=== PATIENT | male | born 1950 | race Caucasian/White ===

== ENCOUNTER 2017-12-01 08:14 | Day surgery (SDC) | payer MEDICARE, OTHER, SELFPAY ==
[2017-12-01] VITALS (7 sets, daily range): BP systolic 95–133; BP diastolic 49–75; PULSE 61–71; RESP 18; TEMP 36.1–36.7; O2SAT 95–97; BMI 33.4
--- NOTE | 2017-12-01 | IMM_PTH ---
PATIENT: JEAN CARLOS LUNA LOC: EN U#:[id number] AGE/SX: 67/M ROOM: RE12/01/[address]: Dr. Leonardo Savage MD : 1950 BED: DIS: 12/01/2017 SPEC #: [id number] RECD: 12/02/17 11:44 STATUS: JOSEFINA REKaren #: [id number] JEROME: 12/01/17 00:[address]: Leonardo Savage DEPT: IMMUNOHISTOCHEMISTRY RECD BY: María Elena Stevens ENTERED: 12/02/17 11:44 SP TYPE: IMMUNO OTHR DR: Dr. Primo Savage III, MD Tissues: A - Stomach, NOS Procedures: H Pylori (initial) PHYSICIAN & INSTITUTION [place] [id number] SPECIMEN INFORMATION: Tissue Source: A ? Antral biopsy Clinical Info: Esophageal dysfunction; dysphagia Specimen Number: [id number] CPT code: 29706 METHODOLOGY: Deparaffinized sections of prefer/formalin-fixed tissue or PAP/DQ stained slides are incubated with monoclonal/polyclonal antibodies/oligonucleotide probes. Localization is made via biotin free immunoperoxidase method. Appropriate controls are performed and reacted as expected. Results on target cell population are indicated in the following table: RESULTS: ANTIBODY / CLONE RESULT Block A H Pylori (polyclonal) negative These tests were developed and their performance characteristics determined by [facility]. They may not have been cleared or approved by the U.S. Food and Drug Administration. The FDA has determined that such clearance or approval is not necessary. INTERPRETATION: A. Antral biopsy: Negative for Helicobacter pylori organisms. SJ:asndor 12/03/17
--- NOTE | 2017-12-01 | EGD_PTH ---
PATIENT: JEAN CARLOS LUNA LOC: EN U#:[id number] AGE/SX: 67/M ROOM: RE12/01/[address]: Dr. Leonardo Savage MD : 1950 BED: DIS: 12/01/2017 SPEC #: [id number] RECD: 12/01/17 13:08 STATUS: JOSEFINA JANEEN #: [id number] JEROME: 12/01/17 00:[address]: Leonardo Savage DEPT: SURGICAL PATHOLOGY RECD BY: [place] Lauren ENTERED: 12/01/17 14:23 SP TYPE: EGD BIOPSY OT DR: Dr. Primo Savage III, MD Tissues: A - Gastric mucous membrane B - Esophageal mucous membrane Procedures: Surgery Specimen Level IV HEADER OPERATION: EGD PRE-OP DIAGNOSIS: Esophageal dysfunction; dysphagia TISSUE SUBMITTED: A ? Antral biopsy for H. pylori and path, B ? Distal esophageal biopsy MICROSCOPIC DIAGNOSIS A. Antral biopsy: Mild gastritis. A minute lymphoid aggregate, favor benign. B. Distal esophagus, biopsy: Fragments of squamous epithelium with minimal chronic inflammation. SJ:sandor 12/02/17 COMMENT A. The results of immunohistochemistry for Helicobacter pylori will be reported separately ([id number]). MICROSCOPIC DESCRIPTION Slides are reviewed. A. The specimen shows fragments of gastric mucosa with chronic inflammatory cell infiltrates in the lamina propria consisting of lymphocytes and plasma cells, consistent with mild chronic gastritis. A minute lymphoid aggregate is also noted, favor benign. GROSS DESCRIPTION A - Received in fixative is one container labeled with the patient's name and designated antral biopsy. The specimen consists of one irregular fragment of light montoya soft tissue that measures 0.5 x 0.2 x 0.1 cm. The specimen is totally submitted in one cassette. B - Received in fixative is one container labeled with the patient's name and designated distal esophagus biopsy. The specimen consists of multiple irregular fragments of light montoya soft tissue that in aggregate measure 0.3 x 0.2 x 0.1 cm. The specimen is totally submitted in one cassette. / AM:sandor 12/01/17 TC:3 CPT: 55684 x2
--- NOTE | 2017-12-01 10:39 | OP.PCM_ITS ---
Problem List (1) Dysphagia Status: Acute Qualifiers: Dysphagia type: esophageal phase Qualified Code(s): R13.10 - Dysphagia, unspecified (2) Family history of colon cancer in father Status: Acute Report of Operation Date of Procedure: 12/01/17 Pre-Operative Diagnosis: Intermittent food bolus esophageal obstruction. Family history of colon cancer Post-Operative Diagnosis: Normal-appearing upper endoscopy. Descending and sigmoid diverticulosis Surgery/Procedure Performed:: Esophagogastroduodenoscopy with antral and distal esophageal biopsies. Colonoscopy Description of Surgical Findings:: Amount and informed consent was obtained. 67-year-old gentleman was taken to the endoscopy suite. His oropharynx anesthetized with Topex. He was placed in a left lateral decubitus position. He underwent monitored anesthesia care. Flexible gastroscope was inserted into the esophageal inlet and advanced without difficulty. EG junction was at 43 cm. Did not appear to be remarkable. Possibly a very small hiatal hernia but this was not distinct. There is no evidence to suggest reflux esophagitis. The scope was then further advanced to the stomach which appeared to be unremarkable. Scope was advanced through the pylorus first and second portion of the duodenum were inspected this was not remarkable. The scope was withdrawn back to the stomach retroflexed the EG junction and cardia inspected this appeared to be snug against the scope. The scope was placed back in antegrade viewing position. Antral biopsy was obtained. Excess fluid and air was aspirated free. The scope was withdrawn to the distal esophagus and distal esophageal biopsy obtained. That area was inspected and it did not see any gross evidence of hernia. The scope was carefully withdrawn without additional abnormality Digital rectal exam performed. Normal anal tone. Mild hemorrhoidal changes. 2 + with prostate. Flexible colonoscope inserted the rectum advanced through a somewhat tortuous sigmoid colon extensively involved with diverticulosis and the scope was rather readily advanced to the transverse colon and with transabdominal pressure is advanced to the cecum. The cecum ileocecal valve area was nicely achieved bowel prep was good care scope was carefully withdrawn from the ascending transverse descending and sigmoid colon. Descending and sigmoid diverticulosis identified but no evidence of acute inflammation. The scope was retroflexed within the rectum anorectal verge and hemorrhoidal changes noted. Excess fluid nurse aspirated free the procedure was completed with the patient tolerating it well. Impression No gross evidence of findings that would correlate with intermittent food bolus obstructions or dysphasia. Antral and distal esophageal biopsies pending. Descending and sigmoid diverticulosis. Recommendations will be for follow-up colonoscopy in 5 years based upon family history. Previous colonoscopy was October 26, 2012. There were no acute upper GI findings at this time. The patient will be notified of pathology results as they become available. Cc: Dr. Primo Savage, III The upper endoscopy started at 1009. It was completed at 1014. The colonoscopy was started at 1018. The cecum was reached at 1023. The procedure was completed at 1029. Leonardo Savage M.D., F.A.C.S. Type of Anesthesia:: MAC
== END 2017-12-01 11:10 | disposition home or self-care (01) ==
LOC: EN 08:15 → AC 08:16
PROVIDERS: Family Provider Family Medicine; PCP Family Medicine; Visit Provider Surgery
PROC: 0DJD8ZZ Inspection of Lower Intestinal Tract, Via Natural or Artificial Opening Endoscopic (ICD-10-PCS; CPT 45378; principal; 2017-12-01 09:10)
DX: K21.0 Gastro-esophageal reflux disease with esophagitis (principal); K29.70 Gastritis, unspecified, without bleeding; K57.30 Diverticulosis of large intestine without perforation or abscess without bleeding; K64.9 Unspecified hemorrhoids; K58.9 Irritable bowel syndrome, unspecified; F41.9 Anxiety disorder, unspecified; N52.9 Male erectile dysfunction, unspecified; M19.90 Unspecified osteoarthritis, unspecified site; I49.9 Cardiac arrhythmia, unspecified; Z86.010 Personal history of colon polyps; Z80.0 Family history of malignant neoplasm of digestive organs; Z87.19 Personal history of other diseases of the digestive system; Z87.891 Personal history of nicotine dependence; Z79.899 Other long term (current) drug therapy
CPT/HCPCS: 43239; 45378; 88305; 88342; J7120

== ENCOUNTER 2020-11-22 13:03 | Outpatient (RCR) | payer MEDICARE, OTHER, SELFPAY ==
[2017-12-01 08:28] VITALS: BMI 33.4
[2020-11-22] MEDS: COVID-19 VACC, MRNA(PFIZER)/PF 30 MCG/0.3 ML SYRINGE IM (11:34)
[2020-12-13] MEDS: COVID-19 VACC, MRNA(PFIZER)/PF 30 MCG/0.3 ML SYRINGE IM (07:05)
== END 2020-11-22 23:59 ==
LOC: IMMUN 13:03
PROVIDERS: PCP Family Medicine; Visit Provider Family Medicine
DX: Z23 Encounter for immunization (principal)
CPT/HCPCS: 0001A; 0002A

== ENCOUNTER → 2021-08-21 07:16 | Outpatient (CLI) | payer MEDICARE, OTHER, SELFPAY ==
--- NOTE | 2021-08-21 07:19 | CT_ITS ---
STUDY: CT LEFT LOWER EXTREMITY WITHOUT CONTRAST REASON FOR EXAM: Left knee osteoarthritis, left knee deformity, presurgical planning. TECHNIQUE: Transaxial CT imaging of the lower extremity was performed. Coronal and sagittal images were reformatted. Individualized dose optimization techniques were used for this CT. COMPARISON: Radiograph report 07/19/2015. FINDINGS: Knee: There are marginal osteophytes, subchondral eburnation and moderate to severe joint space narrowing of the lateral femorotibial compartment (coronal reconstruction 33). Normal medial femoral condyle and lateral tibial plateau. There is preservation of the articular joint space of the medial knee compartment. There are small marginal osteophytes with mild joint space narrowing of the lateral aspect of the patellofemoral articulation (axial image 295). Normal proximal tibiofibular articulation. There is a sdpcx-um-rlxamnyo sized joint effusion. The quadriceps tendon is grossly normal. The patellar tendon is grossly normal. Normal Hoffa''s fat pad. There is vascular calcification. Hip: There is left hip arthrosis with marginal osteophytes, subchondral cystic change of the acetabulum and joint space narrowing (coronal reconstruction 64). There is a herniation pit in the lateral femoral neck (coronal reconstruction 65). There is an os acetabula. There is a chondroid series tumor in the greater trochanter (coronal reconstruction 71-73) measuring 1.6 cm in length without endosteal scalloping, most likely an enchondroma. Ankle: Normal tibiotalar, posterior subtalar, talonavicular and calcaneocuboid articulations. There is a type II accessory navicular (T2 axial image 648). There is a bone island in the talar body adjacent to the sinus tarsi (T1 sagittal image 25). There is a small posterior calcaneal enthesophyte. CT/Extremity Lower without Contra IMPRESSION: Left knee osteoarthritis. 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 Electronically Signed: Tim Gutierres MD at 14:52 EST Tel , Service support ,
== END ==
PROVIDERS: PCP Family Medicine; Referring Provider Specialist; Visit Provider Specialist
DX: M21.062 Valgus deformity, not elsewhere classified, left knee (principal)
CPT/HCPCS: 73700

== ENCOUNTER 2022-03-11 19:13 | Emergency (ER) | payer MEDICARE, OTHER, SELFPAY ==
[2022-03-11 19:13] VITALS: BP 154/67; PULSE 89; RESP 18; TEMP 37.1; O2SAT 96; BMI 35.5
--- NOTE | 2022-03-11 21:32 | CT_ITS ---
EXAM: CT ABDOMEN AND PELVIS WITH INTRAVENOUS CONTRAST CLINICAL INDICATION: RUQ blunt abd trauma TECHNIQUE: Helically acquired images were obtained of the abdomen and pelvis with intravenous contrast. This CT exam was performed using one or more of the following dose reduction techniques: automated exposure control, adjustment of the mA and/or kV according to patient size, and/or use of iterative reconstruction technique. This report was created using [employer] report generation technology. CONTRAST: IV 100mL Isovue-370 RADIATION DOSE: CTDIvol = 18.94 mGy, DLP = 1584.40 mGy-cm. COMPARISON: None. FINDINGS: LOWER THORAX: Coronary artery calcifications. Lung bases are clear. No cardiomegaly. No significant pericardial effusion. ABDOMEN: LIVER: There is diffuse low-attenuation of the liver. GALLBLADDER AND BILE DUCTS: Cholelithiasis. No gallbladder distention or wall edema. No intra- or extrahepatic biliary ductal dilation. PANCREAS: Unremarkable. No focal cystic or solid mass. SPLEEN: Unremarkable. Normal size without focal cystic or solid mass. ADRENALS: Unremarkable. No nodules. KIDNEYS AND URETERS: Unremarkable. Normal renal size and position. No hydronephrosis. STOMACH AND BOWEL: Unremarkable. No stomach or bowel distention. No focal inflammatory change. PELVIS: APPENDIX: No evidence of acute appendicitis. BLADDER: Unremarkable. REPRODUCTIVE: Unremarkable as visualized. No mass. ABDOMEN and PELVIS: INTRAPERITONEAL SPACE: Unremarkable. No ascites or other fluid collection. No free air. BONES/JOINTS: Left hip arthroplasty. No suspicious lytic or blastic abnormality. SOFT TISSUES: Slight gynecomastia. No discrete abdominal or pelvic wall hernia. VASCULATURE: Unremarkable. Abdominal aorta is non-dilated. LYMPH NODES: Unremarkable. No enlarged lymph nodes. CT/Abdomen/Pelvis W IV Cont ONLY IMPRESSION: 1. Fatty liver. 2. Cholelithiasis. 3. No acute abdominopelvic abnormality. 4. Coronary artery disease. 5. Slight gynecomastia. Electronically Signed: Saud Reinoso MD at 23:11 EDT ,
--- NOTE | 2022-03-11 21:34 | ED.VIS.FALL ---
HPI HPI - Fall History of Present Illness Chief Complaint: Fall Detail of Chief Complaint: Blunt trauma right side of his abdomen and lower rib cage. Informant: patient and spouse/S.O. Occured/Mechanism Occurred: Today and Hours Mechanism/Context: Yes same level fall Usually ambulates: Without assistance Pain/Injury Pain Location: chest, abdomen and upper extremity Quality of Pain: Sharp Current Severity: Moderate Maximum Severity: Moderate Associated Symptoms Associated Symptoms: Negative for Parasthesias, Weakness, Loss of function, Inability to ambulate, Loss of consciousness or Amnesia Narrative Narrative: 71-year-old male. Slipped on a wet floor at home fell and hit his right upper quadrant his abdomen and right lower rib cage on a table. Went to the urgent care. Due to the bruising of his abdomen they want him to be seen in the ER. He also lacerated his right small finger when he fell. Denies any head injury. No LOC. He is on no blood thinners. Prior similar symptoms: No Recent Illness/Hospitalization: No PFSH PFS Medical History (Updated 03/11/22 @ 23:[address] Solo Lemus MD) Acute hemorrhoid Constipation Diarrhea Diverticulosis of colon without hemorrhage Erectile dysfunction Family history of colon cancer in father Palpitations Personal history of colonic polyps Home Medications citalopram 20 mg tablet 20 mg PO DAILY 06/27/16 [History Last Taken Unknown] nadolol 20 mg tablet 20 mg PO DAILY 06/27/16 [History Last Taken Unknown] omeprazole 20 mg capsule,delayed release 20 mg PO DAILY 11/10/17 [History Last Taken Unknown] Allergy/AdvReac Type Severity Reaction Status Date / Time No Known Allergies Allergy Verified 03/11/22 19:15 Family History Father Arthritis Colon cancer Diabetes Cancer Lung Hypertension Mother Arthritis Heart disease Hypertension Cancer Skin Surgical History History of esophagogastroduodenoscopy (EGD) S/P colonoscopy S/P surgical removal of pilonidal cyst Social History Smoking Status: Never smoker second hand exposure: No alcohol intake: never substance use type: does not use caffeine: Yes what type of physical activity do you participate in: none frequency: does not exercise seatbelt use: always ROS ROS ED ROS Narrative No recent illness. Review of Systems ROS Unobtainable: Denies due to encephalopathy Constitutional Constitutional ED: Denies chills Eyes Eyes: Denies blurry vision ENT ENT ED: Denies ear pain Cardiovascular Cardiovascular: Denies chest pain Respiratory/Chest Respiratory/Chest: Denies cough or dyspnea Gastrointestinal Gastrointestinal: Reports abdominal pain; Denies constipation, diarrhea, melena or nausea Genitourinary Genitourinary ED: Denies dysuria Musculoskeletal Musculoskeletal: Denies arthralgias Integumentary Denies abscess Neurologic Neurologic: Denies headache(s) Psychiatric Psychiatric: Denies anxiety Endocrine Endocrinology: Denies polydipsia Hematologic/Lymphatic Hematologic/Lymphatic: Denies easy bleeding Allergic/Immunologic Allergic/Immunologic ED: Denies mouth swelling EXAM Physical Exam Narrative Exam Narrative: 71-year-old male no acute distress. Vital signs stable afebrile. H EENT exam unremarkable atraumatic. C-spine nontender. Trachea midline. Lungs clear to auscultation. Heart regular rate and rhythm rate about 90 no murmur. Chest wall right lower rib cage tenderness. No crepitus or subcu air. Abdomen soft. Right upper and right flank tenderness with bruising. Left-sided abdomen nontender. Pelvic girdle intact. He has normal fixture maker strength. Normal dorsi plantarflexion of the extremities. He is able to flex and extend both hips and knees. He has had left hip and knee replacement. Dorsi plantar flexion intact. Back spine nontender. Neurologically is awake alert with no focal motor deficits. GCS 15. Const Vital Signs: 03/11/22 19:13 03/11/22 21:11 03/11/22 23:03 Temperature 98.7 F Temperature Source Temporal Pulse Rate 89 Respiratory Rate 18 17 Respiratory Effort Normal Respiratory Depth Normal Respiratory Pattern Normal Blood Pressure 154/67 H Blood Pressure Mean 96 Pulse Ox 96 Oxygen Delivery Method Room Air Room Air Positive well nourished and well developed; Negative for obese, cachectic, contractures or unkempt General Appearance ED: well developed; Negative for unkempt, cachectic or contractures Nutritional Appearance: Negative for cachectic or obese HEENT Reports normocephalic atraumatic; Negative for trauma, contusion, hematoma or tenderness Eyes PERRL and EOMs intact bilaterally General Eye ED: Negative for pale conjunctiva or scleral icterus Neck full ROM, no lymphadenopathy and supple General: Negative for tenderness Chest Wall inspection of chest normal; Negative for palpation of chest normal Chest Narrative: Tenderness right lower rib cage. No crepitance or subcu air. Resp normal respiratory effort, no retractions and clear to auscultation bilaterally Effort and Inspection: Negative for pain with movement Auscultation: Negative for rales, rhonchi, wheezes or diminished lung sounds Cardio regular rate, regular rhythm, S1 normal heart sound, S2 normal heart sound and no murmurs Rate: Negative for bradycardia GI non-distended and no masses; Negative for non-tender GI Narrative: Right-sided abdominal wall bruising and tenderness. No peritoneal signs. Inspection: Negative for abdominal distention Auscultation: normoactive bowel sounds Palpation: soft; Negative for guarding or rebound tenderness present Back/Spine no CVA tenderness General Back: Negative for CVA tenderness Cervical Spine: Negative for cervical spine tenderness Lumbar Spine / Lower Back: Negative for lumbar spinal tenderness or paraspinal muscle tenderness Neuro oriented x3, moves all extremities and no focal motor deficits Saundra Coma Scale: document GCS findings (15) Spontaneous Obeys Commands Oriented 15 Sensorium / Orientation: alert, oriented to person, oriented to place and oriented to time; Negative for orientation impaired, confused, lethargic or stuporous Motor Exam: strength 5/5 throughout Psych Appearance: Negative for unkempt Skin Skin Narrative: Bruising right abdominal wall. Left small finger laceration. Full range of motion. No bony deformity. Lesions: No no lesions Rashes: No no rashes Trauma: laceration; Negative for abrasion MDM MDM MDM Narrative Medical decision making narrative: 71-year-old male slipped and fell hit his table has right lower rib cage and right upper quadrant and flank abdominal pain. Chest x-ray being obtained. CT abdomen pelvis. Due to that he will need screening labs to the IV contrast. He did not waiting for pain. Eventually will repair his left small finger laceration. Repeat exam patient doing very well at 11:35 PM. I suture repaired his left small finger with 2 simple erupted 5-0 Ethilon sutures. Repeat exam he has the bruising on his right abdomen and flank it is no worse. Heart lung back exam unremarkable he is moving all 4 extremities. Discussed at length test results with he and family. Lab Data Attestation: I reviewed the patient's lab results. Lab results narrative: CBC shows a white count 8. H&H 12 and 39. Platelet count 258. Electrolytes unremarkable gap of 7 normal BUN and creatinine. Normal glucose. CAT scan shows incidental finding of cholelithiasis. No acute significant abdominal trauma. Chest x-ray shows no obvious rib fractures. Labs: Laboratory Results - last 24 hr 03/11/22 03/11/22 21:44 21:44 WBC 8.1 RBC 4.23 L Hgb 12.4 L Hct 39.0 L MCV 92.2 MCH 29.3 MCHC 31.8 L RDW Std Deviation 44.3 H RDW Coeff of Norris 13.1 Plt Count 258 MPV 8.8 Immature Gran % (Auto) 0.400 Neut % (Auto) 75.0 H Lymph % (Auto) 14.5 L [place] % (Auto) 9.2 Eos % (Auto) 0.5 Baso % (Auto) 0.4 Absolute Neuts (auto) 6.0 Absolute Lymphs (auto) 1.17 Nucleated RBC % 0 Sodium 142 Potassium 4.3 Chloride 109 H Carbon Dioxide 26.0 Anion Gap 7 BUN 15 Creatinine 0.79 Estim Creat Clear Calc 76.52 Est GFR (MDRD) Af Amer 126 Est GFR (MDRD) Non-Af 104 BUN/Creatinine Ratio 19.1 Glucose 108 H Calcium 8.9 Radiography Diagnostic Testing: Clinical Impression(s) from Imaging Studies Abdomen/Pelvis CT 03/11/22 21:32 IMPRESSION: 1. Fatty liver. 2. Cholelithiasis. 3. No acute abdominopelvic abnormality. 4. Coronary artery disease. 5. Slight gynecomastia. Electronically Signed: Saud Reinoso MD at 23:11 EDT , Chest X-Ray 03/11/22 22:28 IMPRESSION: No radiographic evidence of acute cardiopulmonary disease. Electronically Signed: Saud Reinoso MD at 22:59 EDT , Chest x-ray, portable, single view interpreted by myself and the radiologist shows no acute abnormality. No fracture. No pneumothorax. I did discuss the x-ray results with the patient. Possibility of nondisplaced rib fractures not seen on a chest x-ray. Procedures Lacerations Left small finger laceration.: Length: 0.79 in Depth: Skin Shape: Linear Prep: Betadine and Shure-Clens Laceration repair: Irrigated, Lidocaine and Local Number of Sutures/Ana Luisa: 2 Suture Information: Ethilon, Simple and 4-0 Comment: Left small finger laceration. 2 cm. Palmar aspect distal phalanx. Local anesthetized with lidocaine. Cleaned with iodine then Shur-Clens then washed and irrigated with saline. Explored. Closed using 2 simple erupted 5-0 Ethilon sutures. Proper hemostasis wound closure is obtained. Patient and are instructed on wound care and suture removal. Discharge Plan Triage Chief Complaint: Fall ED Provider: Solo Lemus Dx/Rx/DC Orders Clinical Impression: Fall, Abdominal wall contusion, Finger laceration Instructions: Bruises (Contusions), ED Laceration, Hand: All Closures Prescriptions: No Action omeprazole 20 mg capsule,delayed release(DR/EC) 20 mg PO DAILY nadolol 20 MG tablet 20 mg PO DAILY citalopram 20 MG tablet 20 mg PO DAILY Primary Care Provider: Sebastian Velasco Referrals: Sebastian Velasco MD [Primary Care Provider] - 10 Day for suture removal Activity Restrictions/Additional Instructions: Ice to all sore areas especially abdominal wall. Tylenol for pain. Stitches in your left small finger should be out in 10 days. Keep that area clean. Clean daily with soap and water. Dry thoroughly. Do not let it soak in dirty water. Return if any signs of infection in the finger such as pus, red streaks significant swelling or fever. Disposition Disposition: Home, Self Care
[2022-03-11 21:50] LABS: Absolute Lymphocyte Count 1.17 X10^3/uL (0.83-4.51); Basophil# 0.03 X10^3/uL; Basophil% 0.4 % (0-1); Eosinophil# 0.04 X10^3/uL; Eosinophils% 0.5 % (0-5); Hemoglobin 12.4 g/dL (13.0-16.5); Lymphocyte # 1.17 X10^3/ul (0.83-4.51); Lymphocyte % 14.5 % (19-41); Mean Corp Hgb Conc 31.8 g/dL (32-36); Mean Corpuscular Hgb 29.3 pg (27.0-32.0); Mean Corpuscular Volume 92.2 fL (80-94); Mean Platelet Vol. 8.8 fl (6.2-12.0); Monocyte# 0.74 X10^3/uL; Monocyte% 9.2 % (0-10); NRBC Flagged by Analyzer 0 % (0-5); Neutrophil # 6.04 X10^3/uL (2.7-7.7); Platelet Count 258 K/mm3 (150-450); RBC Distribution Width CV 13.1 % (11.6-14.6); RBC Distribution Width SD 44.3 fl (35.1-43.9); Red Blood Count 4.23 M/mm3 (4.6-6.2); White Blood Count 8.1 K/mm3 (4.4-11.0)
[2022-03-11 22:03] LABS: BUN 15 mg/dL (7-18); BUN/Creat Ratio 19.1 RATIO (10-20); Calcium,Total 8.9 mg/dL (8.5-10.1); Chloride 109 mmol/L (98-107); Creatinine, Serum 0.79 mg/dL (0.70-1.30); EST Glomerular Filtration Rate 104 mL/min (>60); Est Glom Filt Rate - Afr Amer 126 mL/min (>60); Estimated Creatinine Clearance 76.52 ml/min; Glucose 108 mg/dL (74-106); Potassium 4.3 mmol/L (3.5-5.1); Sodium Level 142 mmol/L (136-145)
[2022-03-11 22:04] LABS: Anion Gap 7 (5-15)
--- NOTE | 2022-03-11 22:28 | RAD_ITS ---
EXAM: XR CHEST, 2 VIEWS CLINICAL INDICATION: right lower rib trauma TECHNIQUE: Frontal and lateral views of the chest. This report was created using [employer] report generation technology. COMPARISON: None. FINDINGS: LUNGS AND PLEURAL SPACES: Unremarkable. No consolidation or edema. No pneumothorax. No effusion. HEART: Unremarkable. Cardiac silhouette not enlarged. MEDIASTINUM: Central airways and mediastinal contour are unremarkable. BONES/JOINTS: Unremarkable. SOFT TISSUES: Unremarkable. RAD/Chest PA and Lateral IMPRESSION: No radiographic evidence of acute cardiopulmonary disease. Electronically Signed: Saud Reinoso MD at 22:59 EDT ,
[2022-03-11] MEDS: Lidocaine 1% (20 ml mdv) 20 ML Vial 10 ML INFILT (22:45)
[2022-03-11 23:03] VITALS: RESP 17
[2022-03-11 23:44] VITALS: BP 132/74; PULSE 78; RESP 17; O2SAT 99
== END 2022-03-11 23:46 | disposition home or self-care (01) ==
PROVIDERS: Emergency Provider Emergency Medicine; PCP Family Medicine; Visit Provider Emergency Medicine
DX: S30.1XXA Contusion of abdominal wall, initial encounter (principal); S61.217A Laceration without foreign body of left little finger without damage to nail, initial encounter; W18.30XA Fall on same level, unspecified, initial encounter
CPT/HCPCS: 12001; 71046; 74177; 80048; 85025; 99284; Q9967; A4216

== ENCOUNTER 2022-12-09 05:23 | Day surgery (SDC) | payer MEDICARE, OTHER, SELFPAY ==
[2022-12-09] VITALS (7 sets, daily range): BP systolic 119–133; BP diastolic 72–79; PULSE 85–96; RESP 16–18; TEMP 36.7–37.2; O2SAT 93–98; BMI 35.4
[2022-12-09] MEDS: Lactated Ringers 1,000 ML 15 ML IV (05:51)
--- NOTE | 2022-12-09 06:01 | PCM.HP.STD ---
[facility] - General General Date of Service: 12/09/22 Chief Complaint: Surveillance for colon cancer. [facility] Narrative JEAN CARLOS LUNA, is a 72 M who presents for colonoscopy. I assisted him November 2017 and detected diverticulosis. The patient has a family history with a father who had colon cancer. He presents via open access today. His father developed colon cancer in his 60s. The patient denies any abdominal pain. No bright red blood per rectum or melena. He has had a hip and knee replacement since his previous colonoscopy. He otherwise states that he is enjoying good health [facility] Medical History (Updated 12/05/22 @ 11:58 by Trice Olivo) Acute hemorrhoid Alcohol use Anxiety and depression Arthritis Cancer Constipation Depression Diarrhea Diverticulosis of colon without hemorrhage Erectile dysfunction Family history of colon cancer in father Gastric reflux High cholesterol History of stress test Non-smoker Palpitations Personal history of colonic polyps Home Medications citalopram 20 mg tablet 20 mg PO DAILY 06/27/16 [History Last Taken Unknown] calcium carbonate 200 mg calcium (500 mg) chewable tablet (Tums) 200 mg PO BID PRN reflux 11/06/22 [History Last Taken Unknown] prednisolone acetate 0.12 % eye drops,suspension 1 drp ophthalmic (eye) ONCE 11/06/22 [History Last Taken Unknown] simvastatin 10 mg tablet 10 mg PO DAILY 11/06/22 [History Last Taken Unknown] vitamins A,C,Z-hxzr-jvgcpq 4,296 mcg-226 mg-90 mg capsule (PreserVision AREDS) 1 cap PO DAILY 11/06/22 [History Last Taken Unknown] acetaminophen 325 mg capsule 325 mg PO Q6H PRN Pain 12/05/22 [History Last Taken Unknown] ibuprofen 200 mg tablet 200 mg PO Q6H PRN Pain 12/05/22 [History Last Taken Unknown] amoxicillin 500 mg tablet 2,000 mg PO X1 12/09/22 [History Last Taken 12/09/22 05:00] Allergy/AdvReac Type Severity Reaction Status Date / Time No Known Allergies Allergy Verified 12/09/22 05:42 Family History Father Arthritis Colon cancer Diabetes Cancer Lung Hypertension Mother Arthritis Heart disease Hypertension Cancer Skin Surgical History (Updated 12/05/22 @ 11:51 by Trice Olivo) History of esophagogastroduodenoscopy (EGD) History of total hip replacement History of total knee replacement S/P colonoscopy S/P surgical removal of pilonidal cyst Social History Smoking Status: Never smoker second hand exposure: No alcohol intake: never substance use type: does not use caffeine: Yes what type of physical activity do you participate in: none frequency: does not exercise seatbelt use: always ROS Constitutional Constitutional: Reports systems reviewed and no addt'l complaints, except as documented Cardiovascular Cardiovascular: Denies chest pain Respiratory/Chest Respiratory/Chest: Denies shortness of breath at rest Gastrointestinal Gastrointestinal: Denies abdominal pain, change in bowel habits, hematochezia or melena Vital Signs Vital Signs Vital Signs: 12/09/22 05:43 12/09/22 05:44 Temperature 98.1 F Temperature Source Temporal Pulse Rate 96 Respiratory Rate 18 Respiratory Pattern Normal Blood Pressure 133/75 H Blood Pressure Mean 94 Blood Pressure Source Monitor Blood Pressure Position Semi-Fowlers Blood Pressure Location Left Arm Pulse Ox 98 Oxygen Delivery Method Room Air Weight Weight: 261 lb Body Mass Index (BMI) 35.4 Physical Exam Const alert, oriented x3 and no apparent distress General Appearance: cooperative and comfortable Eyes General Eye: normal appearance of both eyes Neck General: normal visual inspection Chest inspection of chest normal Resp Effort and Inspection: able to speak in complete sentences and symmetric chest movement Auscultation: clear to auscultation bilaterally Cardio regular rate and regular rhythm GI soft to palpation, non-tender and non-distended Extremity no calf tenderness Neuro oriented x3 Psych thought process normal Assessment & Plan Assessment/Plan (1) Encounter for screening for malignant neoplasm of colon: PLAN: The patient presents via open access today for a surveillance colonoscopy based upon family history of colon cancer in his father. He is aware of the technique, benefit, risk, alternatives. He has had an opportunity to ask and have questions answered. We will proceed as noted. Leonardo Savage M.D., F.A.C.S.
--- NOTE | 2022-12-09 06:47 | OP.COLON_ITS ---
Patient Name: Cale Neville Procedure Date: 12/09/2022 6:19 AM Date of : 1950 Age: 72 Procedure: Colonoscopy Indications: Family history of colon cancer in a first-degree relative Providers: Leonardo Savage MD Referring MD: Leonardo Savage MD Medicines: See the Anesthesia note for documentation of the administered medications Patient Profile: Last Colonoscopy: November 2017. Complications: No immediate complications. Procedure: Pre-Anesthesia Assessment: - Prior to the procedure, a History and Physical was performed, and patient medications and allergies were reviewed. The patient's tolerance of previous anesthesia was also reviewed. The risks and benefits of the procedure and the sedation options and risks were discussed with the patient. All questions were answered, and informed consent was obtained. Prior Anticoagulants: The patient has taken no previous anticoagulant or antiplatelet agents. ASA Grade Assessment: II - A patient with mild systemic disease. After reviewing the risks and benefits, the patient was deemed in satisfactory condition to undergo the procedure. After I obtained informed consent, the scope was passed under direct vision. Throughout the procedure, the patient's blood pressure, pulse, and oxygen saturations were monitored continuously. The colonoscope was introduced through the anus and advanced to the cecum, identified by appendiceal orifice and ileocecal valve. The colonoscopy was performed without difficulty. The patient tolerated the procedure well. The quality of the bowel preparation was good. The ileocecal valve and the appendiceal orifice were photographed. Scope In: 6:29:03 AM Scope Withdrawal Time 0 hours 8 minutes 24 seconds Scope Out: 6:42:11 AM Total Procedure Duration Time 0 hours 13 minutes 8 seconds Findings: The digital rectal exam findings include non-thrombosed external hemorrhoids, non-thrombosed internal hemorrhoids and internal hemorrhoids that prolapse with straining, but spontaneously regress to the resting position (Grade II). Pertinent negatives include normal prostate (size, shape, and consistency). Multiple diverticula were found in the sigmoid colon and descending colon. The exam was otherwise without abnormality. Impression: - Non-thrombosed external hemorrhoids, non-thrombosed internal hemorrhoids and internal hemorrhoids that prolapse with straining, but spontaneously regress to the resting position (Grade II) found on digital rectal exam. - Diverticulosis in the sigmoid colon and in the descending colon. - The examination was otherwise normal. - No specimens collected. Recommendation: - Discharge patient to home. - Resume previous diet. - Continue present medications. - Repeat colonoscopy in 5 years for surveillance. Procedure Code(s): --- Professional --- 06603, Colonoscopy, flexible; diagnostic, including collection of specimen(s) by brushing or washing, when performed (separate procedure) Diagnosis Code(s): --- Professional --- K64.1, Second degree hemorrhoids K64.4, Residual hemorrhoidal skin tags Z80.0, Family history of malignant neoplasm of digestive organs K57.30, Diverticulosis of large intestine without perforation or abscess without bleeding CPT copyright 2017 [employer]. All rights reserved. The codes documented in this report are preliminary and upon managed services consultant review may be revised to meet current compliance requirements. Leonardo Savage MD 12/09/2022 6:47:06 AM This report has been signed electronically. Number of Addenda: 0 Note Initiated On: 12/09/2022 6:19 AM
--- NOTE | 2022-12-09 06:47 | OP.CCLET_ITS ---
12/09/2022 Sebastian Velasco Re : Colonoscopy procedure for Cale Neville Chiki Velasco This procedure was performed on Friday, December 09, 2022. My impressions and recommendations are as follows: Impressions : - Non-thrombosed external hemorrhoids, non-thrombosed internal hemorrhoids and internal hemorrhoids that prolapse with straining, but spontaneously regress to the resting position (Grade II) found on digital rectal exam. - Diverticulosis in the sigmoid colon and in the descending colon. - The examination was otherwise normal. - No specimens collected. Recommendations : - Discharge patient to home. - Resume previous diet. - Continue present medications. - Repeat colonoscopy in 5 years for surveillance. My findings are described in the full procedure note, which is enclosed. If I can be of further assistance, please feel free to contact me at Doctor phone number(s): Work: . Sincerely, Leonardo Savage MD 12/09/2022 6:47:06 AM This report has been signed electronically.
== END 2022-12-09 07:32 | disposition home or self-care (01) ==
LOC: EN 05:23 → AC 05:25
PROVIDERS: PCP Family Medicine; Referring Provider Family Medicine; Visit Provider Surgery
PROC: 0DJD8ZZ Inspection of Lower Intestinal Tract, Via Natural or Artificial Opening Endoscopic (ICD-10-PCS; CPT 45378; principal; 2022-12-09 06:25)
DX: Z12.11 Encounter for screening for malignant neoplasm of colon (principal); Z80.0 Family history of malignant neoplasm of digestive organs; Z96.649 Presence of unspecified artificial hip joint; K64.4 Residual hemorrhoidal skin tags; K57.30 Diverticulosis of large intestine without perforation or abscess without bleeding; K64.1 Second degree hemorrhoids; E78.00 Pure hypercholesterolemia, unspecified; F32.A Depression, unspecified; K21.9 Gastro-esophageal reflux disease without esophagitis
CPT/HCPCS: G0105; J7120; J2405

== ENCOUNTER → 2023-02-19 | Outpatient (CLI) | payer MEDICARE, OTHER, SELFPAY ==
[2023-02-19 12:01] LABS: Erythrocyte Sedimentation Rate 31 mm/hr (0-20)
[2023-02-19 12:05] LABS: Absolute Lymphocyte Count 1.45 X10^3/uL (0.83-4.51); Absolute Neutrophil Count 4.8 X10^3/uL (2.0-7.7); Basophil# 0.05 X10^3/uL; Basophil% 0.7 % (0-1); Eosinophil# 0.08 X10^3/uL; Eosinophils% 1.1 % (0-5); Hematocrit 43.1 % (40-54); Hemoglobin 14.3 g/dL (13.0-16.5); Lymphocyte # 1.45 X10^3/ul (0.83-4.51); Lymphocyte % 20.5 % (19-41); Mean Corp Hgb Conc 33.2 g/dL (32-36); Mean Corpuscular Hgb 30.6 pg (27.0-32.0); Mean Corpuscular Volume 92.3 fL (80-94); Mean Platelet Vol. 8.9 fl (6.2-12.0); Monocyte# 0.66 X10^3/uL; Monocyte% 9.3 % (0-10); NRBC Flagged by Analyzer 0 % (0-5); Neutrophil # 4.82 X10^3/uL (2.7-7.7); Platelet Count 272 K/mm3 (150-450); RBC Distribution Width CV 13.1 % (11.6-14.6); RBC Distribution Width SD 43.9 fl (35.1-43.9); Red Blood Count 4.67 M/mm3 (4.6-6.2); White Blood Count 7.1 K/mm3 (4.4-11.0)
== END | disposition home or self-care (01) ==
LOC: LAB 11:26
PROVIDERS: PCP Family Medicine; Referring Provider Specialist; Visit Provider Specialist
DX: Z96.642 Presence of left artificial hip joint (principal)
CPT/HCPCS: 36415; 85025; 85652; 86140

== ENCOUNTER → 2023-02-26 | Outpatient (CLI) | payer MEDICARE, OTHER, SELFPAY ==
--- NOTE | 2023-02-26 14:42 | FLU_PTH ---
PATIENT: JEAN CARLOS LUNA [facility] U#:[id number] AGE/SX: 72/M ROOM: RE02/26/[address]: Dr. Aristides Wilson MD : 1950 BED: DIS: 02/26/2023 SPEC #: [id number] RECD: 02/27/23 07:26 STATUS: JOSEFINA REKaren #: [id number] JEROME: 02/26/23 14:[address]: Aristides Wilson DEPT: CYTOLOGY RECD BY: Jennifer Romero ENTERED: 02/27/23 07:26 SP TYPE: Fluid OTHR DR: Dr. Sebastian Velasco MD Tissues: Synovial fluid Procedures: Special Stain Group II Surgery Specimen Level IV Cytospin Fluid HEADER OPERATION: Not noted PRE-OP DIAGNOSIS: Z96.652 TISSUE SUBMITTED: Left knee synovial fluid for cytology DIAGNOSIS CYTOLOGY Left knee synovial fluid for cytology (cytospin and cell block): Negative for malignant cells. Acute inflammation. See comment. KENNEDY:sandor 03/02/2023 COMMENT Clinical correlation and appropriate follow up are necessary. CYTOLOGY STUDY Slides are reviewed. CYTOLOGY GROSS Received is 2 ml of yellowish cloudy fluid labeled with the patient's name and and designated per the requisition as left knee synovial. Submitted for cytology preparation including cell block. / sandor 02/27/2023 TC:2 CPT: 92762, 63334
[2023-02-26 16:53] LABS: Cytology, Body Fluid / CSF SEE PATHOLOGY REPORT
== END | disposition home or self-care (01) ==
LOC: LABSPEC 16:05
PROVIDERS: PCP Family Medicine; Referring Provider Specialist; Visit Provider Specialist
DX: Z96.652 Presence of left artificial knee joint (principal); M25.462 Effusion, left knee; Z09 Encounter for follow-up examination after completed treatment for conditions other than malignant neoplasm
CPT/HCPCS: 87015; 87070; 87075; 87101; 87116; 87205; 87206; 88108; 88305; 88313

== ENCOUNTER → 2024-02-10 | Outpatient (CLI) | payer MEDICARE, OTHER, SELFPAY | END | disposition home or self-care (01) | PROVIDERS: PCP Family Medicine; Referring Provider Nurse Practitioner Primary Care; Visit Provider Nurse Practitioner Primary Care | DX: G47.33 Obstructive sleep apnea (adult) (pediatric) (principal) | CPT/HCPCS: 95811 ==

== ENCOUNTER → 2024-02-29 | Outpatient (CLI) | payer MEDICARE, OTHER, SELFPAY | END | disposition home or self-care (01) | LOC: SL 08:56 | PROVIDERS: PCP Family Medicine; Visit Provider Nurse Practitioner Primary Care | DX: G47.33 Obstructive sleep apnea (adult) (pediatric) (principal) ==

== ENCOUNTER → 2024-07-27 | Outpatient (CLI) | payer MEDICARE, OTHER, SELFPAY | END | disposition home or self-care (01) | PROVIDERS: PCP Family Medicine; Referring Provider Specialist; Visit Provider Specialist | DX: R20.2 Paresthesia of skin (principal); G56.03 Carpal tunnel syndrome, bilateral upper limbs | CPT/HCPCS: 95886; 95912 ==

== ENCOUNTER 2025-05-22 07:14 | Emergency (ER) | payer MEDICARE, OTHER, SELFPAY ==
[2025-05-22] VITALS (9 sets, daily range): BP systolic 126–156; BP diastolic 64–74; PULSE 70–85; RESP 16–18; TEMP 36.5–37.1; O2SAT 94–97; BMI 34.7
--- NOTE | 2025-05-22 07:25 | EX.ED.VIS.UR ---
HPI HPI - URI History of Present Illness Chief Complaint: Cough Informant: patient Onset/Context/Timing Onset: Days (9) Context: Gradual Onset Timing: Continuous Quality: Dry cough Location: Chest Worsened by: - (Nothing) Relieved by: - (Nothing) Associated Symptoms Associated Symptoms: Positive for Nasal Congestion, Chest Pain (With coughing) and Nonproductive cough; Negative for Headache, Sinus Pressure, Myalgias, Nausea, Vomiting, Diarrhea, Shortness of Breath, Hemoptysis or Productive Cough Narrative Narrative: Patient presents with cough that has been getting worse over the past 9 days. Patient was recently on a trip to [place]. Patient states that on the way home, he noticed the cough starting. Patient denies any fevers or chills. Patient states it is mainly a dry cough. Patient admits to some nasal congestion. Patient states nothing makes it better and nothing makes it worse. Patient denies any shortness of breath. Patient admits to some pain in his chest with coughing but denies any other chest pain. Patient denies any nausea, vomiting, or diarrhea. ROS ROS ED Constitutional Constitutional ED: Denies chills or fever(s) Eyes Eyes: Denies blurry vision or change in vision ENT ENT ED: Reports rhinorrhea; Denies sore throat Cardiovascular Cardiovascular: Denies chest pain or palpitations Respiratory/Chest Respiratory/Chest: Reports cough; Denies dyspnea Gastrointestinal Gastrointestinal: Denies nausea or vomiting Genitourinary Genitourinary ED: Denies dysuria or hematuria Musculoskeletal Musculoskeletal: Denies back pain or neck pain Integumentary Denies abscess or rash Neurologic Neurologic: Denies headache(s) or weakness Allergic/Immunologic Allergic/Immunologic ED: Denies mouth swelling or urticaria [facility] Medical History (Updated 05/22/25 @ 11:[address] Harpreet Benitez, DO) Sleep apnea Cancer Depression Alcohol use Arthritis High cholesterol Gastric reflux Non-smoker History of stress test Anxiety and depression Family history of colon cancer in father Acute hemorrhoid Constipation Personal history of colonic polyps Palpitations Erectile dysfunction Diverticulosis of colon without hemorrhage Diarrhea Home Medications ?Medication ?Instructions ?Recorded ?Last Taken ?Type citalopram 20 mg tablet 20 mg PO DAILY 06/27/16 Unknown History calcium carbonate (Tums) 200 mg PO BID PRN reflux 11/06/22 Unknown History simvastatin 10 mg tablet 10 mg PO DAILY 11/06/22 Unknown History vitamins A,C,F-nbdr-wfhbuk 4,296 1 cap PO DAILY 11/06/22 Unknown History mcg-226 mg-90 mg capsule (PreserVision AREDS) acetaminophen 325 mg capsule 325 mg PO Q6H PRN Pain 12/05/22 Unknown History ibuprofen 200 mg tablet 200 mg PO Q6H PRN Pain 12/05/22 Unknown History acetaminophen 300 mg-codeine 30 mg 1 tab PO Q6H PRN cough #10 tabs 05/22/25 Unknown Rx tablet amoxicillin 875 mg-potassium 875 mg PO Q12H #20 TABLETS 05/22/25 Unknown Rx clavulanate 125 mg tablet benzonatate 200 mg capsule 200 mg PO TID 05/22/25 Unknown History dexamethasone sodium phosphate 0.1 1 drp ophthalmic (eye) BID 05/22/25 Unknown History % eye drops Allergy/AdvReac Type Severity Reaction Status Date / Time No Known Allergies Allergy Verified 05/22/25 07:14 Family History Father Arthritis Colon cancer Diabetes Cancer Lung Hypertension Mother Arthritis Heart disease Hypertension Cancer Skin Surgical History History of total hip replacement History of total knee replacement S/P surgical removal of pilonidal cyst History of esophagogastroduodenoscopy (EGD) S/P colonoscopy Social History Smoking Status: Never smoker second hand exposure: No alcohol intake: never substance use type: does not use caffeine: Yes what type of physical activity do you participate in: none frequency: does not exercise seatbelt use: always EXAM Physical Exam Const Vital Signs: 05/22/25 07:15 05/22/25 07:17 05/22/25 07:20 Temperature 98.6 F 98.7 F Temperature Source Temporal Oral Pulse Rate 74 73 Respiratory Rate 18 17 Respiratory Effort Normal Respiratory Depth Normal Respiratory Pattern Normal Blood Pressure 156/70 H 139/74 H Blood Pressure Mean 98 95 Pulse Ox 96 95 Oxygen Delivery Method Room Air Room Air Room Air 05/22/25 07:49 05/22/25 08:17 05/22/25 09:00 Temperature 98.1 F 98.7 F Temperature Source Oral Oral Pulse Rate 76 77 78 Respiratory Rate 16 16 16 Respiratory Effort Respiratory Depth Respiratory Pattern Normal Blood Pressure 150/71 H 126/64 H Blood Pressure Mean 97 84 Pulse Ox 94 94 Oxygen Delivery Method Room Air Room Air 05/22/25 10:00 Temperature 97.9 F Temperature Source Oral Pulse Rate 85 Respiratory Rate 16 Respiratory Effort Respiratory Depth Respiratory Pattern Blood Pressure 127/68 H Blood Pressure Mean 87 Pulse Ox 96 Oxygen Delivery Method Room Air Positive well nourished and well developed Constitutional Narrative: BMI is 34.7. General Appearance ED: well developed and NAD HEENT normocephalic and atraumatic Neck supple, no meningeal signs and no JVD Resp normal respiratory effort Auscultation: wheezes scattered wheezes Cardio Rate: regular rate Rhythm: regular rhythm GI non-tender and non-distended Palpation: soft Neuro oriented x3, CN's II-XII intact bilaterally and no sensory deficits noted Sensorium / Orientation: alert Motor Exam: strength 5/5 throughout Psych mental status grossly normal MDM MDM MDM Narrative Medical decision making narrative: Differential diagnosis includes pneumonia, bronchitis, viral upper respiratory infection, and reactive airway disease. Chest x-ray will be obtained to assess for pneumonia and bronchitis. COVID-19, influenza, and RSV PCR will be obtained to assess for viral illness. CBC will be obtained to assess for leukocytosis and anemia. Basic metabolic profile will be obtained to assess for electrolyte abnormality and renal function. D-dimer will be obtained to assess for pulmonary embolism. History & Record Review Additional record(s) reviewed:: Prior outpatient record, Prior ED visit and Prior labs Lab Data Attestation: I reviewed the patient's lab results. Lab results narrative: CBC was reviewed and was within normal limits. Basic metabolic profile was reviewed and was essentially within normal limits. D-dimer was reviewed and was elevated at 1.64. COVID-19 PCR was reviewed and was negative. Influenza PCR was reviewed and was negative for influenza A and influenza B. RSV PCR was reviewed and was negative. Labs: Laboratory Results - last 24 hr 05/22/25 07:50 WBC 8.6 RBC 4.28 L Hgb 13.0 Hct 39.3 L MCV 91.8 MCH 30.4 MCHC 33.1 RDW Std Deviation 43.0 RDW Coeff of Norris 12.8 Plt Count 241 MPV 8.8 Immature Gran % (Auto) 0.500 Neut % (Auto) 68.1 Lymph % (Auto) 16.7 L Montgomery % (Auto) 11.3 H Eos % (Auto) 2.6 Baso % (Auto) 0.8 Absolute Neuts (auto) 5.9 Absolute Lymphs (auto) 1.44 Nucleated RBC % 0 D-Dimer Quant (PE/DVT) 1.64 H* Sodium 138 Potassium 4.3 Chloride 103 Carbon Dioxide 24.7 Anion Gap 10 BUN 11 Creatinine 0.64 L Estim Creat Clear Calc 109.80 Est GFR (MDRD) Non-Af 101 BUN/Creatinine Ratio 17.4 Glucose 112 H Calcium 8.8 Radiography Chest X-Ray - ED: 2 View, Read by ED Physician, Read by Radiologist and - (Mild subglottic narrowing) Diagnostic Testing: Clinical Impression(s) from Imaging Studies Chest X-Ray 05/22/25 07:38 IMPRESSION: Mild subglottic narrowing. Consider tracheobronchitis. Correlate with upper airway symptoms. Reading Location: [facility] Chest CTA 05/22/25 08:24 IMPRESSION: 1. No evidence of acute or chronic pulmonary embolus. 2. No acute aortic syndrome. 3. Mild cardiac enlargement. Multivessel coronary artery disease. 4. Circumferential thickening, mild stranding around the subglottic trachea extending into the mainstem bronchi. No stenosis seen. Findings suggestive of tracheobronchitis. No phlegmon, abscess or lymphadenopathy. 5. Subcarinal granuloma. 6. Fatty liver Reading Location: [facility] PA and lateral chest x-ray was obtained. There are 2 views. On my independent interpretation, lung blankenship are clear. There is mild subglottic narrowing, consistent with tracheobronchitis. There is normal cardiac silhouette. Bony thorax is normal. Radiologist also interpreted the x-ray and agrees. Because of the elevated D-dimer, CTA of the chest was obtained. There is no evidence of pulmonary embolism. There is circumferential thickening and mild stranding around the subglottic trachea extending to the mainstem bronchi. There is no stenosis. This is suggestive of tracheobronchitis. This was interpreted by the radiologist and was also independently reviewed by myself. Treatment and Re-Evaluation Narrative: Patient was given a DuoNeb aerosol here. Patient was feeling better on reevaluation. Patient was given a dose of Tylenol with codeine. Patient states this helped his cough. Patient was given a prescription for Augmentin for possible tracheobronchitis. Patient was also given prescription for short course of Tylenol with codeine. Patient was instructed to follow-up with his primary care physician in 5 to 7 days. Patient was instructed to return if worse in any way. Patient understood and was agreeable with the plan. All questions were answered. Discharge Plan Triage Chief Complaint: Cough ED Provider: Harpreet Benitez Dx/Rx/DC Orders Clinical Impression: Tracheobronchitis, Cough Instructions: ED Upper Resp Infec Abx Tx Prescriptions: New acetaminophen-codeine 300-30 mg tablet 1 tab PO Q6H PRN (Reason: cough) Qty: 10 0RF amoxicillin-pot clavulanate 875-125 mg tablet 875 mg PO Q12H Qty: 20 0RF No Action simvastatin 10 mg tablet 10 mg PO DAILY calcium carbonate [Tums] 200 mg calcium (500 mg) tablet,chewable 200 mg PO BID PRN (Reason: reflux) PreserVision AREDS 4,296 mcg-226 mg-90 mg capsule 1 cap PO DAILY citalopram 20 MG tablet 20 mg PO DAILY ibuprofen 200 mg Tablet 200 mg PO Q6H PRN (Reason: Pain) acetaminophen 325 mg Capsule 325 mg PO Q6H PRN (Reason: Pain) dexamethasone sodium phosphate 0.1 % drops 1 drp ophthalmic (eye) BID benzonatate 200 mg capsule 200 mg PO TID Primary Care Provider: Sebastian Velasco Referrals: Sebastian Velasco MD [Primary Care Provider] - 5-7 Days Print Language: Malagasy Disposition Disposition: Home, Self Care
--- NOTE | 2025-05-22 07:38 | RAD_ITS ---
PROCEDURE: CHEST PA AND LATERAL 05/22/2025 REASON FOR EXAM: COUGH TECHNIQUE: Procedure Code: RADCXR Modality: DX Procedure: CHEST PA AND LATERAL COMPARISON: March 11, 2022 FINDINGS: Hardware: None Heart: Normal Mediastinum: Mild subglottic narrowing. Lungs: Clear. No pneumothorax or pleural effusion. Bones: Degenerative changes are identified within the thoracic spine. RAD/Chest PA and Lateral IMPRESSION: Mild subglottic narrowing. Consider tracheobronchitis. Correlate with upper a irway symptoms. Reading Location: [id number]
[2025-05-22 07:58] LABS: Hematocrit 39.3 % (40-54); Hemoglobin 13.0 g/dL (13.0-16.5); Immature Granulocytes Count 0.040 X10^3/uL (0.0-0.0); Mean Corp Hgb Conc 33.1 g/dL (32-36); Mean Corpuscular Volume 91.8 fL (80-94); Mean Platelet Vol. 8.8 fl (6.2-12.0); NRBC Flagged by Analyzer 0 % (0-5); Platelet Count 241 K/mm3 (150-450); RBC Distribution Width CV 12.8 % (11.6-14.6); RBC Distribution Width SD 43.0 fl (35.1-43.9); Red Blood Count 4.28 M/mm3 (4.6-6.2); White Blood Count 8.6 K/mm3 (4.4-11.0)
--- OUTSIDE RECORDS SUMMARY | 2025-05-22 08:01 | XMS RPT_ITS | CCD ---
Author Organization [facility] Care Team Providers Care Aeronautical Engineering Officer Name Role Phone Krista ENRIQUEZ, Ada Ayala Primary Care Provider Dr. Sebastian Velasco Primary Care Provider Sona Ruiz Attending Provider Unavailable Dr. eSbastian Velasco Referring Provider Janette, Dr. Leonardo Bae Attending Provider [phone] Janette, Dr. Leonardo Bae Other Provider Krista ENRIQUEZ, Ada Ayala Primary Care Provider KRISTA ENRIQUEZ, AGNES Primary Care Physician [phone] STORM ENRIQUEZ, DR GORGE Wood Attending Ricky Oneal MD, [facility] Aide INMAN MD, DR GORGE Wood Attending Ricky Oneal MD, [facility] Aide INMAN MD, DR GORGE Wood Attending Ricky Oneal MD, [facility] Aide Velasco MD, Ada Ayala Primary Care Provider Sebastian Velasco Primary Care Unavailable Podlogar CARBON BRUSHER ASSEMBLERKacie Attending Unavailable Podlogar CARBON BRUSHER ASSEMBLERKacie Referring Unavailable Sebastian Velasco Primary Care Unavailable Podlogar CARBON BRUSHER ASSEMBLER, Kacie Attending Unavailable Gorge Inman Attending Unavailable Gorge Inman Referring Unavailable Sebastian Velasco Primary Care Unavailable Gorge Inman Consulting Unavailable Gorge Inman Referring Unavailable Sebastian Velasco Primary Care Unavailable Johny Ramires Attending Unavailable Podlogar FUNERAL 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.Kacie MONTES Unavailable [place] FUNERAL 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.Sendy MONTES Unavailable [place] FUNERAL 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.BOARD FILLERSendy Unavailable [place] FUNERAL 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.Sendy MONTES Unavailable ADA VELASCO Primary Care Unavailab JENSEN Mg Attending Unavailable ADA VELASCO Primary Care Unavailab ADA Oneal Referring UnavailADA Torres Primary Care UnavailADA Torres Attending Unavailab garcia PODKACIE ARNOLD Referring Unavailable HARVEY TESFAYE Attending Unavailable ADA VELASCO Primary Care Unavailab le Medications Current Medications Medication Drug Class(es) Dates Sig (Normalized) Sig (Original) acetaminophen 325 mg oral capsule (2 sources) Start: 12-05-2022 take 325 mg by mouth every six hours Acetaminophen Active 325 MG PO EVERY 6 HOURS December 05, 2022 12:00am amoxicillin 500 mg oral tablet (2 sources) Penicillin-class Antibacterial Start: 12-09-2022 take 2000 mg by mouth once Amoxicillin Active 2000 MG PO ONE TIME December 09, 2022 12:00am benzonatate 100 mg oral capsule (1 source) Non-narcotic Antitussive Start: 05-20-2025 End: 06-04-2025 take 1 capsule by mouth every eight hours as needed for cough benzonatate (TESSALON PERLE) 100 mg capsule Indications: Viral URI with cough Take 1 capsule by mouth every 8 hours as needed for cough for up to 15 days. 30 capsule 05/20/2025 06/04/2025 Active calcium carbonate 500 mg chewable tablet (2 sources) Start: 11-06-2022 take 1 tablet by mouth twice daily Calcium Carbonate (Tums) 200 mg calcium (500 mg) tablet,chewable Active 200 MG PO TWICE A DAY November 06, 2022 1:00am citalopram 20 mg oral tablet (20 sources) Serotonin Reuptake Inhibitor Start: 02-04-2023 End: 04-20-2025 take 1 tablet by mouth once daily citalopram (CELEXA) 20 mg tablet Take 1 tablet by mouth once daily. 90 tablet 04/21/2025 Active Start: 06-27-2016 End: 02-05-2022 take 20 mg by mouth once daily Citalopram Active 20 MG PO DAILY June 27, 2016 12:00am Comment on above: Take 1 tablet by wyatt th once daily. CPAP/BIPAP/OTHER (9 sources) Start: 08-03-20 End: 12-19-19 52 CPAP/BIPAP/OTHER autoCPAP 12-15 cmH2O DME DASCO 1 Each 08/03/2024 12/19/2051 Active ibuprofen 200 mg oral tablet (2 sources) Nonsteroidal Anti-inflammatory Drug Start: 12-06-19 take 200 mg by mouth every six hours Ibuprofen Active 200 MG PO EVERY 6 HOURS December 05, 2022 12:00am ketoconazole 20 mg/ml topical cream (1 source) Azole Antifungal Start: 12-13-19 End: 12-27-19 ketoconazole (NIZORAL) 2 % cream Apply 1 application to affected area once daily for 14 days. 30 g 3 12/12/2022 12/26/2022 Active Comment on above: Apply 1 application to affected area once daily for 14 days. prednisoLONE 1.2 mg/ml ophthalmic suspension (2 sources) Corticosteroid Start: 11-06-19 Prednisolone Acetate Active 1 DRP OPHTHALMIC ONCE November 06, 2022 1:00am simvastatin 10 mg oral tablet (20 sources) HMG-CoA Reductase Inhibitor Start: 04-07-20 End: 12-07-19 take 1 tablet by mouth once daily at bedtime simvastatin (ZOCOR) 10 mg tablet Take 1 tablet by mouth daily at bedtime. For cholesterols. 90 tablet 1 12/07/2024 Active Comment on above: Take 1 tablet by wyatt th daily at bedtime. For cholesterols. vit C/E/cuperic/zinc/lut ein (PRESERVISION LUTEIN ORAL) (6 sources) vit C/E/cuperic/zinc/lut ein (PRESERVISION LUTEIN ORAL) Take by mouth. Active Vitamins A,C,C-Iwfp-Bdmxxj (Preservision Areds) 4,296 mcg-226 mg-90 mg capsule (2 sources) Start: 11-06-19 take 1 capsule by mouth once daily Vitamins A,C,C-Gwev-Qcbflq (Preservision Areds) 4,296 mcg-226 mg-90 mg capsule Active 1 CAP PO DAILY November 06, 2022 1:00am Completed/Discontinued Medications Medication Drug Class(es) Dates Sig (Normalized) Sig (Original) cholecalciferol 0.025 mg oral tablet (20 sources) Vitamin D End: 08-02-2024 take 1 tablet by mouth once daily cholecalciferol (VITAMIN D) 1,000 unit tab tablet Take 1,000 Units by mouth once daily. 08/02/2024 Discontinued Comment on above: Take 1,000 Units by mouth once daily. lutein 10 mg oral tablet (20 sources) End: 12-26-2024 take 1 tablet by mouth once daily lutein 10 mg tab Take 10 mg by mouth once daily. 12/26/2024 Discontinued (Course of therapy completed) Comment on above: Take 10 mg by mouth once daily. nadolol 20 mg oral tablet (3 sources) beta-Adrenergic Jose Start: 06-27-2016 End: 11-06-2022 take 20 mg by mouth once daily Nadolol Discontinued 20 MG PO DAILY June 27, 2016 12:00am November 06, 2022 3:39pm omeprazole 20 mg delayed release oral capsule (3 sources) Proton Pump Inhibitor Start: 11-10-2017 End: 11-06-2022 take 20 mg by mouth once daily Omeprazole Discontinued 20 MG PO DAILY November 10, 2017 1:00am November 06, 2022 3:40pm Problems Active Problems Problem Classification Problem Date Documented Da te Episodic/Chronic Abdominal pain (1 source) Abdominal pain; Translations: [Unspecified abdominal pain] Episodic Anxiety disorders (20 sources) Mixed anxiety and depressive disorder; Translations: [Other specified anxiety disorders] 03-27-2021 Chronic Blindness and vision defects (2 sources) Reduced visual acuity; Translations: [Unspecified visual loss] Onset: 5 12-26-2024 Chronic Disorders of lipid metabolism (1 source) Mixed hyperlipidemia; Translations: [Mixed hyperlipidemia] Chronic Diverticulosis and diverticulitis (3 sources) Diverticulum of large intestine without hemorrhage; Translations: [Diverticulosis of large intestine without perforation or abscess without bleeding] 12-01-2017 Chronic E Codes: Fall (5 sources) Fall; Translations: [Unspecified fall, initial encounter] Episodic Esophageal disorders (20 sources) Gastroesophageal reflux disease; Translations: [Gastro-esophageal reflux disease without esophagitis] Onset: 8 10-28-2007 Chronic Hemorrhoids (3 sources) Hemorrhoids; Translations: [Unspecified hemorrhoids] 12-01-2017 Episodic Open wounds of extremities (4 sources) Laceration of finger; Translations: [Laceration without foreign body of unspecified finger without damage to nail, initial encounter] Episodic Other and unspecified benign neoplasm (20 sources) History of polyp of colon; Translations: [Personal history of colonic polyps] 08-25-2005 Episodic Other gastrointestinal disorders (3 sources) Dysphagia; Translations: [Dysphagia, unspecified] 12-01-2017 Episodic Other hereditary and degenerative nervous system conditions (1 source) Restless legs; Translations: [Restless legs syndrome] 08-03-2024 Chronic Other hereditary and degenerative nervous system conditions (1 source) Restless legs syndrome; Translations: [RLS (restless legs syndrome)] Onset: 4 Chronic Other lower respiratory disease (1 source) Snoring; Translations: [Snoring] 12-28-2023 Episodic Other lower respiratory disease (1 source) Difficulty breathing; Translations: [Other abnormalities of breathing] 12-28-2023 Episodic Other male genital disorders (20 sources) Male erectile dysfunction, unspecified; Translations: [Impotence of organic origin] Onset: 1 09-04-2011 Chronic Other nervous system disorders (20 sources) Carpal tunnel syndrome; Translations: [Carpal tunnel syndrome, unspecified upper limb] Onset: 8 10-28-2007 Chronic Other nervous system disorders (1 source) Carpal tunnel syndrome, bilateral upper limbs; Translations: [Carpal tunnel syndrome, bilateral upper limbs] Onset: 4 Chronic Other nervous system disorders (2 sources) Paresthesia of skin; Translations: [Paresthesia of skin] Onset: 4 Episodic Other nutritional; endocrine; and metabolic disorders (20 sources) Metabolic syndrome X; Translations: [Metabolic syndrome] Onset: 6 01-12-2006 Chronic Other nutritional; endocrine; and metabolic disorders (10 sources) Obesity; Translations: [Other obesity due to excess calories] 03-27-2021 Chronic Other nutritional; endocrine; and metabolic disorders (20 sources) Obesity caused by energy imbalance; Translations: [Other obesity due to excess calories] 03-27-2021 Chronic Other screening for suspected conditions (not mental disorders or infectious disease) (4 sources) Patient encounter status; Translations: [Encounter for screening for malignant neoplasm of colon] 10-09-2022 Episodic Other upper respiratory infections (2 sources) Viral upper respiratory tract infection; Translations: [Acute upper respiratory infection, unspecified] Onset: 5 05-20-2025 Episodic Residual codes; unclassified (1 source) Hypersomnia; Translations: [Hypersomnia, unspecified] 12-28-2023 Chronic Residual codes; unclassified (4 sources) Obstructive sleep apnea syndrome; Translations: [Obstructive sleep apnea (adult) (pediatric)] 01-26-2024 Chronic Residual codes; unclassified (2 sources) Obstructive sleep apnea (adult) (pediatric); Translations: [Obstructive sleep apnea (adult) (pediatric)] Onset: Chronic Residual codes; unclassified (20 sources) Family history of malignant neoplasm of gastrointestinal tract; Translations: [Family history of malignant neoplasm of digestive organs] 11-08-2007 Episodic Residual codes; unclassified (3 sources) Past history of procedure; Translations: [Other specified postprocedural states] 12-01-2017 Episodic Residual codes; unclassified (3 sources) History of colonoscopy; Translations: [Other specified postprocedural states] 12-01-2017 Episodic Residual codes; unclassified (3 sources) Family history of cancer of colon; Translations: [Family history of malignant neoplasm of digestive organs] 12-01-2017 Episodic Superficial injury; contusion (4 sources) Contusion of trunk; Translations: [Contusion of abdominal wall, initial encounter] Episodic Past or Other Problems Problem Classification Problem Date Documented Da te Episodic/Chronic Anxiety disorders (20 sources) Irritability and anger; Translations: [Irritability and anger] Onset: 03-20-2020 03-20-2020 Episodic Cardiac dysrhythmias (20 sources) Palpitations; Translations: [Palpitations] Onset: 09-04-2011 09-04-2011 Episodic Headache; including migraine (20 sources) Migraine; Translations: [Other forms of migraine] Resolved: 08-06-2016 08-06-2016 Chronic Other gastrointestinal disorders (20 sources) Diarrhea; Translations: [Diarrhea, unspecified] Resolved: 09-29-2014 12-01-2017 Episodic Other gastrointestinal disorders (20 sources) Constipation; Translations: [Constipation, unspecified] Resolved: 09-29-2014 12-01-2017 Episodic Residual codes; unclassified (20 sources) Reduced libido; Translations: [Decreased libido] Onset: 11-04-2017 11-04-2017 Episodic Results Test Name Value Interpretation Reference Range Facility [facility] 05-20-2025 CNOV Office Visit ([facility]) JEAN CARLOS NEVILLE ([id number]) 1950 M Date Time Provider Department 05/20/25 8:00 AM JENSEN MCNAMARA WONICOL During your visit today, we recorded the following information about you: Temperature Pulse Respiration Blood pressure 99.2 degrees 85/minute 20/minute 140/62 Weight 115.5 kg Jensen Mcnamara MD 05/20/2025 8:29 AM Signed [facility] Subjective Jean Carlos Neville is a 74 year old male. Patient presents with: URI: Cough, fatigue, runny nose x 1 week Feeling sick for 1 week. Began feeling ill on the way home from vacation in [place] He has had fatigue, cough, nasal congestion, rhinorrhea, sinus pressure. Coughing comes in spurts that last up to half an hour. He felt feverish a few days ago but has not been feeling feverish recently. Denies chest pain, shortness of breath, sore throat, nausea, vomiting, diarrhea. Primary concern is persistent cough which has not improved with [id number] NyQuil, DayQuil, or Delsym (combo meds with acetaminophen tend to give him a headache with extended use). Denies any history of asthma, COPD, smoking, or lung disease. URI Review of Systems Objective BP 140/62 Pulse 85 Temp 37.3 ?C (99.2 ?F) Resp 20 Wt 115.5 kg (254 lb 10.1 oz) SpO2 95% BMI 35.29 kg/m? Physical Exam Constitutional: General: He is not in acute distress. Appearance: He is not ill-appearing. HENT: Right Ear: Tympanic membrane and ear canal normal. Left Ear: Tympanic membrane and ear canal normal. Nose: Congestion present. Mouth/Throat: Pharynx: Posterior oropharyngeal erythema present. Eyes: Extraocular Movements: Extraocular movements intact. Conjunctiva/sclera: Conjunctivae normal. Pupils: Pupils are equal, round, and reactive to light. Cardiovascular: Rate and Rhythm: Normal rate and regular rhythm. Heart sounds: No murmur heard. Pulmonary: Effort: No respiratory distress. Breath sounds: No wheezing, rhonchi or rales. Musculoskeletal: Cervical back: Neck supple. Lymphadenopathy: Cervical: No cervical adenopathy. Neurological: Mental Status: He is alert. {ASSESSMENT/PLAN: 1. Viral URI with cough - ICD9: 465.9, ICD10: J06.9 - suspect viral URI. - Supportive care treatment with rest, cold medicine, and analgesia. Add - BENZONATATE 100 MG CAPSULE Follow up with worsening cough, worsening shortness of breath, increasing chest pain, or late onset fever. Jensen Mcnamara MD History and Record Review Systemic symptoms present included: fever Differential Diagnoses - viral URI is more likely for the following reason(s): suggested by HANDP - pneumonia is less likely for the following reason(s): normal lung exam, resolution of fever Procedures Allergies As of Date: 05/20/2025 (No Known Allergies) Date Reviewed: 05/20/2025 Reviewed by: Martha Sarabia MA - Fully Assessed Reason for Visit: URI [115] Cmt: Cough, fatigue, runny nose x 1 week Primary Visit Diagnosis:Viral URI with cough [J06.9] Order(s):benzonatate (TESSALON PERLE) 100 mg capsuleTake 1 capsule by mouth every 8 hours as needed for cough for up to 15 days.Disp: 30 capsuleRfl: 0 Prescriptions as of 05/20/2025 - benzonatate (TESSALON PERLE) 100 mg capsule Take 1 capsule by mouth every 8 hours as needed for cough for up to 15 days. - citalopram (CELEXA) 20 mg tablet Take 1 tablet by mouth once daily. - vit C/E/cuperic/zinc/lute in (PRESERVISION LUTEIN ORAL) Take by mouth. - simvastatin (ZOCOR) 10 mg tablet Take 1 tablet by mouth daily at bedtime. For cholesterols. - CPAP/BIPAP/OTHER autoCPAP 12-15 cmH2O DME DASCO Problem List As Of Date 05/20/2025 Noted Resolved Other forms of migraine [346.8] 08/06/2016 PERS HX COLONIC POLYPS [Z86.0100] Diarrhea [R19.7] 09/29/2014 DYSMETABOLIC SYNDROME X [E88.810] 01/12/2006 CARPAL TUNNEL SYNDROME [G56.00] 10/28/2007 ESOPHAGEAL REFLUX [K21.9] 10/28/2007 FAMILY HX GI MALIGNANCY [Z80.0] Unspecified constipation [K59.00] 09/29/2014 Palpitations [R00.2] 09/04/2011 ED (erectile dysfunction) [N52.9] 09/04/2011 Decreased libido [R68.82] 11/04/2017 Irritability and anger [R45.4] 03/20/2020 Class 1 obesity due to excess calories without * Anxiety with depression [F41.8] Prescriptions ordered this encounter Disp Refills Start End BENZONATATE 100 MG CAPSULE 30 c* 0 05/20/2025 06/04/2025 Route: PO Sig: Take 1 capsule by mouth every 8 hours as needed for cough for up to 15 days. Level of Service: OFFICE/OUTPATIENT ESTABLISHED MOD MDM 30 MIN [58847] Encounter Status:Closed by JENSEN MCNAMARA on 05/20/25 Normal [facility] Lipid 1996 panelon 5 Cholesterol [Mass/Vol] 121 mg/dL NINF - 200 mg/dL [facility] Comment on above: <200 mg/dL, Desirabl e 200-239 mg/dL, Borderline high >239 mg/dL, High Cholesterol in HDL [Mass/Vol] 38 mg/dL Low 39 - PINF mg/dL [facility] Comment on above: 40-59 mg/dL, Accepta ble >59 mg/dL, High: Negative risk factor for coronary heart disease <40 mg/dL, Low: Positive risk factor for coronary heart disease Cholesterol in LDL [Mass/Vol] 63 mg/dL NINF - 100 mg/dL [facility] Comment on above: <100 mg/dL, Optimal 100-129 mg/dL, Near optimal/above optimal 130-159 mg/dL, Borderline high 160-189 mg/dL, High >189 mg/dL, Very high Secondary prevention optimal LDL Cholesterol levels are recommended to be < 70 mg/dL Cholesterol in LDL/Cholesterol in HDL [Mass ratio] 1.66 {ratio} NINF - 2.54 [facility] Comment on above: Reference: 1. National Cholesterol Education Program ATP III Guideline At-A-Glance Quick Desk Reference: National Heart, Lung, and Blood [place]. National Institutes of Health. 2001: NIH Publication No. 01-3305. 2. An International Atherosclerosis Society position paper: global recommendations for the management of dyslipidemia: executive summary, Atherosclerosis. 2014: 232(2):410-413. Cholesterol in VLDL [Mass/Vol] 20 mg/dL NINF - 30 mg/dL [facility] Cholesterol non HDL [Mass/Vol] 83 mg/dL NINF - 130 mg/dL [facility] Comment on above: <130 mg/dL, Optimal 130-159 mg/dL, Near optimal/above optimal 160-189 mg/dL, Borderline high 190-219 mg/dL, High >219 mg/dL, Very high Secondary prevention optimal non HDL Cholesterol levels are recommended to be <100 mg/dL Cholesterol.total/Chol esterol in HDL [Mass ratio] 3.18 {ratio} NINF - 5.10 [facility] Fasting Time [facility] Comment on above: Unknown Interpretation and review of laboratory results Abnormal [facility] Triglyceride [Mass/Vol] 102 mg/dL NINF - 150 mg/dL [facility] Comment on above: <150 mg/dL, Normal 150-199 mg/dL, Borderline high 200-499 mg/dL, High >499 mg/dL, Very high [facility] CBC W Auto Differential pane l (Bld)on 12-28-2024 Basophils (Bld) [#/Vol] 0.06 10*3/uL Normal <0.11 [facility] Comment on above: Order Comment: Speci men Type: BLOOD SPECIMEN Ordering Facility: [facility] Address: [address] [place] [address] Performed By: #### 5 7021-8 #### [facility] CLIA [id number] [address] [place] [address] [place] Basophils/100 WBC (Bld) 1.0 % Normal [facility] Comment on above: Order Comment: Speci men Type: BLOOD SPECIMEN Ordering Facility: [facility] Address: [address] [place] [address] Performed By: #### 5 7021-8 #### [facility] CLIA [id number] [address] [place] [address] [place] Differential cell count method Nom (Bld) Auto Normal [facility] Comment on above: Order Comment: Speci men Type: BLOOD SPECIMEN Ordering Facility: [facility] Address: [address] [place] [address] Performed By: #### 5 7021-8 #### [facility] CLIA [id number] [address] [place] [address] [place] Eosinophils (Bld) [#/Vol] 0.11 10*3/uL Normal <0.46 [facility] Comment on above: Order Comment: Speci men Type: BLOOD SPECIMEN Ordering Facility: [facility] Address: [address] [place] [address] Performed By: #### 5 7021-8 #### [facility] CLIA [id number] [address] [place] [address] [place] Eosinophils/100 WBC (Bld) 1.8 % Normal [facility] Comment on above: Order Comment: Speci men Type: BLOOD SPECIMEN Ordering Facility: [facility] Address: [address] [place] [address] Performed By: #### 5 7021-8 #### [facility] CLIA [id number] [address] [place] [address] [place] Erythrocyte distribution width (RBC) [Ratio] 12.9 % Normal 11.5-15.0 [facility] Comment on above: Order Comment: Speci men Type: BLOOD SPECIMEN Ordering Facility: [facility] Address: [address] [place] [address] Performed By: #### 5 7021-8 #### [facility] CLIA [id number] [address] [place] [address] [place] Hematocrit (Bld) [Volume fraction] 44.1 % Normal 39.0-51.0 [facility] Comment on above: Order Comment: Speci men Type: BLOOD SPECIMEN Ordering Facility: [facility] Address: [address] [place] [address] Performed By: #### 5 7021-8 #### [facility] CLIA [id number] [address] [place] [address] [place] Hemoglobin (Bld) [Mass/Vol] 14.6 g/dL Normal 13.0-17.0 [facility] Comment on above: Order Comment: Speci men Type: BLOOD SPECIMEN Ordering Facility: [facility] Address: [address] [place] [address] Performed By: #### 5 7021-8 #### [facility] CLIA [id number] [address] [place] [address] [place] Immature granulocytes (Bld) [#/Vol] 0.03 10*3/uL Normal <0.10 [facility] Comment on above: Order Comment: Speci men Type: BLOOD SPECIMEN Ordering Facility: [facility] Address: [address] [place] [address] Performed By: #### 5 7021-8 #### [facility] CLIA [id number] [address] [place] [address] [place] Immature granulocytes/100 WBC (Bld) 0.5 % Normal [facility] Comment on above: Order Comment: Speci men Type: BLOOD SPECIMEN Ordering Facility: [facility] Address: [address] [place] [address] Performed By: #### 5 7021-8 #### [facility] CLIA [id number] [address] [place] [address] [place] Lymphocytes (Bld) [#/Vol] 1.36 10*3/uL Normal 1.00-4.00 [facility] Comment on above: Order Comment: Speci men Type: BLOOD SPECIMEN Ordering Facility: [facility] Address: [address] [place] [address] Performed By: #### 5 7021-8 #### [facility] CLIA [id number] [address] [place] [address] [place] Lymphocytes/100 WBC (Bld) 22.6 % Normal [facility] Comment on above: Order Comment: Speci men Type: BLOOD SPECIMEN Ordering Facility: [facility] Address: [address] [place] [address] Performed By: #### 5 7021-8 #### [facility] CLIA [id number] [address] [place] [address] [place] MCH (RBC) [Entitic mass] 31.0 pg Normal 26.0-34.0 [facility] Comment on above: Order Comment: Speci men Type: BLOOD SPECIMEN Ordering Facility: [facility] Address: [address] [place] [address] Performed By: #### 5 7021-8 #### [facility] CLIA [id number] [address] [place] [address] [place] MCHC (RBC) [Mass/Vol] 33.1 g/dL Normal 30.5-36.0 [facility] Comment on above: Order Comment: Speci men Type: BLOOD SPECIMEN Ordering Facility: [facility] Address: [address] [place] [address] Performed By: #### 5 7021-8 #### [facility] CLIA [id number] [address] [place] [address] [place] MCV (RBC) [Entitic vol] 93.6 fL Normal 80.0-100.0 [facility] Comment on above: Order Comment: Speci men Type: BLOOD SPECIMEN Ordering Facility: [facility] Address: [address] [place] [address] Performed By: #### 5 7021-8 #### [facility] CLIA [id number] [address] [place] [address] [place] Monocytes (Bld) [#/Vol] 0.56 10*3/uL Normal <0.87 [facility] Comment on above: Order Comment: Speci men Type: BLOOD SPECIMEN Ordering Facility: [facility] Address: [address] [place] [address] Performed By: #### 5 7021-8 #### [facility] CLIA [id number] [address] [place] [address] [place] Monocytes/100 WBC (Bld) 9.3 % Normal [facility] Comment on above: Order Comment: Speci men Type: BLOOD SPECIMEN Ordering Facility: [facility] Address: [address] [place] [address] Performed By: #### 5 7021-8 #### [facility] CLIA [id number] [address] [place] [address] [place] Neutrophils (Bld) [#/Vol] 3.89 10*3/uL Normal 1.45-7.50 [facility] Comment on above: Order Comment: Speci men Type: BLOOD SPECIMEN Ordering Facility: [facility] Address: [address] [place] [address] Performed By: #### 5 7021-8 #### [facility] CLIA [id number] [address] [place] [address] [place] Neutrophils/100 WBC (Bld) 64.8 % Normal [facility] Comment on above: Order Comment: Speci men Type: BLOOD SPECIMEN Ordering Facility: [facility] Address: [address] [place] [address] Performed By: #### 5 7021-8 #### [facility] CLIA [id number] [address] [place] [address] [place] Nucleated RBC (Bld) [#/Vol] 10*3/uL Normal <0.01 [facility] Comment on above: Order Comment: Speci men Type: BLOOD SPECIMEN Ordering Facility: [facility] Address: [address] [place] [address] Performed By: #### 5 7021-8 #### [facility] CLIA [id number] [address] [place] [address] [place] Nucleated RBC/100 WBC (Bld) [Ratio] 0.0 /100 WBC Normal [facility] Comment on above: Order Comment: Speci men Type: BLOOD SPECIMEN Ordering Facility: [facility] Address: [address] [place] [address] Performed By: #### 5 7021-8 #### [facility] CLIA [id number] [address] [place] [address] [place] Platelet mean volume (Bld) [Entitic vol] 9.6 fL Normal 9.0-12.7 [facility] Comment on above: Order Comment: Speci men Type: BLOOD SPECIMEN Ordering Facility: [facility] Address: [address] [place] [address] Performed By: #### 5 7021-8 #### [facility] CLIA [id number] [address] [place] [address] [place] Platelets (Bld) [#/Vol] 251 10*3/uL Normal 150-400 [facility] Comment on above: Order Comment: Speci men Type: BLOOD SPECIMEN Ordering Facility: [facility] Address: [address] [place] [address] Performed By: #### 5 7021-8 #### [facility] CLIA [id number] [address] [place] [address] [place] RBC (Bld) [#/Vol] 4.71 10*6/uL Normal 4.20-6.00 [facility] Comment on above: Order Comment: Speci men Type: BLOOD SPECIMEN Ordering Facility: [facility] Address: [address] [place] [address] Performed By: #### 5 7021-8 #### [facility] CLIA [id number] [address] [place], [place] [address] [address] [place] WBC (Bld) [#/Vol] 6.01 10*3/uL Normal 3.70-11.00 [facility] Comment on above: Order Comment: Speci men Type: BLOOD SPECIMEN Ordering Facility: [facility] Address: [address] [place] [address] Performed By: #### 5 7021-8 #### [facility] CLIA [id number] [address] [place] [address] [place] CNPNon 12-28-2024 CNPN Telephone (FAMWS) JEAN CARLOS NEVILLE ([id number]) 1950 M Date Time Provider Department 12/28/24 [facility] During your visit today, we recorded the following information about you: Kianna Chicas RN 12/28/2024 3:28 PM Signed Patient's calls and states that patient had labs drawn this morning. Lipid panel was not drawn because expected date was listed as 03/27/2025. Patient asking if this can be added on to lab drawn that was done this morning and if provider can fix order. also asking if diagnosis for lab can be changed to hyperlipoidemia so that it will be covered through medicare? Patient has been on simvastatin. Please review and advise, CHUCK Marlow Christopher B, MD 12/29/2024 8:40 AM Addendum New order placed. Can lab be added to drawn blood work or would he have to come back? Ordered under medicare wellness which is what they were in office for that day. Kianna Chicas RN 12/29/2024 9:55 AM Signed Patient's calls asking about the status of this request. Notified that order was placed. Called to Lab and spoke with Vikash. Adding the lipid panel to labs that were done. Kianna Chicas RN Allergies As of Date: 12/28/2024 (No Known Allergies) Date Reviewed: 12/26/2024 Reviewed by: Ada Velasco MD - Fully Assessed Reason for Visit: Patient Question [5477] Primary Visit Diagnosis:Medicare annual wellness visit, subsequent [Z00.00] Order(s):LIPID PANEL, FASTING [SQLIPB] Order #: [id number] FUTURE Prescriptions as of 12/29/2024 - vit C/E/cuperic/zinc/lute in (PRESERVISION LUTEIN ORAL) Take by mouth. - simvastatin (ZOCOR) 10 mg tablet Take 1 tablet by mouth daily at bedtime. For cholesterols. - citalopram (CELEXA) 20 mg tablet Take 1 tablet by mouth once daily. - CPAP/BIPAP/OTHER autoCPAP 12-15 cmH2O DME DASCO Problem List As Of Date 12/28/2024 Noted Resolved Other forms of migraine [346.8] 08/06/2016 PERS HX COLONIC POLYPS [Z86.0100] Diarrhea [R19.7] 09/29/2014 DYSMETABOLIC SYNDROME X [E88.810] 01/12/2006 CARPAL TUNNEL SYNDROME [G56.00] 10/28/2007 ESOPHAGEAL REFLUX [K21.9] 10/28/2007 FAMILY HX GI MALIGNANCY [Z80.0] Unspecified constipation [K59.00] 09/29/2014 Palpitations [R00.2] 09/04/2011 ED (erectile dysfunction) [N52.9] 09/04/2011 Decreased libido [R68.82] 11/04/2017 Irritability and anger [R45.4] 03/20/2020 Class 1 obesity due to excess calories without * Anxiety with depression [F41.8] Encounter Status:Closed by KIANNA CHICAS on 12/29/24 Normal [facility] Comprehensive metabolic 2000 panelon 12-28-2024 Albumin [Mass/Vol] 4.3 g/dL Normal 3.9-4.9 [facility] Comment on above: Order Comment: Speci men Type: BLOOD SPECIMEN Ordering Facility: [facility] Address: [address] [place] [address] Performed By: #### 2 4323-8, 3016-3, 53376-3 #### [facility] CLIA [id number] [address] [place] [address] [place] ALP [Catalytic activity/Vol] 69 U/L Normal 38-113 [facility] Comment on above: Order Comment: Speci men Type: BLOOD SPECIMEN Ordering Facility: [facility] Address: [address] [place] [address] Performed By: #### 2 4323-8, 6-3, 30724-8 #### [facility] CLIA [id number] [address] [place] [address] [place] ALT [Catalytic activity/Vol] 14 U/L Normal 10-54 [facility] Comment on above: Order Comment: Speci men Type: BLOOD SPECIMEN Ordering Facility: [facility] Address: [address] [place] [address] Performed By: #### 2 4323-8, 6-3, 49001-7 #### [facility] CLIA [id number] [address] [place] [address] [place] Anion gap [Moles/Vol] 10 mmol/L Normal 8-15 [facility] Comment on above: Order Comment: Speci men Type: BLOOD SPECIMEN Ordering Facility: [facility] Address: [address] [place] [address] Performed By: #### 2 4323-8, 6-3, 69287-3 #### [facility] CLIA [id number] [address] [place] [address] [place] AST [Catalytic activity/Vol] 15 U/L Normal 14-40 [facility] Comment on above: Order Comment: Speci men Type: BLOOD SPECIMEN Ordering Facility: [facility] Address: [address] [place] [address] Performed By: #### 2 4323-8, 3015-3, 24127-8 #### [facility] CLIA [id number] [address] [place] [address] [place] Bilirubin [Mass/Vol] 0.6 mg/dL Normal 0.2-1.3 [facility] Comment on above: Order Comment: Speci men Type: BLOOD SPECIMEN Ordering Facility: [facility] Address: [address] [place] [address] Performed By: #### 2 4323-8, 3015-3, 87160-3 #### [facility] CLIA [id number] [address] [place] [address] [place] Calcium [Mass/Vol] 9.5 mg/dL Normal 8.5-10.2 [facility] Comment on above: Order Comment: Speci men Type: BLOOD SPECIMEN Ordering Facility: [facility] Address: [address] [place] [address] Performed By: #### 2 4323-8, 3015-3, 76745-3 #### [facility] CLIA [id number] [address] [place] [address] [place] Chloride [Moles/Vol] 105 mmol/L Normal 98-107 [facility] Comment on above: Order Comment: Speci men Type: BLOOD SPECIMEN Ordering Facility: [facility] Address: [address] [place] [address] Performed By: #### 2 4323-8, 3015-3, 38878-1 #### [facility] CLIA [id number] [address] [place], [place] [address] [place] CO2 [Moles/Vol] 27 mmol/L Normal 22-30 [facility] Comment on above: Order Comment: Speci men Type: BLOOD SPECIMEN Ordering Facility: [facility] Address: [address] [place], [place] [address] Performed By: #### 2 4323-8, 3015-3, 46117-3 #### [facility] CLIA [id number] [address] [place], [place] [address] [place] Creatinine [Mass/Vol] 0.75 mg/dL Normal 0.73-1.22 [facility] Comment on above: Order Comment: Patrizia chicas Type: BLOOD SPECIMEN Ordering Facility: [facility] Address: [address] [place] [address] Performed By: #### 2 4323-8, 3016-3, 00208-7 #### [facility] CLIA [id number] [address] [place] [address] [place] Creatinine and Glomerular filtration rate.predicted panel (S/P/Bld) 96 mL/min/1.73m??? Normal >=60 [facility] Comment on above: Order Comment: Patrizia chicas Type: BLOOD SPECIMEN Ordering Facility: [facility] Address: [address] [place] [address] Result Comment: Emily mated Glomerular Filtration Rate (eGFR) is calculated using the 2020 CKD-EPI creatinine equation. This equation utilizes serum creatinine, sex, and age as parameters. The creatinine assay has traceable calibration to isotope dilution-mass spectrometry. Refer to KDIGO guidelines for clinical interpretation. In patients with unstable renal function, e.g. those with acute kidney injury, the eGFR may not accurately reflect actual GFR. Performed By: #### 2 4323-8, 6-3, 46615-4 #### [facility] CLIA [id number] [address] [place] [address] [place] Glucose [Mass/Vol] 103 mg/dL High 74-99 [facility] Comment on above: Order Comment: Patrizia chicas Type: BLOOD SPECIMEN Ordering Facility: [facility] Address: [address] [place] [address] Result Comment: The [place] Diabetes Association (ADA) provides guidance for cutoff values for fasting glucose and random glucose. The ADA defines fasting as no caloric intake for at least 8 hours. Fasting plasma glucose results between 100 to 125 mg/dL indicate increased risk for diabetes (prediabetes). Fasting plasma glucose results greater than or equal to 126 mg/dL meet the criteria for diagnosis of diabetes. In the absence of unequivocal hyperglycemia, results should be confirmed by repeat testing. In a patient with classic symptoms of hyperglycemia or hyperglycemic crisis, random plasma glucose results greater than or equal to 200 mg/dL meet the criteria for diagnosis of diabetes. Reference: Standards of Medical Care in Diabetes 2016, [place] Diabetes Association. Diabetes Care. 2016.39(Suppl 1). Performed By: #### 2 4323-8, 6-3, 04028-6 #### [facility] CLIA [id number] [address] [place] [address] [place] Potassium [Moles/Vol] 4.5 mmol/L Normal 3.7-5.1 [facility] Comment on above: Order Comment: Speci men Type: BLOOD SPECIMEN Ordering Facility: [facility] Address: [address] [place] [address] Performed By: #### 2 4323-8, 3, 39659-9 #### [facility] CLIA [id number] [address] [place] [address] [place] Protein [Mass/Vol] 6.9 g/dL Normal 6.3-8.0 [facility] Comment on above: Order Comment: Speci men Type: BLOOD SPECIMEN Ordering Facility: [facility] Address: [address] [place] [address] Performed By: #### 2 4323-8, 3, 59599-8 #### [facility] CLIA [id number] [address] [place] [address] [place] Sodium [Moles/Vol] 142 mmol/L Normal 136-144 [facility] Comment on above: Order Comment: Speci men Type: BLOOD SPECIMEN Ordering Facility: [facility] Address: [address] [place] [address] Performed By: #### 2 4323-8, 3015-3, 77767-7 #### [facility] CLIA [id number] [address] [place] [address] [place] Urea nitrogen [Mass/Vol] 13 mg/dL Normal 9-24 [facility] Comment on above: Order Comment: Patrizia chicas Type: BLOOD SPECIMEN Ordering Facility: [facility] Address: [address] [place] [address] Performed By: #### 2 4323-8, 3016-3, 96218-5 #### [facility] CLIA [id number] [address] [place] [address] [place] HbA1c (Bld)on 12-28-2024 Average glucose Estimated from glycated hemoglobin (Bld) [Mass/Vol] 97 mg/dL Normal [facility] Comment on above: Order Comment: Patrizia chicas Type: BLOOD SPECIMEN Ordering Facility: [facility] Address: [address] [place] [address] Result Comment: eAG: (Estimated average glucose) is a calculated value from HgbA1c and is national sales representative of the average blood glucose level in the last 2-3 month period. Performed By: #### 5 5454-3 #### [facility] CLIA [id number] [address] [place] [address] [place] HbA1c (Bld) [Mass fraction] 5.0 % Normal 4.3-5.6 [facility] Comment on above: Order Comment: Patrizia chicas Type: BLOOD SPECIMEN Ordering Facility: [facility] Address: [address] [place] [address] Result Comment: [place] Diabetes Association guidelines indicate that patients with HgbA1c in the range 5.7-6.4% are at increased risk for development of diabetes, and intervention by lifestyle modification may be beneficial. HgbA1c greater or equal to 6.5% is considered diagnostic of diabetes. Performed By: #### 5 5454-3 #### [facility] CLIA [id number] [address] [place] [address] [place] Lipid 1996 panelon 5 Cholesterol [Mass/Vol] 121 mg/dL Normal <200 [facility] Comment on above: Order Comment: Speci men Type: BLOOD SPECIMEN Ordering Facility: [facility] Address: [address] [place] [address] Result Comment: <200 mg/dL, Desirable 200-239 mg/dL, Borderline high >239 mg/dL, High Performed By: #### 2 4323-8, 3016-3, 87435-5 #### [facility] CLIA [id number] [address] [place], [place] [address] [place] Cholesterol in HDL [Mass/Vol] 38 mg/dL Low >39 [facility] Comment on above: Order Comment: Hajai men Type: BLOOD SPECIMEN Ordering Facility: [facility] Address: [address] [place] [address] Result Comment: 40-5 9 mg/dL, Acceptable >59 mg/dL, High: Negative risk factor for coronary heart disease <40 mg/dL, Low: Positive risk factor for coronary heart disease Performed By: #### 2 4323-8, 3016-3, 80743-3 #### [facility] CLIA [id number] [address] [place] [address] [place] Cholesterol in LDL [Mass/Vol] 63 mg/dL Normal <100 [facility] Comment on above: Order Comment: Hajai men Type: BLOOD SPECIMEN Ordering Facility: [facility] Address: [address] [place] [address] Result Comment: <100 mg/dL, Optimal 100-129 mg/dL, Near optimal/above optimal 130-159 mg/dL, Borderline high 160-189 mg/dL, High >189 mg/dL, Very high Secondary prevention optimal LDL Cholesterol levels are recommended to be < 70 mg/dL Performed By: #### 2 4323-8, 3016-3, 72134-5 #### [facility] CLIA [id number] [address] [place] [address] [place] Cholesterol in LDL/Cholesterol in HDL [Mass ratio] 1.66 {ratio} Normal <2.54 [facility] Comment on above: Order Comment: Speci men Type: BLOOD SPECIMEN Ordering Facility: [facility] Address: [address] [place] [address] Result Comment: Mayo fox: 1. National Cholesterol Education Program ATP III Guideline At-A-Glance Quick Desk Reference: National Heart, Lung, and Blood [place]. National Institutes of Health. 2001: NIH Publication No. 01-3305. 2. An International Atherosclerosis Society position paper: global recommendations for the management of dyslipidemia: executive summary, Atherosclerosis. 2014: 232(2):410-413. Performed By: #### 2 4323-8, 3016-3, 59743-7 #### [facility] CLIA [id number] [address] [place] [address] [place] Cholesterol in VLDL [Mass/Vol] 20 mg/dL Normal <30 [facility] Comment on above: Order Comment: Patrizia chicas Type: BLOOD SPECIMEN Ordering Facility: [facility] Address: [address] [place] [address] Performed By: #### 2 4323-8, 6-3, 62583-8 #### [facility] CLIA [id number] [address] [place] [address] [place] Cholesterol non HDL [Mass/Vol] 83 mg/dL Normal <130 [facility] Comment on above: Order Comment: Patrizia chicas Type: BLOOD SPECIMEN Ordering Facility: [facility] Address: [address] [place] [address] Result Comment: <130 mg/dL, Optimal 130-159 mg/dL, Near optimal/above optimal 160-189 mg/dL, Borderline high 190-219 mg/dL, High >219 mg/dL, Very high Secondary prevention optimal non HDL Cholesterol levels are recommended to be <100 mg/dL Performed By: #### 2 4323-8, 3016-3, 94291-0 #### [facility] CLIA [id number] [address] [place], [place] [address] [place] Cholesterol.total/Chol esterol in HDL [Mass ratio] 3.18 {ratio} Normal <5.10 [facility] Comment on above: Order Comment: Speci men Type: BLOOD SPECIMEN Ordering Facility: [facility] Address: [address] [place] [address] Performed By: #### 2 4323-8, 3015-3, 32565-7 #### [facility] CLIA [id number] [address] [place] [address] [place] FASTING TIME Normal [facility] Comment on above: Order Comment: Speci men Type: BLOOD SPECIMEN Ordering Facility: [facility] Address: [address] [place] [address] Result Comment: Unkn own Performed By: #### 2 4323-8, 3, 47736-9 #### [facility] CLIA [id number] [address] [place] [address] [place] Triglyceride [Mass/Vol] 102 mg/dL Normal <150 [facility] Comment on above: Order Comment: Speci men Type: BLOOD SPECIMEN Ordering Facility: [facility] Address: [address] [place] [address] Result Comment: <150 mg/dL, Normal 150-199 mg/dL, Borderline high 200-499 mg/dL, High >499 mg/dL, Very high Performed By: #### 2 4323-8, 3, 18909-2 #### [facility] CLIA [id number] [address] [place] [address] [place] TSH SerPl-aCncon 12-28-2024 TSH Qn 3.010 m[IU]/L Normal 0.270-4.200 [facility] Comment on above: Order Comment: Speci men Type: BLOOD SPECIMEN Ordering Facility: [facility] Address: [address] [place] [address] Performed By: #### 2 4323-8, 3, 62395-3 #### [facility] CLIA [id number] [address] [place], [place] [id number] [place] CNOVon 12-26-2024 CNOV Office Visit (FAMPWS ) JEAN CARLOS NEVILLE ([id number]) 1950 M Date Time Provider Department 12/26/24 8:00 AM ADA VELASCO FAMPWS During your visit today, we recorded the following information about you: Pulse Respiration Blood pressure Weight 66/minute 16/minute 130/64 121.6 kg Ada Velasco MD 12/26/2024 9:05 AM Signed Jean Carlos Neville is a 74 year old male here for a Medicare wellness visit. Patient has been in good health without recent hospitalizations, ER visits, no falls. No concerns today. Accompanied today by . Up to date on colon cancer screening with colonoscopy in 2022. Repeat in 2027. Due for repeat labs. Refusing COVID booster today. Medicare Health Risk Assessment General Health Excellent Exercise: Minutes/Day 0 min Exercise: Days/Week 0 days Alcohol: Daily Use Monthly or less Alcohol: Drinks/Day 1 or 2 Alcohol: 6 or more drinks Never Feel off balance No Concerns: Teeth/Dentures No Concerns: Sexual function No Troubled by feelings None of the above Frequency: Eating healthy diet Several days ADLs requiring help None of the above Safety precautions in home/vehicle No (Throw rugs) Smoke, vape, chews tobacco No Difficulty hearing No Difficulty seeing No Current Providers Specialists: I have reviewed specialist-related care of the patient in the medical record. Current care team: Patient Care Team: Ada Velasco MD as PCP - General (Family Medicine) PodlogKacie vazquez APRN.CNP as [employer] (Family Medicine) Sendy Hernandez APRN.CNP as [employer] (Family Medicine) Outside specialists seen: Dr. Kathleen, Dr. Miller, Dr. Lagos-Mirna Medical/Family history review Reviewed and updated problem list, medical/surgical/fami ly/social history, medications, and allergies. Opioid use review Opioid Medications (last 90 days) No data to display Anxiety/Depression screening (Lower risk for depression) (Lower risk for anxiety) Recommendation: no further intervention at this time Cognitive screening Mini Cog Score: 5 Cognitive screening reviewed and No further action needed (score 3-5). Functional Observation Was the patient's Timed Up AND Go test unsteady or >= 12 seconds? No Advance Care Planning Patient did not wish or was not able to name a surrogate decision maker or provide an advance care plan FULL CODE Measurements BP 130/64 Pulse 66 Resp 16 Wt 121.6 kg (268 lb) SpO2 98% BMI 37.15 kg/m? Vision Screening: Right: 20/100 Left: 20/ 40 Both: 20/40 Uncorrected Assessment/Plan ASSESSMENT/PLAN: 1. Medicare annual wellness visit, subsequent - ICD9: V70.0, ICD10: Z00.00 (primary diagnosis) - Counseled on healthy diet and regular exercise - Fall avoidance information provided - Personalized prevention plan provided - COMPLETE BLOOD COUNT AND DIFFERENTIAL - COMPREHENSIVE METABOLIC PANEL - HEMOGLOBIN A1C - THYROID STIMULATING HORMONE - LIPID PANEL, FASTING 2. Decreased visual acuity - ICD9: 369.9, ICD10: H54.7 Noted on exam today. Did not have his glasses with him. F/u with optho for vision concerns. MD Rosa Gerardo Lori, LPN 12/26/2024 8:05 AM Signed Screening schedule The following prevention plan is recommended: Colorectal Cancer Screening due on 12/10/2022 Advance Directive Discussion Never done Covid-19 Vaccine() due on 12/12/2024 WHAT YOU CAN DO TO PREVENT FALLS Many falls can be prevented. By making some changes, you can lower your chances of falling. Four things YOU can do to prevent falls for you* and your caregiver 1. Begin a regular exercise program Exercise is one of the most important ways to lower your chances of falling. It makes you stronger and helps you feel better. Exercises that improve balance and coordination (like Louie Chi) are the most helpful. Lack of exercise leads to weakness and increases your chances of falling. Ask your doctor or health care provider about the best type of exercise program for you. 2. Have your health care provider review your medicines Have your doctor or pharmacist review all the medicines you take, even moex-mke-epkuiul medicines. As you get older, the way medicines work in your body can change. Some medicines, or combinations of medicines, can make you sleepy or dizzy and can cause you to fall. 3. Have your vision checked Have your eyes checked by an eye doctor at least once a year. You may be wearing the wrong glasses or have a condition like glaucoma or cataracts that limits your vision. Poor vision can increase your chances of falling. 4. Make your home safer About half of all falls happen at home. To make your home safer: Remove things you can trip over (like papers, books, clothes, and shoes) from stairs and places where you walk. Remove small throw rugs or use double-sided tape to keep th (more content not included)... Normal [facility] CNOVon 08-03-2024 CNOV Office Visit (TONYAWST ) JEAN CARLOS NEVILLE ([id number]) 1950 M Date Time Provider Department 08/03/24 9:00 AM HARVEY TESFAYE During your visit today, we recorded the following information about you: Pulse Respiration Blood pressure Weight 71/minute 16/minute 130/69 123.2 kg Harvey Tesfaye APRN.CNP 08/03/2024 9:59 AM Signed [facility] New Patient Evaluation PATIENT NAME: Jean Carlos Neville DATE OF SERVICE: August 02, 2024 CONSULTING PROVIDER: Kacie Rodriguez [id number] [facility] [id number] REASON FOR CONSULT: Kacie Aragonlogtaylor sends the patient for an opinion about ALONSO. My findings and recommendations will be transmitted electronically via shared medical record to the consulting provider. HPI: Jean Carlos Neville is a 73 year old male. Accompanied by his . Sleep-related history: diagnosed with severe ALONSO in 12/2023. He awoke one morning choking, unable to breathe, that led to the diagnosis of ALONSO. He committed to using PAP therapy, he has adjusted well to it. Benefits to PAP: feels refreshed in the morning, fewer naps. Snoring is mostly abolished. He and his note increased mask leaks over time. Wakes him when his jaw drops and he gets leak from bottom of mask but otherwise leaks done bother him. hears leaks when he's on his back typically. Has hybrid FFM, Mike. Changes cushion monthly. AHI is normalized. SLEEP-WAKE SCHEDULE Bedtime: 11 PM. He does not have a hard time falling asleep. Takes 15-30 min. Wake time: 6-7 AM, without an alarm. After falling asleep: he does not usually wake up during the night. On weekends, he maintains the same sleep schedule. Average total sleep time (in a 24 hour period): 6 hours. SLEEP-RELATED DETAILS Preferred sleep position: side or back Breathing disturbances and other behaviors during sleep: snoring. Bruxism: No GERD or aspiration: No (used to) Waking up with heart pounding or racing: No Anxiety or rumination: No He reports having an urge to move the legs. The urge to move the legs only occurs in the evening or nighttime. The urge to move the legs begins or worsens during periods of rest or inactivity (e.g. lying or sitting). The urge to move the legs is partially or totally relieved by movements such as walking or stretching, at least as long as the activity continues. The urge to move the legs occurs 1 nights per week and began 1 years ago. There is no history of iron deficiency or anemia. He has not been told that he has leg kicking during sleep. He denies any history of parasomnias. Daytime sleepiness is not a problem. He does not report sleep paralysis or sleep-related hallucinations or cataplexy WAKE-RELATED DETAILS He works but is not a shift worker. 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 He does not have difficulty with memory or concentration. He denies falling asleep or dozing off when driving. He does take naps but shorter and fewer than before PAP He does drink 2 caffeinated beverages per day. Gained wt after knee surgery, now working on losing it. Patient Questionnaires Sleep Scores 07/31/2024 Sleep Questions Reason for visit: Sleep apnea Average hours of CPAP per night: 6 Percent of nights CPAP used at least 4 hours: 100 Accidents or near accidents due to drowsy drivin 07/31/2024 [place] Sleepiness Scale Score 5 (No clinically significant daytime sleepiness) 07/31/2024 PROMIS CAT Sleep Disturbance PROMIS Sleep Disturbance T-Score 44 (within normal limits) PROMIS Sleep Disturbance Percentile 73 07/31/2024 Restless Leg Syndrome Score 8 (Mild Symptoms) 07/31/2024 PHQ-9 Score 0 07/31/2024 PROMIS Global Health - (T-Scores - the mean of general population = 50. Five points is a clinically meaningful difference.) Physical T-Score 54.1 Mental T-Score 67.6 PAST TREATMENTS: CPAP 12 cmH2O DME [employer] PRIOR SLEEP STUDIES: A Home Sleep Test (HST) performed on 01/19/24 revealed an AHI of 62; supine index of 51; and a minimum oxygen saturation of 78%. 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 Rodriguez Unspecified hemorrhoids without mention of complication Hemorrhoids PAST (more content not included)... Normal [facility] NCS and/or EMG Patienton NCS and/or EMG Patient [facility]urology [address] [place] [address] MR#: [id number] Acct: [id number] Name: JEAN CARLOS NEVILLE Rep #: [id number] : 1950 73 From: Johny Ramires MD Referring Dr: Gorge Inman MD Status: REG CLI Location: N Date: 07/27/24 Sex: M C NCS and/or EMG Patient Report Ordering Doctor: Gorge Inman DATE OF SERVICE: 07/27/24 Jean Carlos presents with numbness and tingling in both hands, worse on the right side. Electrodiagnostic findings: Right median motor nerve demonstrates prolonged latency with reduced amplitude and normal conduction velocity. Left median motor nerve demonstrates prolonged latency with normal amplitude and conduction velocity. Ulnar motor responses within normal limits bilaterally. Prolonged median F???wave bilaterally. Absent right median sensory latency at the wrist. Prolonged left median sensory latency at the wrist. Needle EMG testing was performed in the upper limbs. All muscles tested showed no evidence of denervation with normal motor unit action potentials. Electrodiagnostic impression: This is an abnormal study in the upper limbs 1. Electrodiagnostic findings suggestive of bilateral median mononeuropathy. This is consistent with a mild left carpal tunnel syndrome and a moderate to advanced right carpal tunnel syndrome. 2. No electrodiagnostic evidence is noted for ulnar neuropathy, including cubital tunnel syndrome. 3. No electrodiagnostic evidence is noted for cervical radiculopathy. Multi Select Codes Neurology Neurology Interp Codes: 88306-54 Musc test done w/n test comp (interp) (2) and 05362-02 Nrv cndj test 9-10 studies (interp) 07/27/24 1333 Date Johny Ramires MD CC: Dr. Johny Ramires MD; Dr. Sebastian Velasco MD; Dr. Gorge Inman MD Date Dictated: 07/27/241328 Date Transcribed: 07/27/241328 Still Operator Brandy: AA Signed Normal [facility] CBC W Auto Differential pane l (Bld)on 04-28-2023 Basophils (Bld) [#/Vol] 0.05 10*3/uL <0.11 k/uL [facility] Basophils/100 WBC (Bld) 0.7 % [facility] Differential cell count method Nom (Bld) Auto [facility] Eosinophils (Bld) [#/Vol] 0.22 10*3/uL <0.46 k/uL [facility] Eosinophils/100 WBC (Bld) 3.0 % [facility] Erythrocyte distribution width (RBC) [Ratio] 12.9 % 11.5 - 15.0 % [facility] Hematocrit (Bld) [Volume fraction] 46.2 % 39.0 - 51.0 % [facility] Hemoglobin (Bld) [Mass/Vol] 14.9 g/dL 13.0 - 17.0 g/dL [facility] Immature granulocytes (Bld) [#/Vol] 0.03 10*3/uL <0.10 k/uL [facility] Immature granulocytes/100 WBC (Bld) 0.4 % [facility] Lymphocytes (Bld) [#/Vol] 1.79 10*3/uL 1.00 - 4.00 k/uL [facility] Lymphocytes/100 WBC (Bld) 24.5 % [facility] MCH (RBC) [Entitic mass] 30.2 pg 26.0 - 34.0 pg [facility] MCHC (RBC) [Mass/Vol] 32.3 g/dL 30.5 - 36.0 g/dL [facility] MCV (RBC) [Entitic vol] 93.7 fL 80.0 - 100.0 fL [facility] Monocytes (Bld) [#/Vol] 0.57 10*3/uL <0.87 k/uL [facility] Monocytes/100 WBC (Bld) 7.8 % [facility] Neutrophils (Bld) [#/Vol] 4.64 10*3/uL 1.45 - 7.50 k/uL [facility] Neutrophils/100 WBC (Bld) 63.6 % [facility] Nucleated RBC (Bld) [#/Vol] <0.01 k/uL [facility] Nucleated RBC/100 WBC (Bld) [Ratio] 0.0 /100 WBC [facility] Platelet mean volume (Bld) [Entitic vol] 9.4 fL 9.0 - 12.7 fL [facility] Platelets (Bld) [#/Vol] 270 10*3/uL 150 - 400 k/uL [facility] RBC (Bld) [#/Vol] 4.93 10*6/uL 4.20 - 6.0 0 m/uL [facility] WBC (Bld) [#/Vol] 7.30 10*3/uL 3.70 - 11. 00 k/uL [facility] BONE THREE PHASE STUDY SC AN 03-10-2023 NM BONE THREE PHASE STUDY SCAN 1 ORIGINAL EXAMINATION: THREE PHASE BONE SCAN03/09/2023 1:29 pm TECHNIQUE: The patient received an intravenous injection of 28.7 millicuries of Tc-99m MDP. Immediate dynamic planar perfusion images of bilateral knees were acquired followed by static planar early blood pool images. After approximately 3h, multiple delayed static planar images were then acquired. COMPARISON: No relevant imaging available for comparison at the time of dictation HISTORY: ORDERING SYSTEM PROVIDED HISTORY: Reason for Exam: Presence of left artificial knee joint medial left knee joint pain and swelling since surgery 18 months prior FINDINGS: Early phase images demonstrate mild asymmetric increased uptake involving the left knee joint capsule on soft tissues on both the flow and blood pool images. Delayed osseous phase images demonstrate asymmetric mild diffusely increased uptake involving the left knee joint prosthesis. No significant focal periprosthetic activity. IMPRESSION: 1. Asymmetric early phase activity, likely reflective of soft tissue inflammation about the left knee. 2. Nonfocal mild diffuse periprosthetic activity is nonspecific, but favors to be normal reactive change. Recommend correlation with radiograph. No convincing evidence of hardware loosening. Infectious etiology is considered less likely, although if there is high clinical concern, a dual radiotracer study with indium tagged white blood cells and sulfur colloid with SPECT/CT could be performed. I have personally reviewed the images of this examination and agree with the resident's findings and interpretation. Interpreted by: Mello Mascorro DO Preliminary Report By: Singh Craig Electronically signed By Mello Mascorro DO Dictated Date: 03/09/2023 2:01:22 PM Prelim Date: 03/10/2023 7:44:07 AM Sign Date: 03/10/2023 7:44:07 AM Ordering Provider: GORGE INMAN [facility] ([place]) Absolute lymphocyte countOrd ered By: Dr. Inman on 02-19-2023 Lymphocytes Auto (Unsp spec) [#/Vol] 1.45 10*3/uL 0.83-4.51 [facility] Basophil percentageOrdered B y: Dr. Inman on 02-19-2023 Basophils/100 WBC (Bld) 0.7 % 0-1 [facility] Eosinophils/100 WBC (Bld) 1.1 % 0-5 [facility] Neutrophils (Bld) [#/Vol] 4.8 10*3/uL 2.0-7.7 [facility] Neutrophils/100 WBC (Bld) 68.0 % 47-70 [facility] WBC (Bld) [#/Vol] 7.1 10*3/uL 4.4-11.0 [facility] Blood erythrocytes count (nu mber/volume)Ordered By: Dr. Inman on 02-19-2023 RBC (Bld) [#/Vol] 4.67 10*6/uL 4.6-6.2 [facility] Blood hemoglobin measurement (mass/volume)Ordered By: Dr. Inman on 02-19-2023 Hemoglobin (Bld) [Mass/Vol] 14.3 g/dL 13.0-16.5 [facility] Blood lymphocytes/100 leukoc ytesOrdered By: Dr. Inman on 02-19-2023 Lymphocytes/100 WBC (Bld) 20.5 % 19-41 [facility] Blood monocytes/100 leukocyt esOrdered By: Dr. Inman on 02-19-2023 Monocytes/100 WBC (Bld) 9.3 % 0-10 [facility] Blood platelet mean volumeOr dered By: Dr. Inman on 02-19-2023 Platelet mean volume (Bld) [Entitic vol] 8.9 fL 6.2-12.0 [facility] Determination of erythrocyte mean corpuscular volume (MCV)Ordered By: Dr. Inman on 02-19-2023 MCV (RBC) [Entitic vol] 92.3 fL 80-94 [facility] Erythrocyte sedimentation ra teOrdered By: Dr. Inman on 02-19-2023 ESR (Bld) [Velocity] 31 mm/h 0-20 [facility] Hematocrit Auto (Bld) [Volum e fraction]Ordered By: Dr. Inman on 02-19-2023 Hematocrit (Bld) [Volume fraction] 43.1 % 40-54 [facility] Laboratory - Hematology and Cell countsOrdered By: Dr. Inman on 02-19-2023 Erythrocyte distribution width (RBC) [Entitic vol] 43.9 fL 35.1-43.9 [facility] Erythrocyte distribution width (RBC) [Ratio] 13.1 % 11.6-14.6 [facility] Immature granulocytes/100 WBC (Bld) 0.400 % 0.0-0.9 [facility] Comment on above: IG% - Immature Granu locytes (promyelocytes, myelocytes and metamyelocytes) > 1% indicates that a LEFT SHIFT is Present. MCH (RBC) [Entitic mass] 30.6 pg 27.0-32.0 [facility] Nucleated RBC/100 WBC (Bld) [Ratio] 0 % 0-5 [facility] MCHC Auto (RBC) [Mass/Vol]Or dered By: Dr. Inman on 02-19-2023 MCHC (RBC) [Mass/Vol] 33.2 g/dL 32-36 [facility] Platelets bldOrdered By: Dr. Inman on 02-19-2023 Platelets (Bld) [#/Vol] 272 10*3/uL 150-450 [facility] Serum or plasma C reactive p rotein measurement (mass/volume)Ordered By: Dr. Inman on 02-19-2023 CRP [Mass/Vol] 16.90 mg/L 0.0-3.0 [facility] Comment on above: C-Reactive Protein ( CRP) provides useful information for thediagnosis, therapy and monitoring of inflammatory processesand associated diseases. For the evaluation of Relative Riskfor Cardiovascular Disease, a High Sensitivity CRP (HSCRP)should be ordered. Absolute lymphocyte counton 03-11-2022 Lymphocytes Auto (Unsp spec) [#/Vol] 1.17 10*3/uL 0.83-4.51 [facility] Work Phone: Basophil percentageon 2021 Basophils/100 WBC (Bld) 0.4 % 0-1 [facility] Work Phone: Chloride [Moles/Vol] 109 mmol/L 98-107 [facility] Work Phone: Eosinophils/100 WBC (Bld) 0.5 % 0-5 [facility] Work Phone: Glucose [Mass/Vol] 108 mg/dL 74-106 [facility] Work Phone: Comment on above: Fasting Glucose resu lt from 100 to 125 mg/dL suggests IMPAIRED HOMEOSTASIS per A.D.A. criteria. Neutrophils (Bld) [#/Vol] 6.0 10*3/uL 2.0-7.7 [facility] Work Phone: Neutrophils/100 WBC (Bld) 75.0 % 47-70 [facility] Work Phone: Potassium [Moles/Vol] 4.3 mmol/L 3.5-5.1 [facility] Work Phone: Comment on above: Slight Hemolysis, Re sult may be falsely increased. Sodium [Moles/Vol] 142 mmol/L 136-145 [facility] Work Phone: WBC (Bld) [#/Vol] 8.1 10*3/uL 4.4-11.0 [facility] Work Phone: Blood erythrocytes count (nu mber/volume)on 03-11-2022 RBC (Bld) [#/Vol] 4.23 10*6/uL 4.6-6.2 [facility] Work Phone: Blood hemoglobin measurement (mass/volume)on 03-11-2022 Hemoglobin (Bld) [Mass/Vol] 12.4 g/dL 13.0-16.5 [facility] Work Phone: Blood lymphocytes/100 leukoc yteson 03-11-2022 Lymphocytes/100 WBC (Bld) 14.5 % 19-41 [facility] Work Phone: Blood monocytes/100 leukocyt eson 03-11-2022 Monocytes/100 WBC (Bld) 9.2 % 0-10 [facility] Work Phone: Blood platelet mean volumeon 03-11-2022 Platelet mean volume (Bld) [Entitic vol] 8.8 fL 6.2-12.0 [facility] Work Phone: Determination of erythrocyte mean corpuscular volume (MCV)on 03-11-2022 MCV (RBC) [Entitic vol] 92.2 fL 80-94 [facility] Work Phone: Hematocrit Auto (Bld) [Volum e fraction]on 03-11-2022 Hematocrit (Bld) [Volume fraction] 39.0 % 40-54 [facility] Work Phone: Laboratory - Chemistry and C hemistry - challengeon 03-11-2022 CO2 [Moles/Vol] 26.0 mmol/L 21.0-32.0 [facility] Work Phone: Urea nitrogen/Creatinine [Mass ratio] 19.1 mg/mg 10-20 [facility] Work Phone: Laboratory - Hematology and Cell countson 03-11-2022 Erythrocyte distribution width (RBC) [Entitic vol] 44.3 fL 35.1-43.9 [facility] Work Phone: Erythrocyte distribution width (RBC) [Ratio] 13.1 % 11.6-14.6 [facility] Work Phone: Immature granulocytes/100 WBC (Bld) 0.400 % 0.0-0.9 [facility] Work Phone: Comment on above: IG% - Immature Granu locytes (promyelocytes, myelocytes and metamyelocytes) > 1% indicates that a LEFT SHIFT is Present. MCH (RBC) [Entitic mass] 29.3 pg 27.0-32.0 [facility] Work Phone: Nucleated RBC/100 WBC (Bld) [Ratio] 0 % 0-5 [facility] Work Phone: MCHC Auto (RBC) [Mass/Vol]on 03-11-2022 MCHC (RBC) [Mass/Vol] 31.8 g/dL 32-36 [facility] Work Phone: No Panel Informationon 03-11 Estimated Creatinine Clearance Calc 76.52 ml/min [facility] Work Phone: Estimated GFR (MDRD) Amer 126 mL/min >60 [facility] Work Phone: Comment on above: GFR Calc Estimated GFR (MDRD) Non-Af Amer 104 mL/min >60 [facility] Work Phone: Comment on above: Non- GFR Calc Platelets bldon 03-11-2022 Platelets (Bld) [#/Vol] 258 10*3/uL 150-450 [facility] Work Phone: Serum or plasma calcium alexsandra urement (mass/volume)on 03-11-2022 Calcium [Mass/Vol] 8.9 mg/dL 8.5-10.1 [facility] Work Phone: Serum or plasma creatinine m easurement (mass/volume)on 03-11-2022 Creatinine [Mass/Vol] 0.79 mg/dL 0.70-1.30 [facility] Work Phone: Comment on above: The validity of the calculated GFR & GFRAA in patients over 70 years has not been determined. Clinical correlation is essential. Serum or plasma urea nitroge n measurement (mass/volume)on 03-11-2022 Urea nitrogen [Mass/Vol] 15 mg/dL 7-18 [facility] Work Phone: Thin prep Papanicolaou smear with manual screeningon 03-11-2022 Thin prep Papanicolaou smear with manual screening 7 5-15 [facility] Work Phone: Vital Signs Date Time Vital Sign Value Performing Clinician Facility 05-20-2025 08:10-0400 Body mass index (BMI) [Ratio] 35.29 kg/m2 Jensen Mcnamara MD Work Phone: [facility] 05-20-2025 08:10-0400 Body temperature 99.19 [degF] Jensen Mcnamara MD Work Phone: [facility] 05-20-2025 08:10-0400 Body weight 115.5 kg Jensen Mcnamara MD Work Phone: [facility] 05-20-2025 08:10-0400 Diastolic blood pressure 62 mm[Hg] Jensen Mcnamara MD Work Phone: [facility] 05-20-2025 08:10-0400 Heart rate 85 /min Jensen Mcnamara MD Work Phone: [facility] 05-20-2025 08:10-0400 Respiratory rate 20 /min Jensen Mcnamara MD Work Phone: [facility] 05-20-2025 08:10-0400 SaO2% (BldA) [Mass fraction] 95 % Jensen Mcnamara MD Work Phone: [facility] 05-20-2025 08:10-0400 Systolic blood pressure 140 mm[Hg] Jensen Mcnamara MD Work Phone: [facility] 12-26-2024 08:47-0400 Diastolic blood pressure 64 mm[Hg] Ada Velasco MD Work Phone: [facility] Comment on above: recheck 12-26-2024 08:47-0400 Systolic blood pressure 130 mm[Hg] Ada Velasco MD Work Phone: [facility] Comment on above: recheck 12-26-2024 08:00-0400 Body mass index (BMI) [Ratio] 37.15 kg/m2 Ada Velasco MD Work Phone: [facility] 12-26-2024 08:00-0400 Body weight 121.56 kg Ada Velasco MD Work Phone: [facility] 12-26-2024 08:00-0400 Heart rate 66 /min Ada Velasco MD Work Phone: [facility] 12-26-2024 08:00-0400 Respiratory rate 16 /min Ada Velasco MD Work Phone: [facility] 12-26-2024 08:00-0400 SaO2% (BldA) [Mass fraction] 98 % Ada Velasco MD Work Phone: [facility] 08-03-2024 08:50-0500 Body mass index (BMI) [Ratio] 37.65 kg/m2 Harvey Tesfaye APRN.BOARD FILLER Work Phone: [facility] 08-03-2024 08:50-0500 Body weight 123.2 kg Harvey Tesfaye APRN.BOARD FILLER Work Phone: [facility] 08-03-2024 08:50-0500 Diastolic blood pressure 69 mm[Hg] Harvey Mera FUNERAL 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.BOARD FILLER Work Phone: [facility] 08-03-2024 08:50-0500 Heart rate 71 /min Harvey Mera FUNERAL 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.BOARD FILLER Work Phone: [facility] 08-03-2024 08:50-0500 Respiratory rate 16 /min Harvey Mera FUNERAL 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.BOARD FILLER Work Phone: [facility] 08-03-2024 08:50-0500 Systolic blood pressure 130 mm[Hg] Harvey Mera FUNERAL 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.BOARD FILLER Work Phone: [facility] 04-19-2024 07:37-0400 Body mass index (BMI) [Ratio] 38.73 kg/m2 Kacie Podlogar FUNERAL 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.BOARD FILLER Work Phone: [facility] 04-19-2024 07:37-0400 Body weight 126.73 kg Kacie Podlogar FUNERAL 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.BOARD FILLER Work Phone: [facility] 04-19-2024 07:37-0400 Diastolic blood pressure 72 mm[Hg] Kacie Podlogar FUNERAL 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.BOARD FILLER Work Phone: [facility] 04-19-2024 07:37-0400 Heart rate 69 /min Kacie Podlogar FUNERAL 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.BOARD FILLER Work Phone: [facility] 04-19-2024 07:37-0400 Respiratory rate 18 /min Kacie Podlogar FUNERAL 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.BOARD FILLER Work Phone: [facility] 04-19-2024 07:37-0400 SaO2% (BldA) [Mass fraction] 95 % Kacie Podlogar FUNERAL 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.BOARD FILLER Work Phone: [facility] 04-19-2024 07:37-0400 Systolic blood pressure 132 mm[Hg] Kacie Podlogar FUNERAL 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.BOARD FILLER Work Phone: [facility] 02-19-2024 08:53-0400 Body mass index (BMI) [Ratio] 38.56 kg/m2 Kacie Podlogar FUNERAL 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.BOARD FILLER Work Phone: [facility] 02-19-2024 08:53-0400 Body weight 126.19 kg Kacie Podlogar FUNERAL 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.BOARD FILLER Work Phone: [facility] 02-19-2024 08:53-0400 Diastolic blood pressure 70 mm[Hg] Kacie Podlogar FUNERAL 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.BOARD FILLER Work Phone: [facility] 02-19-2024 08:53-0400 Heart rate 76 /min Kacie Podlogar FUNERAL 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.BOARD FILLER Work Phone: [facility] 02-19-2024 08:53-0400 Respiratory rate 18 /min Kacie Podlogar FUNERAL 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.BOARD FILLER Work Phone: [facility] 02-19-2024 08:53-0400 SaO2% (BldA) [Mass fraction] 96 % Kacie Podlogar FUNERAL 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.BOARD FILLER Work Phone: [facility] 02-19-2024 08:53-0400 Systolic blood pressure 126 mm[Hg] Kacie Podlogar FUNERAL 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.BOARD FILLER Work Phone: [facility] 12-28-2023 11:35-0400 Body height 180.9 cm Kacie Podlogar FUNERAL 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.BOARD FILLER Work Phone: [facility] 12-28-2023 11:35-0400 Body weight 125.19 kg Kacie Podlogar FUNERAL 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.BOARD FILLER Work Phone: [facility] 12-28-2023 11:35-0400 Diastolic blood pressure 74 mm[Hg] Kacie Podlogar FUNERAL 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.BOARD FILLER Work Phone: [facility] 12-28-2023 11:35-0400 Heart rate 86 /min Kacie Podlogar FUNERAL 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.BOARD FILLER Work Phone: [facility] 12-28-2023 11:35-0400 Respiratory rate 16 /min Kacie Podlogar FUNERAL 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.BOARD FILLER Work Phone: [facility] 12-28-2023 11:35-0400 SaO2% (BldA) [Mass fraction] 96 % Kacie Podlogar FUNERAL 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.BOARD FILLER Work Phone: [facility] 12-28-2023 11:35-0400 Systolic blood pressure 126 mm[Hg] Kacie Podlogar FUNERAL 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.BOARD FILLER Work Phone: [facility] 12-16-2023 09:00-0400 Body height 180.9 cm Kacie Podlogar FUNERAL 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.BOARD FILLER Work Phone: [facility] 12-16-2023 09:00-0400 Body weight 124.1 kg Kacie Podlogar FUNERAL 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.BOARD FILLER Work Phone: [facility] 12-16-2023 09:00-0400 Diastolic blood pressure 68 mm[Hg] Kacie Podlogar FUNERAL 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.BOARD FILLER Work Phone: [facility] 12-16-2023 09:00-0400 Heart rate 76 /min Kacie Podlogar FUNERAL 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.BOARD FILLER Work Phone: [facility] 12-16-2023 09:00-0400 Respiratory rate 18 /min Kacie Podlogar FUNERAL 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.BOARD FILLER Work Phone: [facility] 12-16-2023 09:00-0400 SaO2% (BldA) [Mass fraction] 97 % Kacie Podlogar FUNERAL 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.BOARD FILLER Work Phone: [facility] 12-16-2023 09:00-0400 Systolic blood pressure 112 mm[Hg] Kacie Podlogar FUNERAL 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.BOARD FILLER Work Phone: [facility] 04-28-2023 10:36-0400 Body weight 116.57 kg Kacie Podlogar FUNERAL 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.BOARD FILLER Work Phone: [facility] 04-28-2023 10:36-0400 Diastolic blood pressure 70 mm[Hg] Kacie Podlogar FUNERAL 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.BOARD FILLER Work Phone: [facility] 04-28-2023 10:36-0400 Heart rate 75 /min Kacie Podlogar FUNERAL 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.BOARD FILLER Work Phone: [facility] 04-28-2023 10:36-0400 Respiratory rate 18 /min Kacie Podlogar FUNERAL 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.BOARD FILLER Work Phone: [facility] 04-28-2023 10:36-0400 SaO2% (BldA) [Mass fraction] 96 % Kacie Podlogar FUNERAL 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.BOARD FILLER Work Phone: [facility] 04-28-2023 10:36-0400 Systolic blood pressure 132 mm[Hg] Kacie Podlogar FUNERAL 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.BOARD FILLER Work Phone: [facility] 12-09-2022 07:04-0400 Body temperature 98.6 [degF] Dr. Sebastian Velasco Work Phone: [facility] 12-09-2022 07:04-0400 Diastolic blood pressure 79 mm[Hg] Dr. Sebastian Velasco Work Phone: [facility] 12-09-2022 07:04-0400 Heart rate 85 /min Dr. Sebastian Velasco Work Phone: [facility] 12-09-2022 07:04-0400 Respiratory rate 16 /min Dr. Sebastian Velasco Work Phone: [facility] 12-09-2022 07:04-0400 SaO2% (BldA) [Mass fraction] 96 % Dr. Sebastian Velasco Work Phone: [facility] 12-09-2022 07:04-0400 Systolic blood pressure 131 mm[Hg] Dr. Sebastian Velasco Work Phone: [facility] 12-09-2022 05:44-0400 Body height 182.[address] Sebastian Velasco Work Phone: [facility] 12-09-2022 05:44-0400 Body mass index (BMI) [Ratio] 35.4 kg/m2 Dr. Sebastian Velasco Work Phone: [facility] 12-09-2022 05:44-0400 Body weight 118.[address] Sebastian Velasco Work Phone: [facility] 11-06-2022 14:47-0500 Body mass index (BMI) [Ratio] 34.8 kg/m2 Dr. Sebastian Velasco Work Phone: [facility] 11-06-2022 14:47-0500 Body weight 113.[address] Sebastian Velasco Work Phone: [facility] 03-21-2022 10:00-0400 Body weight 118.75 kg Kacie Podlogar FUNERAL 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.BOARD FILLER Work Phone: [facility] 03-21-2022 10:00-0400 Diastolic blood pressure 68 mm[Hg] Kacie Podlogar FUNERAL 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.BOARD FILLER Work Phone: [facility] 03-21-2022 10:00-0400 Heart rate 80 /min Kacie Podlogar FUNERAL 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.BOARD FILLER Work Phone: [facility] 03-21-2022 10:00-0400 Respiratory rate 18 /min Kacie Podlogar FUNERAL 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.BOARD FILLER Work Phone: [facility] 03-21-2022 10:00-0400 SaO2% (BldA) [Mass fraction] 97 % Kacie Podlogar FUNERAL 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.BOARD FILLER Work Phone: [facility] 03-21-2022 10:00-0400 Systolic blood pressure 132 mm[Hg] Kacie Podlogar FUNERAL 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.BOARD FILLER Work Phone: [facility] 03-11-2022 23:44-0400 Diastolic blood pressure 74 mm[Hg] [facility] Work Phone: 03-11-2022 23:44-0400 Heart rate 78 /min [facility] Work Phone: 03-11-2022 23:44-0400 Respiratory rate 17 /min [facility] Work Phone: 03-11-2022 23:44-0400 SaO2% (BldA) [Mass fraction] 99 % [facility] Work Phone: 03-11-2022 23:44-0400 Systolic blood pressure 132 mm[Hg] [facility] Work Phone: 03-11-2022 19:13-0400 Body height 182.88 cm [facility] Work Phone: 03-11-2022 19:13-0400 Body mass index (BMI) [Ratio] 35.5 kg/m2 [facility] Work Phone: 03-11-2022 19:13-0400 Body temperature 98.7 [degF] [facility] Work Phone: 03-11-2022 19:13-0400 Body weight 118.84 kg [facility] Work Phone: Encounters Encounter Date Encounter Type Care Provider Facility Start: 05-20-2025 End: 05-20-2025 ambulatory ADA VELASCO Facility[facility] Start: 05-20-2025 End: 05-20-2025 Office outpatient visit 25 minutes Jensen Mcnamara MD Work Phone: [facility] Comment on above: Viral URI with cough (Primary Dx) Start: 04-20-2025 End: 04-21-2025 Refill Kacie Rodriguez APRN.CNP Work Phone: [facility] Comment on above: Refill Request Start: 02-13-2025 End: 02-14-2025 Refill Ada Velasco MD Work Phone: [facility] Comment on above: Refill Request Start: 12-29-2024 End: 12-29-2024 Follow-up encounter Ada Velasco MD Work Phone: [facility] Comment on above: Results Start: 12-28-2024 End: 12-29-2024 Telephone encounter Ada Velasco MD Work Phone: [facility] Comment on above: Patient Question Start: 12-28-2024 End: 12-28-2024 ambulatory ADA VELASCO Facility:[facility] Start: 12-28-2024 End: 12-29-2024 Patient encounter procedure Ada Velasco MD Work Phone: [facility] Work Phone: Start: 12-26-2024 End: 12-26-2024 Patient encounter procedure Ada Velasco MD Work Phone: [facility] Comment on above: Medicare annual well ness visit, subsequent (Primary Dx); Decreased visual acuity Start: 12-26-2024 End: 12-26-2024 ambulatory ADA VELASCO Facility:[facility] Start: 12-06-2024 End: 12-07-2024 Refill Ada Velasco MD Work Phone: [facility] Comment on above: Refill Request Start: 11-15-2024 End: 11-16-2024 Refill Kacie Podlogar FUNERAL 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.BOARD FILLER Work Phone: [facility] Comment on above: Refill Request Start: 08-03-2024 End: 08-03-2024 Patient encounter procedure Harvey Tesfaye FUNERAL 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.BOARD FILLER Work Phone: Neurology Comment on above: ALONSO (obstructive sle ep apnea) (Primary Dx); RLS (restless legs syndrome) Start: 08-03-2024 End: 08-03-2024 ambulatory KACIE PODLOGAR Facility:[facility] Start: 07-28-2024 End: 07-29-2024 Refill Sendy Hernandez FUNERAL 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.BOARD FILLER Work Phone: [facility] Comment on above: Refill Request Start: 07-27-2024 ambulatory [facility] Facility: [facility] Start: 07-27-2024 End: 07-27-2024 ambulatory [facility] Facility:[facility] Start: 06-13-2024 End: 06-14-2024 Refill Kacie Podlogar FUNERAL 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.BOARD FILLER Work Phone: [facility] Comment on above: Refill Request Start: 05-05-2024 Refill Ada Velasco MD Work Phone: [facility] Comment on above: Refill Request Start: 04-19-2024 Telephone encounter Kacie Podl ogar FUNERAL 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.BOARD FILLER [facility] Start: 04-19-2024 End: 04-19-2024 Patient encounter procedure Kacie Podlogar FUNERAL 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.BOARD FILLER Work Phone: [facility] Comment on above: ALONSO (obstructive sle ep apnea) (Primary Dx) Start: 04-06-2024 Telephone encounter Neurology Provid er Neurology Comment on above: Patient Question Start: 03-08-2024 Telephone encounter Kacie Podl ogar FUNERAL 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.BOARD FILLER Work Phone: [facility] Comment on above: [employer] requesting rec ords Start: 02-29-2024 End: 02-29-2024 ambulatory [facility] Facility:[facility] Start: 02-19-2024 End: 02-19-2024 Patient encounter procedure Kacie Podlogar FUNERAL 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.BOARD FILLER Work Phone: [facility] Comment on above: ALONSO (obstructive sle ep apnea) (Primary Dx) Start: 02-10-2024 End: 02-10-2024 ambulatory [facility] Facility:[facility] Start: 02-07-2024 Refill Ada Velasco MD Work Phone: [facility] Comment on above: Refill Request Start: 01-26-2024 Telephone encounter Sebastian Velasco MD Work Phone: [facility] Comment on above: Results Start: 01-11-2024 [facility] Work Phone: Neurology Start: 12-28-2023 End: 12-28-2023 Patient encounter procedure Kacie Podlogar FUNERAL 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.BOARD FILLER Work Phone: [facility] Comment on above: Difficulty breathing (Primary Dx); Snoring; Hypersomnia, unspecified Start: 12-26-2023 Telephone encounter Sebastian Velasco MD Work Phone: [facility] [place] Comment on above: Patient Update; Appo intment Request Start: 12-16-2023 End: 12-16-2023 Patient encounter procedure Kacie Podlogar FUNERAL 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.BOARD FILLER Work Phone: [facility] Comment on above: Medicare annual well ness visit, subsequent (Primary Dx) Start: 11-04-2023 Refill Ada Velasco MD Work Phone: [facility] [place] Comment on above: Refill Request Start: 08-05-2023 Refill Kacie Podlogar FUNERAL 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.BOARD FILLER Work Phone: [facility] Comment on above: Refill Request Start: 05-12-2023 Refill Kacie Podlogar FUNERAL 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.BOARD FILLER Work Phone: [facility] Comment on above: Refill Request Start: 04-28-2023 Telephone encounter Kacie Podl ogar FUNERAL 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.BOARD FILLER Work Phone: [facility] [place] Comment on above: Forms (Surgery Clear ance ) Start: 04-28-2023 End: 04-28-2023 Patient encounter procedure Kacie Podlogar FUNERAL 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.BOARD FILLER Work Phone: [facility] Comment on above: Preop examination (P rimary Dx) Start: 04-28-2023 End: 04-28-2023 Preprocedural examination done Kacie Podlogar FUNERAL 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.BOARD FILLER Work Phone: [facility] Work Phone: Start: 03-09-2023 End: 03-10-[address] GORGE INMAN MD Facility:[facility] Start: 03-09-2023 End: 03-09-[address] GORGE INMAN MD [facility] Start: 02-27-[address] GORGE INMAN MD F acility:B Start: 02-19-2023 End: 02-19-[address] Sebastian Velasco Work Phone: [facility] Work Phone: Start: 02-19-2023 End: 02-19-[address] Sebastian Velasco Work Phone: [facility]Laboratory Start: 12-12-2022 Refill Ada Velasco MD Work Phone: [facility] Comment on above: Refill Request Start: 12-09-2022 Non-patient / Non-visit Dr. Gee Velasco Work Phone: [facility] Start: 12-09-2022 End: 12-09-2022 Admission to same day surgery center Dr. Sebastian Velasco Work Phone: [facility] Start: 12-09-2022 End: 12-09-[address] Sebastian Velasco Work Phone: [facility] Work Phone: Start: 11-06-2022 Non-patient / Non-visit Dr. Gee Velasco Work Phone: [facility] Start: 11-06-2022 Refill Kacie Rodriguez APRN.BOARD FILLER Work Phone: [facility] Comment on above: Refill Request Start: 07-12-2022 End: 07-12-2022 ambulatory [facility] Work Phone: [facility] Comment on above: Arrived Start: 06-02-2022 Refill Ada Velasco MD Work Phone: [facility] Comment on above: Refill Request Start: 04-04-2022 Telephone encounter Kacie francis APRN.BOARD FILLER Work Phone: [facility] Comment on above: Results Start: 03-21-2022 End: 03-21-2022 Patient encounter procedure Kacie Rodriguez APRN.BOARD FILLER Work Phone: [facility] Comment on above: Fall on same level f rom slipping, tripping and stumbling with subsequent striking against furniture, subsequent encounter (Primary Dx); Class 1 obesity due to excess calories without serious comorbidity with body mass index (BMI) of 33.0 to 33.9 in adult; Laceration of left little finger without foreign body without damage to nail, subsequent encounter; Contusion of abdominal wall, subsequent encounter Start: 03-11-2022 End: 03-11-2022 Emergency department patient visit [facility] Start: 03-11-2022 End: 03-11-2022 Patient encounter procedure Jean Carlos Ruiz APRN.BOARD FILLER Work Phone: [facility] Comment on above: Fall, initial encoun ter (Primary Dx); Abdominal pain, unspecified abdominal location Start: 02-05-2022 Refill Hannah Lindsay APRN.BOARD FILLER Work Phone: [facility] [place] Comment on above: Refill Request Start: 12-26-2021 Telephone encounter Sebastian Velasco MD Work Phone: [facility] Comment on above: Opened In Error Procedures Date Procedure Procedure Detail Performing Clinician Start: 12-28-2024 Lipid 1996 panel - S sigrid or Plasma Ada Velasco MD Work Phone: Start: 12-09-[address] Seamus Velasco Work Phone: Start: 07-12-2022 INFLUENZA SEASONAL QUADRIVALENT HIGH DOSE AGE 65+ Tejas Solo MD Work Phone: Start: 07-09-2022 Lipid 1996 panel - S sigrid or Plasma Kacie Rodriguez FUNERAL 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.BOARD FILLER Work Phone: Start: 03-11-2022 Plain chest X-ray Start: 03-11-2022 Computed tomography of abdomen and pelvis with intravenous contrast Start: 12-01-2017 Colonoscopy Sebastian Velasco MD Work Phone: H/O: surgery S/P surgical rem oval of pilonidal cyst Plan of Treatment Date Care Activity Detail Author Start: 09-04-2030 Urine microalbumin profile [facility] Start: 12-28-2029 Lipid panel Lipid Screening [facility] Start: 12-29-2027 Diabetes Screening Diabetes Screenin g [facility] Start: 12-10-2027 Screening for malign ant neoplasm of colon [facility] Comment on above: Postponed from 12/09 (Postponed - Not Clinically Indicated) Start: 2027 RSV Vaccine (1 - 1-d ose 75+ series) RSV Vaccine (1 - 1-dose 75+ series) [facility] Start: 07-09-2027 Lipid 1996 panel - S sigrid or Plasma Lipid Screening [facility] Start: 07-09-2027 Lipid panel Lipid Screening [facility] Start: 07-09-2027 LIPID SCREEN LIPID SCREEN [facility] Start: 04-03-2027 LIPID SCREEN LIPID SCREEN [facility] Start: 04-28-2026 DIABETES SCREEN DIABETES SCREEN [facility] Start: 04-28-2026 Diabetes Screening Diabetes Screenin g [facility] Start: 03-27-2026 LIPID SCREEN LIPID SCREEN [facility] Start: 12-26-2025 Covid-19 Vaccine () Covid-19 Vaccine () [facility] Comment on above: Postponed from 12/12 (Declined at this time) Start: 12-26-2025 Medicare Annual Well ness Visit Medicare Annual Wellness Visit [facility] Start: 08-02-2025 End: 08-02-2025 Patient encounter procedure Neurology Comment on above: Sleep Med Follow Up / ALONSO on CPAP Start: 07-09-2025 DIABETES SCREEN DIABETES SCREEN [facility] Start: 06-27-2025 End: 06-27-2025 Patient encounter procedure 06/27/2025 8:00 AM EDT Office Visit Family [facility] [address] [place] [address] PodlogarKacie APRN.BOARD FILLER [address] [place] [address] 6 month follow up [facility] Comment on above: 6 month follow up Start: 05-22-2025 Influenza vaccination Influenza Vacc ine (#1) [facility] Start: 04-03-2025 DIABETES SCREEN DIABETES SCREEN [facility] Start: 03-27-2025 End: 06-26-2025 Lipid 1996 panel - Serum or Plasma LIPID PANEL, FASTING Lab Routine Medicare annual wellness visit, subsequent Expected: 03/27/2025, Expires: 06/26/2025 [facility] Comment on above: Expected: 03/27/2025 , Expires: 06/26/2025 Start: 12-26-2024 End: 03-27-2025 CBC W Auto Differential panel - Blood COMPLETE BLOOD COUNT AND DIFFERENTIAL Lab Routine Medicare annual wellness visit, subsequent Expected: 12/26/2024, Expires: 03/27/2025 [facility] Work Phone: Comment on above: Expected: 12/26/2024 , Expires: 03/27/2025 Start: 12-26-2024 End: 03-27-2025 Comprehensive metabolic 2000 panel - Serum or Plasma COMPREHENSIVE METABOLIC PANEL Lab Routine Medicare annual wellness visit, subsequent Expected: 12/26/2024, Expires: 03/27/2025 [facility] Comment on above: Expected: 12/26/2024 , Expires: 03/27/2025 Start: 12-26-2024 End: 03-27-2025 Hemoglobin A1c in Blood HEMOGLOBIN A1C Lab Routine Medicare annual wellness visit, subsequent Expected: 12/26/2024, Expires: 03/27/2025 [facility] Comment on above: Expected: 12/26/2024 , Expires: 03/27/2025 Start: 12-26-2024 End: 03-27-2025 Thyrotropin [Units/volume] in Serum or Plasma THYROID STIMULATING HORMONE Lab Routine Medicare annual wellness visit, subsequent Expected: 12/26/2024, Expires: 03/27/2025 [facility] Comment on above: Expected: 12/26/2024 , Expires: 03/27/2025 Start: 12-26-2024 End: 12-26-2024 Patient encounter procedure 12/26/2024 8:00 AM EDT Office Visit [facility] [address] [place] [id number] Ada Velasco MD [address] [place] [id number] Medicare Wellness [facility] Comment on above: Medicare Wellness Start: 12-15-2024 Covid-19 Vaccine () Covid-19 Vaccine () [facility] Comment on above: Postponed from 06/01 (Declined at this time) Start: 12-12-2024 Covid-19 Vaccine () Covid-19 Vaccine () [facility] Start: 12-06-2024 DIABETES SCREEN DIABETES SCREEN [facility] Start: 09-21-2024 Advance Directive Discussion Advance Directive Discussion [facility] Start: 08-03-2024 End: 08-03-2024 Patient encounter procedure Neurology Comment on above: alonso ALONSO, DME is [employer] Start: 06-17-2024 End: 06-17-2024 ambulatory 06/17/2024 7:00 AM EDT [facility] [address] [place] [address] Arsenio Avalos, FUNERAL 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.BOARD FILLER [address] [place] [address] [facility] Neurology Comment on above: alonso Start: 05-22-2024 Covid-19 Vaccine ( season) Covid-19 Vaccine () [facility] Start: 05-22-2024 Influenza vaccination [facility] Start: 04-18-2024 End: 04-18-2024 Patient encounter procedure 04/18/2024 10:20 AM EDT Office Visit [facility] [address] [place] [address] PodKacie arnold FUNERAL 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.BOARD FILLER [address] [place] [address] follow up for alonso [facility] Comment on above: follow up for alonso Start: 04-08-2024 End: 04-08-2024 Patient encounter procedure 04/08/2024 11:00 AM EDT [facility] [address] [place] [address] Kianna Cabral, FUNERAL 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.BOARD FILLER [address] [place] [address] consult for alonso Neurology Comment on above: consult for alonso Start: 03-20-2024 Influenza vaccination Influenza Vacc ine (#1) [facility] Comment on above: Postponed from 05/22 (Declined at this time) Start: 09-21-2023 Advance Directive Discussion Advance Directive Discussion [facility] Start: 06-01-2023 Covid-19 Vaccine ( season) Covid-19 Vaccine () [facility] Start: 05-22-2023 Influenza vaccination C [facility] Start: 04-28-2023 End: 06-28-2023 Comprehensive metabolic 2000 panel - Serum or Plasma [facility] Work Phone: Comment on above: Expected: 04/28/2023 , Expires: 06/28/2023 Start: 12-10-2022 Screening for malign ant neoplasm of colon Colorectal Cancer Screening [facility] Start: 12-09-2022 Patient discharge [facility] Start: 12-01-2022 Colonoscopy COLONOSCOPY [facility] Start: 12-01-2022 COLORECTAL CANCER SCREENING COLORECTAL CANCER SCREENING [facility] Start: 12-01-2022 Screening for malign ant neoplasm of colon [facility] Start: 09-21-2022 ADVANCE DIRECTIVE DISCUSSION ADVANCE DIRECTIVE DISCUSSION [facility] Start: 07-08-2022 End: 09-07-2022 Comprehensive metabolic 2000 panel - Serum or Plasma COMP METABOLIC PANEL Lab Routine Hyperlipidemia, mixed Expected: 07/08/2022, Expires: 09/07/2022 [facility] Work Phone: Comment on above: Expected: 07/08/2022 , Expires: 09/07/2022 Start: 07-08-2022 End: 09-07-2022 Lipid 1996 panel - Serum or Plasma LIPID PANEL BASIC Lab Routine Hyperlipidemia, mixed Expected: 07/08/2022, Expires: 09/07/2022 [facility] Work Phone: Comment on above: Expected: 07/08/2022 , Expires: 09/07/2022 Start: 05-22-2022 Influenza vaccination INFLUENZA (#1) [facility] Start: 03-21-2022 End: 05-21-2022 Comprehensive metabolic 2000 panel - Serum or Plasma COMP METABOLIC PANEL Lab Routine Class 1 obesity due to excess calories without serious comorbidity with body mass index (BMI) of 33.0 to 33.9 in adult Expected: 03/21/2022, Expires: 05/21/2022 [facility] Work Phone: Comment on above: Expected: 03/21/2022 , Expires: 05/21/2022 Start: 03-21-2022 End: 05-21-2022 Lipid 1996 panel - Serum or Plasma LIPID PANEL BASIC Lab Routine Class 1 obesity due to excess calories without serious comorbidity with body mass index (BMI) of 33.0 to 33.9 in adult Expected: 03/21/2022, Expires: 05/21/2022 [facility] Work Phone: Comment on above: Expected: 03/21/2022 , Expires: 05/21/2022 Start: 10-18-2021 COVID-19 VACCINE (4 - Booster for Pfizer series) COVID-19 VACCINE (4 - Booster for Pfizer series) [facility] Start: 09-21-2021 ADVANCE DIRECTIVE DISCUSSION ADVANCE DIRECTIVE DISCUSSION [facility] Start: 2012 RSV Vaccine (1 - 1-d ose 60+ series) RSV Vaccine (1 - 1-dose 60+ series) [facility] Start: 11-10-2008 FECAL OCCULT BLOOD FECAL OCCULT BLOO D [facility] Start: 11-10-2008 Screening for malign ant neoplasm of colon Fecal Occult Blood [facility] Start: 1997 COLOGUARD (FIT-DNA) COLOGUARD (FIT-D NA) [facility] Start: [address] COLONOGRAPHY [facility] Start: 1997 Screening for malign ant neoplasm of colon [facility] Start: 1997 SIGMOIDOSCOPY SIGMOIDOSCOPY [facility] End: 12-27-2024 HOME SLEEP APNEA TEST (HSAT) HOME SLEEP APNEA TEST (HSAT) Procedures Routine Snoring Hypersomnia, unspecified 1 Occurrences starting 12/28/2023 until 12/27/2024 [facility] Work Phone: Comment on above: 1 Occurrences starti ng 12/28/2023 until 12/27/2024 End: 02-24-2025 PAP TITRATION PSG (CPAP, BIPAP, ASV) PAP TITRATION PSG (CPAP, BIPAP, ASV) Procedures Routine ALONSO (obstructive sleep apnea) 1 Occurrences starting 01/26/2024 until 02/24/2025 [facility] Work Phone: Comment on above: 1 Occurrences starti ng 01/26/2024 until 02/24/2025 Patient Education Bruises (Contu sions) ED Laceration, Hand: All Closures [facility] Work Phone: Patient referral [facility] Work Phone: [facility] Immunizations Immunization Date Immunization Notes Care Provider [facility] 07-04-2024 influenza virus vaccine, unspecified formulation Kacie Rodriguez FUNERAL 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.BOARD FILLER Work Phone: [facility] 07-12-2022 influenza, high-dose , quadrivalent vaccine (FLUZONE HIGH DOSE QUADRIVALENT) Immunization [place] Work Phone: [facility] 07-12-2022 influenza virus vaccine, unspecified formulation Kacie Rodriguez FUNERAL 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.BOARD FILLER Work Phone: [facility] 07-13-2021 influenza, high-dose , quadrivalent vaccine (FLUZONE HIGH DOSE QUADRIVALENT) Ada Velasco MD Work Phone: [facility] Work Phone: 12-13-2020 COVID-19 vaccine, ag e 12+ yr (PFIZER-BIONTECH - PURPLE TOP) Ada Velasco MD Work Phone: [facility] 11-22-2020 COVID-19 vaccine, ag e 12+ yr (PFIZER-BIONTECH - PURPLE TOP) Ada Velasco MD Work Phone: [facility] 09-04-2020 tetanus toxoid, redu andrew diphtheria toxoid, and acellular pertussis vaccine, adsorbed Ada Velasco MD Work Phone: [facility] 09-04-2020 zoster vaccine recombinant Ada Velasco MD Work Phone: [facility] 08-07-2020 pneumococcal polysaccharide vaccine, 23 valent Ada Velasco MD Work Phone: [facility] Work Phone: 07-14-2020 influenza, high-dose , quadrivalent vaccine (FLUZONE HIGH DOSE QUADRIVALENT) Ada Velasco MD Work Phone: [facility] 06-12-2020 zoster vaccine recombinant Ada Velasco MD Work Phone: [facility] 07-05-2019 influenza, injectabl e, quadrivalent, contains preservative Ada Velasco MD Work Phone: [facility] 07-09-2018 influenza, injectabl e, quadrivalent, contains preservative Ada Velasco MD Work Phone: [facility] Work Phone: 02-11-2018 pneumococcal conjuga te vaccine, 13 valent Ada Velasco MD Work Phone: [facility] 09-09-2017 influenza, injectabl e, quadrivalent, contains preservative Ada Velasco MD Work Phone: [facility] Work Phone: 06-27-2016 influenza, injectabl e, quadrivalent, contains preservative Ada Velasco MD Work Phone: [facility] Work Phone: 06-23-2015 influenza, injectabl e, quadrivalent, contains preservative Ada Velasco MD Work Phone: [facility] Work Phone: 07-05-2014 influenza, seasonal, injectable Ada Velasco MD Work Phone: [facility] 10-04-2013 zoster vaccine, live John Velasco MD Work Phone: [facility] 07-06-2013 influenza virus vaccine, unspecified formulation Ada Velasco MD Work Phone: [facility] 06-12-2012 influenza virus vaccine, unspecified formulation Ada Velasco MD Work Phone: [facility] Work Phone: 07-12-2011 influenza virus vaccine, unspecified formulation Ada Velasco MD Work Phone: [facility] Work Phone: 08-08-2010 tetanus and diphther ia toxoids, adsorbed, preservative free, for adult use (2 Lf of tetanus toxoid and 2 Lf of diphtheria toxoid) Ada Velasco MD Work Phone: [facility] 12-16-1998 diphtheria and tetan us toxoids, adsorbed for pediatric use Ada Velasco MD Work Phone: [facility] Payers Date Payer Category Payer Self-pay [id number] 2023 Private Health Insurance [id number] 2017 Medicare MEDICARE MEDICAR E A AND B [id number] 2017-Present [phone] [address] [address] [place] [address] Medicare [id number] 2017 Medicare [id number] 2017 Private Health Insurance [facility] AARP SUPPLEMENT [id number] 2017-Present [phone] [address] [place] [address] Indemnity [id number] 2017 Private Health Insurance [id number] 2017 Medicare [id number] 2017 Unknown [id number] 2011 Unknown [id number] 1952 Unknown [id number] Unknown [id number] Unknown [id number] Unknown [id number] Unknown [id number] Social History Date Type Detail Facility Start: 09-04-2011 End: 04-28-2023 Tobacco smoking status GAIS Ex-smoker [facility] Start: 08-12-2021 End: 12-26-2024 Alcohol intake Current drinker of alcohol (finding) [facility] Start: 03-19-2020 End: 10-08-2020 History SDOH Alcohol Frequency 2 [facility] Start: 03-19-2020 End: 10-08-2020 History SDOH Alcohol Std Drinks 1 [facility] Start: 03-27-2021 History SDOH Alcohol Comment 1-2 beers per month [facility] Start: 03-19-2020 History SDOH Social Connections Phone 5 [facility] Start: 03-19-2020 History SDOH Social Connections Get Together 3 [facility] Start: 03-19-2020 History SDOH Physical Activity DPW 0 [facility] Start: 03-19-2020 Education 12 [facility] Start: 09-04-2011 End: 04-28-2023 Tobacco Comment quit 1980 after 2 years of smoking [facility] Start: 1950 Sex Assigned At Not on file [facility] Start: 11-26-2021 End: 03-11-2022 Exposure to SARS-CoV-2 (event) Not sure [facility] Work Phone: Start: 03-11-2022 End: 12-05-2022 Tobacco smoking status [facility] Unknown if ever smoked [facility] Start: 1950 Sex Assigned At Male [facility] History of tobacco use Current smoker [facility] Start: 09-04-2011 End: 04-28-2023 Tobacco use and exposure Smokeless tobacco non-user [facility] Tobacco smoking status No Smokin g Status Entered [facility] Start: 03-19-2020 End: 04-28-2023 History of Social function [facility] Start: 03-19-2020 End: 04-28-2023 Social connection and isolation panel [facility] Do you belong to any clubs or organizations such as druze groups, unions, fraternal or athletic groups, or school groups? Yes [facility] Are you now , , , , never or living with a partner? [facility] How often to you hav e a drink containing alcohol? Monthly or less [facility] How many standard dr inks containing alcohol do you have on a typical day? 1 or 2 [facility] How often do you hav e 6 or more drinks on 1 occasion? Never [facility] Start: 08-22-2012 How hard is it for you to pay for the very basics like food, housing, medical care, and heating Not hard at all [facility] Do you feel stress - tense, restless, nervous, or anxious, or unable to sleep at night because your mind is troubled all the time - these days [OSQ] Not at all [facility] (I/We) worried wheth er (my/our) food would run out before (I/we) got money to buy more. Never true [facility] In the past 12 month s, was there a time when you were not able to pay the mortgage or rent on time? No [facility] Start: 02-29-2020 Gender identity Identifies as male gender (finding) [facility] Start: 03-19-2020 Sexual orientation Heterosexual (finding) [facility] How often do you hav e 6 or more drinks on 1 occasion? Less than monthly [facility] Work Phone: Goals Date Patient Goal Desired Activity /State Functional Status Date Assessment Result Facility 12-26-2024 Total score [AUDIT-C] 1 12/27/19 25 8:21 AM dAa Baird MD [facility] 11-04-2017 Are you deaf, or do you have serious difficulty hearing No 11/04/2017 9:32 AM Primo Villela III, MD [facility] 11-04-2017 Are you blind, or do you have serious difficulty seeing, even when wearing glasses No 11/04/2017 9:32 AM Primo Villela III, MD [facility] 11-04-2017 Do you have serious difficulty walking or climbing stairs No 11/04/2017 9:32 AM Primo Villela III, MD [facility] 11-04-2017 Do you have difficul ty dressing or bathing No 11/04/2017 9:32 AM Primo Villela III, MD [facility] 11-04-2017 Because of a physica l, mental, or emotional condition, do you have difficulty doing errands alone such as visiting a physician's office or shopping No 11/04/2017 9:32 AM Primo Villela III, MD [facility] Mental Status Date Assessment Result Facility 12-09-2022 Cognitive function Voice/Name [facility] Work Phone: 11-04-2017 Because of a physica l, mental, or emotional condition, do you have serious difficulty concentrating, remembering, or making decisions No 11/04/2017 9:32 AM Primo Villela III, MD [facility] Clinical Notes 08-06-2016 to 05-20-2025 Jensen Mcnamara MD - 05/20/2025 8:24 AM EDTTelephone Encounter - Laura Bennett MA - 04/21/2025 11:32 AM EDTTelephone Encounter - Laura Bennett MA - 04/21/2025 11:32 AM EDTPatient Instructions Note Date & Type Note Facility 05-20-2025 Note HNO ID: [id number] Author: JENSEN MCNAMARA MD Service: ? Author Type: Physician Type: Progress Notes Filed: 05/20/2025 08:29 Note Text: [facility] K[facility]ST[facility] Neville is a 74 year old male. Patient presents with: URI: Cough, fatigue, runny nose x 1 week Feeling sick for 1 week. Began feeling ill on the way home from vacation [place] He has had fatigue, cough, nasal congestion, rhinorrhea, sinus pressure. Coughing comes in spurts that last up to half an hour. He felt feverish a few days ago but has not been feeling feverish recently. Denies chest pain, shortness of breath, sore throat, nausea, vomiting, diarrhea. Primary concern is persistent cough which has not improved with yccr-snt-[id number] NyQuil, DayQuil, or Delsym (combo meds with acetaminophen tend to give him a headache with extended use). Denies any history of asthma, COPD, smoking, or lung disease. URI Review of Systems Objective BP 140/62 Pulse 85 Temp 37.3 ?C (99.2 ?F) Resp 20 Wt 115.5 kg (254 lb 10.1 oz) SpO2 95% BMI 35.29 kg/m? Physical Exam Constitutional: General: He is not in acute distress. Appearance: He is not ill-appearing. HENT: Right Ear: Tympanic membrane and ear canal normal. Left Ear: Tympanic membrane and ear canal normal. Nose: Congestion present. Mouth/Throat: Pharynx: Posterior oropharyngeal erythema present. Eyes: Extraocular Movements: Extraocular movements intact. Conjunctiva/sclera: Conjunctivae normal. Pupils: Pupils are equal, round, and reactive to light. Cardiovascular: Rate and Rhythm: Normal rate and regular rhythm. Heart sounds: No murmur heard. Pulmonary: Effort: No respiratory distress. Breath sounds: No wheezing, rhonchi or rales. Musculoskeletal: Cervical back: Neck supple. Lymphadenopathy: Cervical: No cervical adenopathy. Neurological: Mental Status: He is alert. {ASSESSMENT/PLAN: 1. Viral URI with cough - ICD9: 465.9, ICD10: J06.9 - suspect viral URI. - Supportive care treatment with rest, cold medicine, and analgesia. Add - BENZONATATE 100 MG CAPSULE Follow up with worsening cough, worsening shortness of breath, increasing chest pain, or late onset fever. Jensen Mcnamara MD History and Record Review Systemic symptoms present included: fever Differential Diagnoses - viral URI is more likely for the following reason(s): suggested by HANDP - pneumonia is less likely for the following reason(s): normal lung exam, resolution of fever Procedures [facility] 05-20-2025 History of Presen t illness Narrative [facility] Sotelo Jean Carlos Neville is a 74 year old male. Patient presents with: URI: Cough, fatigue, runny nose x 1 week Feeling sick for 1 week. Began feeling ill on the way home from vacation in [place] He has had fatigue, cough, nasal congestion, rhinorrhea, sinus pressure. Coughing comes in spurts that last up to half an hour. He felt feverish a few days ago but has not been feeling feverish recently. Denies chest pain, shortness of breath, sore throat, nausea, vomiting, diarrhea. Primary concern is persistent cough which has not improved with fhoh-bbz-cgbbxll NyQuil, DayQuil, or Delsym (combo meds with acetaminophen tend to give him a headache with extended use). Denies any history of asthma, COPD, smoking, or lung disease. URI Review of Systems Objective BP 140/62 Pulse 85 Temp 37.3 C (99.2 F) Resp 20 Wt 115.5 kg (254 lb 10.1 oz) SpO2 95% BMI 35.29 kg/m Physical Exam Constitutional: General: He is not in acute distress. Appearance: He is not ill-appearing. HENT: Right Ear: Tympanic membrane and ear canal normal. Left Ear: Tympanic membrane and ear canal normal. Nose: Congestion present. Mouth/Throat: Pharynx: Posterior oropharyngeal erythema present. Eyes: Extraocular Movements: Extraocular movements intact. Conjunctiva/sclera: Conjunctivae normal. Pupils: Pupils are equal, round, and reactive to light. Cardiovascular: Rate and Rhythm: Normal rate and regular rhythm. Heart sounds: No murmur heard. Pulmonary: Effort: No respiratory distress. Breath sounds: No wheezing, rhonchi or rales. Musculoskeletal: Cervical back: Neck supple. Lymphadenopathy: Cervical: No cervical adenopathy. Neurological: Mental Status: He is alert. {ASSESSMENT/PLAN: 1. Viral URI with cough - ICD9: 465.9, ICD10: J06.9 - suspect viral URI. - Supportive care treatment with rest, cold medicine, and analgesia. Add - BENZONATATE 100 MG CAPSULE Follow up with worsening cough, worsening shortness of breath, increasing chest pain, or late onset fever. Jensen Mcnamara MD History and Record Review Systemic symptoms present included: fever Differential Diagnoses - viral URI is more likely for the following reason(s): suggested by H&P - pneumonia is less likely for the following reason(s): normal lung exam, resolution of fever Procedures documented in this encounter [facility] 04-21-2025 Telephone encounter Note Prescription Refill Information The patient has been identified by name and date of : Yes Caregiver verified no other encounters exist for this prescription request: Yes Caregiver confirmed with patient/requestor that no other refills are due, in the near future, with this provider at this time: Yes The last office visit in the department: 12/26/2024 Does the patient have a future office visit with this provider/department: Yes Requested Prescriptions Pending Prescriptions Disp Refills citalopram (CELEXA) 20 mg tablet 90 tablet 0 Sig: Take 1 tablet by mouth once daily. Laura Bennett MA April 21, 2025 11:32 AM [facility] 04-21-2025 Miscellaneous Notes Prescription Refill Information The patient has been identified by name and date of : Yes Caregiver verified no other encounters exist for this prescription request: Yes Caregiver confirmed with patient/requestor that no other refills are due, in the near future, with this provider at this time: Yes The last office visit in the department: 12/26/2024 Does the patient have a future office visit with this provider/department: Yes Requested Prescriptions Pending Prescriptions Disp Refills citalopram (CELEXA) 20 mg tablet 90 tablet 0 Sig: Take 1 tablet by mouth once daily. Laura Bennett MA April 21, 2025 11:32 AM documented in this encounter [facility] 02-14-2025 Telephone encounter Note Prescription Refill Information The patient has been identified by name and date of : Yes Caregiver verified no other encounters exist for this prescription request: Yes Caregiver confirmed with patient/requestor that no other refills are due, in the near future, with this provider at this time: Yes The last office visit in the department: 12/26/24 Does the patient have a future office visit with this provider/department: Yes, 06/27/25 Requested Prescriptions Pending Prescriptions Disp Refills citalopram (CELEXA) 20 mg tablet 90 tablet 0 Sig: Take 1 tablet by mouth once daily. Bassam Redman LPN February 14, 2025 10:34 AM [facility] 02-14-2025 Miscellaneous Notes Prescription Refill Information The patient has been identified by name and date of : Yes Caregiver verified no other encounters exist for this prescription request: Yes Caregiver confirmed with patient/requestor that no other refills are due, in the near future, with this provider at this time: Yes The last office visit in the department: 12/26/24 Does the patient have a future office visit with this provider/department: Yes, 06/27/25 Requested Prescriptions Pending Prescriptions Disp Refills citalopram (CELEXA) 20 mg tablet 90 tablet 0 Sig: Take 1 tablet by mouth once daily. Bassam Redman LPN February 14, 2025 10:34 AM documented in this encounter [facility] 12-29-2024 Telephone encounter Note Phoned patient and spoke with his regarding results. She voiced understanding and will advise patient. Karen Lee LPN [facility] 12-29-2024 Miscellaneous Notes Phoned patient and spoke with his regarding results. She voiced understanding and will advise patient. Karen Lee LPN ----- Message from Ada Velasco MD sent at 12/29/2024 9:24 AM EDT ----- Normal labs. No change in regimen. documented in this encounter [facility] 12-29-2024 Telephone encounter Note ----- Message from Ada Velasco MD sent at 12/29/2024 9:24 AM EDT ----- Normal labs. No change in regimen. [facility] 12-29-2024 Telephone encounter Note Patient's calls asking about the status of this request. Notified that order was placed. Called to Lab and spoke with Vikash. Adding the lipid panel to labs that were done. Kianna Chicas RN [facility] 12-29-2024 Miscellaneous Notes Patient's calls asking about the status of this request. Notified that order was placed. Called to Lab and spoke with Vikash. Adding the lipid panel to labs that were done. Kianna Chicas RN New order placed. Can lab be added to drawn blood work or would he have to come back? Ordered under medicare wellness which is what they were in office for that day. Patient's calls and states that patient had labs drawn this morning. Lipid panel was not drawn because expected date was listed as 03/27/2025. Patient asking if this can be added on to lab drawn that was done this morning and if provider can fix order. also asking if diagnosis for lab can be changed to hyperlipoidemia so that it will be covered through medicare? Patient has been on simvastatin. Please review and advise, Kianna Chicas RN documented in this encounter [facility] 12-29-2024 Telephone encounter Note New order placed. Can lab be added to drawn blood work or would he have to come back? Ordered under medicare wellness which is what they were in office for that day. [facility] 12-28-2024 Telephone encounter Note Patient's calls and states that patient had labs drawn this morning. Lipid panel was not drawn because expected date was listed as 03/27/2025. Patient asking if this can be added on to lab drawn that was done this morning and if provider can fix order. also asking if diagnosis for lab can be changed to hyperlipoidemia so that it will be covered through medicare? Patient has been on simvastatin. Please review and advise, Kianna Chicas RN [facility] 12-26-2024 Instructions Karen Lee LPN - 12/26/2024 8:05 AM EDT Screening schedule The following prevention plan is recommended: Colorectal Cancer Screening due on 12/10/2022 Advance Directive Discussion Never done Covid-19 Vaccine( season) due on 12/12/2024 WHAT YOU CAN DO TO PREVENT FALLS Many falls can be prevented. By making some changes, you can lower your chances of falling. Four things YOU can do to prevent falls for you* and your caregiver 1. Begin a regular exercise program Exercise is one of the most important ways to lower your chances of falling. It makes you stronger and helps you feel better. Exercises that improve balance and coordination (like Louie Chi) are the most helpful. Lack of exercise leads to weakness and increases your chances of falling. Ask your doctor or health care provider about the best type of exercise program for you. 2. Have your health care provider review your medicines Have your doctor or pharmacist review all the medicines you take, even tzrp-hfe-efdrxzt medicines. As you get older, the way medicines work in your body can change. Some medicines, or combinations of medicines, can make you sleepy or dizzy and can cause you to fall. 3. Have your vision checked Have your eyes checked by an eye doctor at least once a year. You may be wearing the wrong glasses or have a condition like glaucoma or cataracts that limits your vision. Poor vision can increase your chances of falling. 4. Make your home safer About half of all falls happen at home. To make your home safer: Remove things you can trip over (like papers, books, clothes, and shoes) from stairs and places where you walk. Remove small throw rugs or use double-sided tape to keep the rugs from slipping. Keep items you use often in cabinets you can reach easily without using a step stool. Have grab bars put in next to your toilet and in the tub or shower. Use non-slip mats in the bathtub and on shower floors. Improve the lighting in your home. As you get older, you need brighter lights to see well. Hang light-weight curtains or shades to reduce glare. Have handrails and lights put in on all staircases. Wear shoes both inside and outside the house. Avoid going barefoot or wearing slippers. For more information, contact: Centers for Disease Control and Prevention www.cdc.gov/injury * This information may not apply if you have certain medical conditions. documented in this encounter [facility] 12-26-2024 Note HNO ID: [id number] Author: ADA VELASCO MD Service: ? Author Type: Physician Type: Progress Notes Filed: 12/26/2024 09:05 Note Text: Jean Carlos Neville is a 74 year old male here for a Medicare wellness visit. Patient has been in good health without recent hospitalizations, ER visits, no falls. No concerns today. Accompanied today by . Up to date on colon cancer screening with colonoscopy in 2022. Repeat in 2027. Due for repeat labs. Refusing COVID booster today. Medicare Health Risk Assessment General Health Excellent Exercise: Minutes/Day 0 min Exercise: Days/Week 0 days Alcohol: Daily Use Monthly or less Alcohol: Drinks/Day 1 or 2 Alcohol: 6 or more drinks Never Feel off balance No Concerns: Teeth/Dentures No Concerns: Sexual function No Troubled by feelings None of the above Frequency: Eating healthy diet Several days ADLs requiring help None of the above Safety precautions in home/vehicle No (Throw rugs) Smoke, vape, chews tobacco No Difficulty hearing No Difficulty seeing No Current Providers Specialists: I have reviewed specialist-related care of the patient in the medical record. Current care team: Patient Care Team: Ada Velasco MD as PCP - General (Family Medicine) Podlogar, HERIBERTO Hester.JYOTI as [employer] (Family Medicine) Sendy Hernandez APRN.CNP as [employer] (Family Medicine) Outside specialists seen: Dr. Kathleen, Dr. Miller, Dr. Lagos-[facility] Medical/Family history review Reviewed and updated problem list, medical/surgical/family/social history, medications, and allergies. Opioid use review Opioid Medications (last 90 days) No data to display Anxiety/Depression screening (Lower risk for depression) (Lower risk for anxiety) Recommendation: no further intervention at this time Cognitive screening Mini Cog Score: 5 Cognitive screening reviewed and No further action needed (score 3-5). Functional Observation Was the patient's Timed Up AND Go test unsteady or >= 12 seconds? No Advance Care Planning Patient did not wish or was not able to name a surrogate decision maker or provide an advance care plan FULL CODE Measurements BP 130/64 Pulse 66 Resp 16 Wt 121.6 kg (268 lb) SpO2 98% BMI 37.15 kg/m? Vision Screening: Right: 20/100 Left: 20/ 40 Both: 20/40 Uncorrected Assessment/Plan ASSESSMENT/PLAN: 1. Medicare annual wellness visit, subsequent - ICD9: V70.0, ICD10: Z00.00 (primary diagnosis) - Counseled on healthy diet and regular exercise - Fall avoidance information provided - Personalized prevention plan provided - COMPLETE BLOOD COUNT AND DIFFERENTIAL - COMPREHENSIVE METABOLIC PANEL - HEMOGLOBIN A1C - THYROID STIMULATING HORMONE - LIPID PANEL, FASTING 2. Decreased visual acuity - ICD9: 369.9, ICD10: H54.7 Noted on exam today. Did not have his glasses with him. F/u with [facility] for vision concerns. Ada Velasco MD [facility] 12-26-2024 History of Presen t illness Narrative Images from the original note were not included. Jean Carlos Neville is a 74 year old male here for a Medicare wellness visit. Patient has been in good health without recent hospitalizations, ER visits, no falls. No concerns today. Accompanied today by . Up to date on colon cancer screening with colonoscopy in 2022. Repeat in 2027. Due for repeat labs. Refusing COVID booster today. Medicare Health Risk Assessment General Health Excellent Exercise: Minutes/Day 0 min Exercise: Days/Week 0 days Alcohol: Daily Use Monthly or less Alcohol: Drinks/Day 1 or 2 Alcohol: 6 or more drinks Never Feel off balance No Concerns: Teeth/Dentures No Concerns: Sexual function No Troubled by feelings None of the above Frequency: Eating healthy diet Several days ADLs requiring help None of the above Safety precautions in home/vehicle No (Throw rugs) Smoke, vape, chews tobacco No Difficulty hearing No Difficulty seeing No Current Providers Specialists: I have reviewed specialist-related care of the patient in the medical record. Current care team: Patient Care Team: Ada Velasco MD as PCP - General (Family Medicine) PodlogarKacie APRN.CNP as [employer] (Family Medicine) Sendy Hernandez APRN.CNP as [employer] (Family Medicine) Outside specialists seen: Dr. Kathleen, Dr. Miller, Dr. Lagos-[facility] Medical/Family history review Reviewed and updated problem list, medical/surgical/family/social history, medications, and allergies. Opioid use review Opioid Medications (last 90 days) No data to display Anxiety/Depression screening (Lower risk for depression) (Lower risk for anxiety) Recommendation: no further intervention at this time Cognitive screening Mini Cog Score: 5 Cognitive screening reviewed and No further action needed (score 3-5). Functional Observation Was the patient's Timed Up & Go test unsteady or >= 12 seconds? No Advance Care Planning Patient did not wish or was not able to name a surrogate decision maker or provide an advance care plan FULL CODE Measurements BP 130/64 Pulse 66 Resp 16 Wt 121.6 kg (268 lb) SpO2 98% BMI 37.15 kg/m Vision Screening: Right: 20/100 Left: 20/ 40 Both: 20/40 Uncorrected Assessment/Plan ASSESSMENT/PLAN: 1. Medicare annual wellness visit, subsequent - ICD9: V70.0, ICD10: Z00.00 (primary diagnosis) - Counseled on healthy diet and regular exercise - Fall avoidance information provided - Personalized prevention plan provided - COMPLETE BLOOD COUNT AND DIFFERENTIAL - COMPREHENSIVE METABOLIC PANEL - HEMOGLOBIN A1C - THYROID STIMULATING HORMONE - LIPID PANEL, FASTING 2. Decreased visual acuity - ICD9: 369.9, ICD10: H54.7 Noted on exam today. Did not have his glasses with him. F/u with optho for vision concerns. Ada Velasco MD documented in this encounter [facility] 12-07-2024 Telephone encounter Note Prescription Refill Information The patient has been identified by name and date of : Yes Caregiver verified no other encounters exist for this prescription request: Yes Caregiver confirmed with patient/requestor that no other refills are due, in the near future, with this provider at this time: Yes The last office visit in the department: 04/19/24 Does the patient have a future office visit with this provider/department: Yes-12/26/24 Requested Prescriptions Pending Prescriptions Disp Refills simvastatin (ZOCOR) 10 mg tablet 90 tablet 1 Sig: Take 1 tablet by mouth daily at bedtime. For cholesterols. Karen Lee LPN December 07, 2024 7:06 AM [facility] 12-07-2024 Miscellaneous Notes Prescription Refill Information The patient has been identified by name and date of : Yes Caregiver verified no other encounters exist for this prescription request: Yes Caregiver confirmed with patient/requestor that no other refills are due, in the near future, with this provider at this time: Yes The last office visit in the department: 04/19/24 Does the patient have a future office visit with this provider/department: Yes-12/26/24 Requested Prescriptions Pending Prescriptions Disp Refills simvastatin (ZOCOR) 10 mg tablet 90 tablet 1 Sig: Take 1 tablet by mouth daily at bedtime. For cholesterols. Karen Lee LPN December 07, 2024 7:06 AM documented in this encounter [facility] 11-16-2024 Telephone encounter Note Prescription Refill Information The patient has been identified by name and date of : Yes Caregiver verified no other encounters exist for this prescription request: Yes Caregiver confirmed with patient/requestor that no other refills are due, in the near future, with this provider at this time: Yes The last office visit in the department: 04/19/24 Does the patient have a future office visit with this provider/department: Yes Requested Prescriptions Pending Prescriptions Disp Refills citalopram (CELEXA) 20 mg tablet 90 tablet 0 Sig: Take 1 tablet by mouth once daily. Max Caballero LPN November 16, 2024 7:42 AM [facility] 11-16-2024 Miscellaneous Notes Prescription Refill Information The patient has been identified by name and date of : Yes Caregiver verified no other encounters exist for this prescription request: Yes Caregiver confirmed with patient/requestor that no other refills are due, in the near future, with this provider at this time: Yes The last office visit in the department: 04/19/24 Does the patient have a future office visit with this provider/department: Yes Requested Prescriptions Pending Prescriptions Disp Refills citalopram (CELEXA) 20 mg tablet 90 tablet 0 Sig: Take 1 tablet by mouth once daily. Max Caballero LPN November 16, 2024 7:42 AM documented in this encounter [facility] 08-03-2024 Nurse Note Faxed patient's CPAP order to [facility]. Lorena Cardenas MA [facility] 08-03-2024 Nurse Note Faxed patient's CPAP order to [facility]. Lorena Cardenas MA documented in this encounter [facility] 08-03-2024 Instructions Harvey Tesfaye APRN.BOARD FILLER - 08/03/2024 9:10 AM EST Potential CPAP Issues and Ideas on How to Fix Them Getting Used to the Mask The more you wear it, the more you will get used to it Try wearing it while awake, such as when watching TV On average, it takes 4-6 weeks to get used to PAP therapy Tolerating Air Pressure As mentioned above, it takes 4-6 weeks on average to get used to PAP therapy Use the ramp feature: your machine will give you a lower pressure for the first 20-45 minutes each night Consider lower pressure temporarily We might need to consider BiPAP instead of CPAP (with BiPAP, you breathe out against a lower pressure) Mask Leaks Use a smaller and/or softer pillow, such as a travel pillow or a special CPAP pillow Mask refitting with your [employer] company You shouldn't have to pull straps tight Try REMzzz or other mask liners Follow cleaning instructions Wash face nightly Replace mask cushion as often as allowed per your insurance Position your tubing so it goes over your head Dry Mouth Increase humidity Chin strap Fix leaks Biotene Heated tubing Preheat distilled water, especially in winter Trouble Falling Asleep/Claustrophobia Practice wearing your mask for short periods of time, out of bed, not attached to hose. Then attach to hose with air while awake. Use ramp feature Relaxation Stuffy Nose Fix leaks Nasal steroid spray or saline spray/gel Increase heated humidity Allergies Take a shower before bed Keep windows closed at night Wash bedding frequently Use a fine particulate filter for your machine Use a HEPA filter in your home Saline spray or gel for your nose Use a full face mask Taking Mask Off in Night This will get better over time Treat any nose stuffiness Set an alarm to check Gas and Bloating Use a chin strap no matter what type of mask you are using to minimize air swallowing Make sure nose isn't stuffy Elevated legs at head of bed Try Gas-X at bedtime Try sleeping on your side Try a different mask Lengthen ramp time Consider switch to BiPAP Lund on Skin Don't over tighten mask Try REMzzz or other mask liners Try a softer mask Have a mask refitting appointment with your [employer] company Follow cleaning instructions for mask cushion Stomach Sleeper Requires a lot of patience and persistence Don't sleep with your face buried in the pillow since you could cover the exhalation port and allow carbon dioxide build-up Use a CPAP pillow Headaches Mask may be pulled too tight May be sinus related May need pressure decreased until acclimated May need heated humidifier Have a cold? Use a full face mask when you have a cold Breathe through your mouth with the full face mask documented in this encounter [facility] 08-03-2024 History of Presen t illness Narrative Images from the original note were not included. [facility] New Patient Evaluation PATIENT NAME: Jean Carlos Neville DATE OF SERVICE: August 02, 2024 CONSULTING PROVIDER: Kacie Rodriguez [id number] [facility] [id number] REASON FOR CONSULT: Kacie Rodriguez sends the patient for an opinion about ALONSO. My findings and recommendations will be transmitted electronically via shared medical record to the consulting provider. HPI: Jean Carlos Neville is a 73 year old male. Accompanied by his . Sleep-related history: diagnosed with severe ALONSO in 12/2023. He awoke one morning choking, unable to breathe, that led to the diagnosis of ALONSO. He committed to using PAP therapy, he has adjusted well to it. Benefits to PAP: feels refreshed in the morning, fewer naps. Snoring is mostly abolished. He and his note increased mask leaks over time. Wakes him when his jaw drops and he gets leak from bottom of mask but otherwise leaks done bother him. hears leaks when he's on his back typically. Has hybrid FFM, Mike. Changes cushion monthly. AHI is normalized. SLEEP-WAKE SCHEDULE Bedtime: 11 PM. He does not have a hard time falling asleep. Takes 15-30 min. Wake time: 6-7 AM, without an alarm. After falling asleep: he does not usually wake up during the night. On weekends, he maintains the same sleep schedule. Average total sleep time (in a 24 hour period): 6 hours. SLEEP-RELATED DETAILS Preferred sleep position: side or back Breathing disturbances and other behaviors during sleep: snoring. Bruxism: No GERD or aspiration: No (used to) Waking up with heart pounding or racing: No Anxiety or rumination: No He reports having an urge to move the legs. The urge to move the legs only occurs in the evening or nighttime. The urge to move the legs begins or worsens during periods of rest or inactivity (e.g. lying or sitting). The urge to move the legs is partially or totally relieved by movements such as walking or stretching, at least as long as the activity continues. The urge to move the legs occurs 1 nights per week and began 1 years ago. There is no history of iron deficiency or anemia. He has not been told that he has leg kicking during sleep. He denies any history of parasomnias. Daytime sleepiness is not a problem. He does not report sleep paralysis or sleep-related hallucinations or cataplexy WAKE-RELATED DETAILS He works but is not a shift worker. 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 He does not have difficulty with memory or concentration. He denies falling asleep or dozing off when driving. He does take naps but shorter and fewer than before PAP He does drink 2 caffeinated beverages per day. Gained wt after knee surgery, now working on losing it. Patient Questionnaires Sleep Scores 07/31/2024 Sleep Questions Reason for visit: Sleep apnea Average hours of CPAP per night: 6 Percent of nights CPAP used at least 4 hours: 100 Accidents or near accidents due to drowsy drivin 07/31/2024 [place] Sleepiness Scale Score 5 (No clinically significant daytime sleepiness) 07/31/2024 PROMIS CAT Sleep Disturbance PROMIS Sleep Disturbance T-Score 44 (within normal limits) PROMIS Sleep Disturbance Percentile 73 07/31/2024 Restless Leg Syndrome Score 8 (Mild Symptoms) 07/31/2024 PHQ-9 Score 0 07/31/2024 PROMIS Global Health - (T-Scores - the mean of general population = 50. Five points is a clinically meaningful difference.) Physical T-Score 54.1 Mental T-Score 67.6 PAST TREATMENTS: CPAP 12 cmH2O DME [facility] PRIOR SLEEP STUDIES: A Home Sleep Test (HST) performed on 01/19/24 revealed an AHI of 62; supine index of 51; and a minimum oxygen saturation of 78%. 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 Rodriguez Unspecified hemorrhoids without mention of complication Hemorrhoids PAST SURGICAL HISTORY Procedure Laterality Date COLONOSCOPY FLX DX W/COLLJ SPEC WHEN PFRMD 01/12/2008 Repeat in COLONOSCOPY FLX DX W/COLLJ SPEC WHEN PFRMD 10/26/2012 Colonoscopy [facility] outpt COLONOSCOPY FLX DX W/COLLJ SPEC WHEN PFRMD [facility] FLX W/RMVL OF TUMOR POLYP LESION SNARE TQ 03/21/2004 hyperplastic polp ESOPHAGOGASTRODUODENOSCOPY TRANSORAL DIAGNOSTIC 10/26/2012 EGD [facility] outpt H-pylori negative ESOPHAGOGASTRODUODENOSCOPY TRANSORAL DIAGNOSTIC 12/01/2017 [facility] EXCISION PILONIDAL CYST/SINUS SIMPLE Excision pilonidal cyst PAST SURGICAL HISTORY OF Bilateral 2019 corneal transplants PAST SURGICAL HISTORY OF Bilateral hip surgery, childhood POST-CATARACT LASER SURGERY Left REMV CATARACT EXTRACAP,INSERT LENS Bilateral ACTIVE PROBLEM LIST Personal History of Colonic Polyps Dysmetabolic Syndrome X Carpal Tunnel Syndrome Esophageal Reflux Family History of Malignant Neoplasm of Gastrointestinal Tract Palpitations Ed (Erectile Dysfunction) Decreased Libido Irritability and Anger Class 1 Obesity Due to Excess Calories Without Serious Comorbidity With Body Mass Index (Bmi) of 33.0 to 33.9 in Adult Anxiety With Depression Allergies As of Date: 08/03/2024 (No Known Allergies) Fully Assessed 08/03/2024 CURRENT MEDICATIONS: citalopram (CELEXA) 20 mg tablet Take 1 tablet by mouth once daily. simvastatin (ZOCOR) 10 mg tablet Take 1 tablet by mouth daily at bedtime. For cholesterols. lutein 10 mg tab Take 10 mg by mouth once daily. CPAP/BIPAP/OTHER autoCPAP 12-15 cmH2O DME [facility] Review of Systems Constitutional: Negative for fatigue and recent unintentional weight change. HENT: Positive for congestion. Cardiovascular: Negative for palpitations. Gastrointestinal: Negative for heartburn. Genitourinary: Negative for nocturia. Neurological: Negative for headaches and memory loss. SOCIAL HISTORY: Social History Tobacco Use Smoking status: Former Smokeless tobacco: Never Tobacco comments: quit 1979 after 2 years of smoking Substance Use Topics Alcohol use: Yes Comment: 1-2 beers per month Drug use: No FAMILY HISTORY: FAMILY HISTORY Problem Relation Age of Onset Hypertension Mother Colon Cancer Father Diabetes Father Cancer Father LUNG Neuropathy Sister Cancer Brother melanoma Hypertension Brother There is a family history of: Sleep apnea. Relative: brother PHYSICAL EXAMINATION: Vital Signs: BP 130/69 Pulse 71 Resp 16 Wt 123.2 kg (271 lb 9.6 oz) BMI 37.65 kg/m PHYSICAL EXAM: General appearance: pleasant, NAD Mental status: alert and oriented, able to provide own history Constitutional: obese Skin: No visible rashes on exposed skin Neuro: No focal deficits observed, no tremors IMPRESSION/PLAN: G47.33 ALONSO (obstructive sleep apnea) (primary encounter diagnosis) G25.81 RLS (restless legs syndrome) Jean Carlos Neville is a 73 year old male with severe ALONSO, RLS, anxiety with depression, obesity, dysmetabolic syndrome X, esophageal reflux. He has adapted well to using CPAP. Leaks have increased over time--they do wake up his . He has mild RLS in the evening before bed, might have improved with PAP, definitely less bothersome if he avoids eating sugar. --Patient is compliant with PAP therapy and reports subjective benefits from treatment (wakes up refreshed, fewer naps) --We reviewed PAP compliance report; AHI is normalized (1.5) - Continue CPAP but change to auto setting 12-15 [id number]--[id number] on his titration study, he had REM at 14 and 15 cmH2O (I changed it in the office), will see if that helps with leaks. Discussed ways of preventing leaks, see AVS. I'll get a download in a month, send TR[employer] msg ( does mychart for him). - Remember to clean your mask and equipment regularly, as directed. - You should be eligible for new supplies approximately every 3-6 months, depending on your insurance coverage. Contact your Durable Medical Equipment (DME) company for new supplies as needed. - Follow up in 12 months with KATHERINE. Harvey Tesfaye APRN.CNP I spent a total of 47 minutes on the date of the service which included preparing to see the patient, [id number] patient care, completing clinical documentation, obtaining and/or reviewing separately obtained history, counseling and educating the patient/family/caregiver, and ordering medications, tests, or procedures. documented in this encounter [facility] 08-03-2024 Note HNO ID: [id number] Author: HARVEY TESFAYE APRN.CNP Service: ? Author Type: Nurse Practitioner Type: Progress Notes Filed: 08/03/2024 09:59 Note Text: [facility] New Patient Evaluation PATIENT NAME: Jean Carlos Neville DATE OF SERVICE: August 02, 2024 CONSULTING PROVIDER: Kacie Rodriguez [id number] [facility] [address] REASON FOR CONSULT: Kacie Rodriguez sends the patient for an opinion about ALONSO. My findings and recommendations will be transmitted electronically via shared medical record to the consulting provider. HPI: Jean Carlos Neville is a 73 year old male. Accompanied by his . Sleep-related history: diagnosed with severe ALONSO in 12/2023. He awoke one morning choking, unable to breathe, that led to the diagnosis of ALONSO. He committed to using PAP therapy, he has adjusted well to it. Benefits to PAP: feels refreshed in the morning, fewer naps. Snoring is mostly abolished. He and his note increased mask leaks over time. Wakes him when his jaw drops and he gets leak from bottom of mask but otherwise leaks done bother him. hears leaks when he's on his back typically. Has hybrid FFM, Mike. Changes cushion monthly. AHI is normalized. SLEEP-WAKE SCHEDULE Bedtime: 11 PM. He does not have a hard time falling asleep. Takes 15-30 min. Wake time: 6-7 AM, without an alarm. After falling asleep: he does not usually wake up during the night. On weekends, he maintains the same sleep schedule. Average total sleep time (in a 24 hour period): 6 hours. SLEEP-RELATED DETAILS Preferred sleep position: side or back Breathing disturbances and other behaviors during sleep: snoring. Bruxism: No GERD or aspiration: No (used to) Waking up with heart pounding or racing: No Anxiety or rumination: No He reports having an urge to move the legs. The urge to move the legs only occurs in the evening or nighttime. The urge to move the legs begins or worsens during periods of rest or inactivity (e.g. lying or sitting). The urge to move the legs is partially or totally relieved by movements such as walking or stretching, at least as long as the activity continues. The urge to move the legs occurs 1 nights per week and began 1 years ago. There is no history of iron deficiency or anemia. He has not been told that he has leg kicking during sleep. He denies any history of parasomnias. Daytime sleepiness is not a problem. He does not report sleep paralysis or sleep-related hallucinations or cataplexy WAKE-RELATED DETAILS He works but is not a shift worker. 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 He does not have difficulty with memory or concentration. He denies falling asleep or dozing off when driving. He does take naps but shorter and fewer than before PAP He does drink 2 caffeinated beverages per day. Gained wt after knee surgery, now working on losing it. Patient Questionnaires Sleep Scores 07/31/2024 Sleep Questions Reason for visit: Sleep apnea Average hours of CPAP per night: 6 Percent of nights CPAP used at least 4 hours: 100 Accidents or near accidents due to drowsy drivin 07/31/2024 [place] Sleepiness Scale Score 5 (No clinically significant daytime sleepiness) 07/31/2024 PROMIS CAT Sleep Disturbance PROMIS Sleep Disturbance T-Score 44 (within normal limits) PROMIS Sleep Disturbance Percentile 73 07/31/2024 Restless Leg Syndrome Score 8 (Mild Symptoms) 07/31/2024 PHQ-9 Score 0 07/31/2024 PROMIS Global Health - (T-Scores - the mean of general population = 50. Five points is a clinically meaningful difference.) Physical T-Score 54.1 Mental T-Score 67.6 PAST TREATMENTS: CPAP 12 cmH2O DME [employer] PRIOR SLEEP STUDIES: A Home Sleep Test (HST) performed on 01/19/24 revealed an AHI of 62; supine index of 51; and a minimum oxygen saturation of 78%. 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 Rodriguez Unspecified hemorrhoids without mention of complication Hemorrhoids PAST SURGICAL HISTORY Procedure Laterality Date COLONOSCOPY FLX DX W/COLLJ SPEC WHEN PFRMD 01/12/2008 Repeat in COLONOSCOPY FLX DX W/COLLJ SPEC WHEN PFRMD 10/26/2012 Colonoscopy [facility] outpt COLONOSCOPY FLX DX W/COLLJ SPEC WHEN PFRMD [facility]more content not included)... [facility] 07-28-2024 Telephone encounter Note Prescription Refill Information The patient has been identified by name and date of : Yes Caregiver verified no other encounters exist for this prescription request: Yes Caregiver confirmed with patient/requestor that no other refills are due, in the near future, with this provider at this time: Yes The last office visit in the department: 04/19/24 Does the patient have a future office visit with this provider/department: Yes 12/26/24 Requested Prescriptions Pending Prescriptions Disp Refills citalopram (CELEXA) 20 mg tablet 90 tablet 0 Sig: Take 1 tablet by mouth once daily. Ofelia Neumann LPN July 28, 2024 2:52 PM [facility] 07-28-2024 Miscellaneous Notes Prescription Refill Information The patient has been identified by name and date of : Yes Caregiver verified no other encounters exist for this prescription request: Yes Caregiver confirmed with patient/requestor that no other refills are due, in the near future, with this provider at this time: Yes The last office visit in the department: 04/19/24 Does the patient have a future office visit with this provider/department: Yes 12/26/24 Requested Prescriptions Pending Prescriptions Disp Refills citalopram (CELEXA) 20 mg tablet 90 tablet 0 Sig: Take 1 tablet by mouth once daily. Ofelia Neumann LPN July 28, 2024 2:52 PM documented in this encounter [facility] 06-13-2024 Telephone encounter Note Prescription Refill Information The patient has been identified by name and date of : Yes Caregiver verified no other encounters exist for this prescription request: Yes Caregiver confirmed with patient/requestor that no other refills are due, in the near future, with this provider at this time: Yes The last office visit in the department: 04/19/24 Does the patient have a future office visit with this provider/department: Yes, 12/26/24 Requested Prescriptions Pending Prescriptions Disp Refills simvastatin (ZOCOR) 10 mg tablet 90 tablet 1 Sig: Take 1 tablet by mouth daily at bedtime. For cholesterols. Bassam Redman LPN June 13, 2024 6:22 PM [facility] 06-13-2024 Miscellaneous Notes Prescription Refill Information The patient has been identified by name and date of : Yes Caregiver verified no other encounters exist for this prescription request: Yes Caregiver confirmed with patient/requestor that no other refills are due, in the near future, with this provider at this time: Yes The last office visit in the department: 04/19/24 Does the patient have a future office visit with this provider/department: Yes, 12/26/24 Requested Prescriptions Pending Prescriptions Disp Refills simvastatin (ZOCOR) 10 mg tablet 90 tablet 1 Sig: Take 1 tablet by mouth daily at bedtime. For cholesterols. Bassam Redman LPN June 13, 2024 6:22 PM documented in this encounter [facility] 05-05-2024 Telephone encounter Note [facility]-04/19/24 Labs-04/28/23Jul-12/26/24 Ofelia Neumann LPN [facility] 05-05-2024 Miscellaneous Notes [facility]-04/19/24 Labs-04/28/23Jul-12/26/24 Ofelia Neumann LPN documented in this encounter [facility] 04-19-2024 Telephone encounter Note Today's OV note faxed to [facility]. Laura Olivas MA [facility] 04-19-2024 Miscellaneous Notes Today's OV note faxed to [facility]. Laura Olivas MA Please fax today's office note to [employer]. Kacie Rodriguez APRN.CNP documented in this encounter [facility] 04-19-2024 Telephone encounter Note Please fax today's office note to [facility]. Kacie Rodriguez APRN.CNP [facility] 04-19-2024 History of Presen t illness Narrative 04/19/2024 Patient presents with: Recheck: ALONSO SUBJECTIVE: This is a 73 year old that is here today for Above Complaints. ALONSO: started on CPAP at last visit after sleep study showed severe sleep apnea. Had appointment with sleep medicine but it was canceled and rescheduled for 06/17/2024. Using CPAP every night about 7-8 hours.Did travel once and did not use it. He thinks he sleeps better. Not as much daytime fatigue or drowsiness. Feels more rested overall. PAST MEDICAL HISTORY Diagnosis Date Anxiety with depression Class 1 obesity due to excess calories without serious comorbidity with body mass index (BMI) of 33.0 to 33.9 in adult Diarrhea Diverticulosis of colon (without mention of hemorrhage) Diverticulosis ED (erectile dysfunction) 09/04/2011 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 Rodriguez Unspecified hemorrhoids without mention of complication Hemorrhoids ALLERGIES Patient has no known allergies. MEDICATIONS Current Outpatient Medications Medication Sig citalopram (CELEXA) 20 mg tablet Take 1 tablet by mouth once daily. simvastatin (ZOCOR) 10 mg tablet Take 1 tablet by mouth daily at bedtime. For cholesterols. cholecalciferol (VITAMIN D) 1,000 unit tab tablet Take 1,000 Units by mouth once daily. lutein 10 mg tab Take 10 mg by mouth once daily. No current facility-administered medications for this visit. Medications and allergies reviewed by this provider. SOCIAL HISTORY Social History Tobacco Use Smoking status: Former Smokeless tobacco: Never Tobacco comments: quit 1979 after 2 years of smoking Substance Use Topics Alcohol use: Yes Comment: 1-2 beers per month Drug use: No REVIEW OF SYSTEMS All other reviewed and negative other than HPI. OBJECTIVE: BP 132/72 Pulse 69 Resp 18 Wt 126.7 kg (279 lb 6.4 oz) SpO2 95% BMI 38.73 kg/m . Vital signs reviewed by this provider. APPEARANCE Well appearing, alert, in no acute distress, well-hydrated, well nourished. EYES conjunctiva and sclera normal. HEART RRR with normal S1 and S2, no murmurs, no gallops, no JVD appreciated LUNG clear to auscultation. No wheezes, rhonchi or rales SKIN Skin color, texture, turgor normal, no suspicious rashes or lesions to exposed skin RSV Vaccine(1 - 1-dose 60+ series) Never done Colorectal Cancer Screening due on 12/10/2022 Advance Directive Discussion Never done Covid-19 Vaccine(2022- season) due on 12/15/2024 Influenza Vaccine(1) due on 05/22/2024 Diabetes Screening due on 04/28/2026 Lipid Screening due on 07/09/2027 DTaP,Tdap,Td Vaccine(4 - Td or Tdap) due on 09/04/2030 Abdominal Aortic Aneurysm Screening Completed Hepatitis C Screening Completed Shingrix Vaccine Completed Pneumococcal Vaccine: 65+ Completed ASSESSMENT/PLAN: 1. ALONSO (obstructive sleep apnea) - ICD9: 327.23, ICD10: G47.33 - feeling improved - continue nightly use - follow-up with sleep medicine as scheduled Kacie PodlogarHERIBERTO.BOARD FILLER Prescription instructions reviewed with patient as applicable. Patient advised if symptoms do not improve or if symptoms worsen sooner, to contact their primary care physician. Potential red flag symptoms discussed with the patient. Reviewed appropriate action plan to take if red flag symptoms occur. Patient agreeable to treatment plan. Medical Decision Making: Problems: Low: Stable chronic illness Risk: Low: Low risk from testing/treatment Medical Decision Making Level: 3 - Low documented in this encounter [facility] 03-08-2024 Telephone encounter Note Paloma from [employer] calling asking for copy of office visit notes before sleep study was done. Printed notes from 12/2023 and faxed to [phone] as requested. [facility] 03-08-2024 Miscellaneous Notes Paloma from [employer] calling asking for copy of office visit notes before sleep study was done. Printed notes from 12/2023 and faxed to [phone] as requested. documented in this encounter [facility] 02-19-2024 History of Presen t illness Narrative 02/19/2024 Patient presents with: Results: Sleep study SUBJECTIVE: This is a 73 year old, accompanied by , that is here today for Above Complaints.. Patient here to discuss sleep study results. Sleep study completed on 02/10/2024 at [facility] after home sleep showed severe obstructive sleep apnea. Pap titration recommendations are CPAP 12 cmH2O. Has follow-up with sleep medicine in March. PAST MEDICAL HISTORY Diagnosis Date Anxiety with depression Class 1 obesity due to excess calories without serious comorbidity with body mass index (BMI) of 33.0 to 33.9 in adult Diarrhea Diverticulosis of colon (without mention of hemorrhage) Diverticulosis ED (erectile dysfunction) 09/04/2011 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 Rodriguez Unspecified hemorrhoids without mention of complication Hemorrhoids ALLERGIES Patient has no known allergies. MEDICATIONS Current Outpatient Medications Medication Sig citalopram (CELEXA) 20 mg tablet Take 1 tablet by mouth once daily. simvastatin (ZOCOR) 10 mg tablet Take 1 tablet by mouth daily at bedtime. For cholesterols. cholecalciferol (VITAMIN D) 1,000 unit tab tablet Take 1,000 Units by mouth once daily. lutein 10 mg tab Take 10 mg by mouth once daily. No current facility-administered medications for this visit. Medications and allergies reviewed by this provider. SOCIAL HISTORY Social History Tobacco Use Smoking status: Former Smokeless tobacco: Never Tobacco comments: quit 1979 after 2 years of smoking Substance Use Topics Alcohol use: Yes Comment: 1-2 beers per month Drug use: No REVIEW OF SYSTEMS All other reviewed and negative other than HPI. OBJECTIVE: BP 126/70 Pulse 76 Resp 18 Wt 126.2 kg (278 lb 3.2 oz) SpO2 96% BMI 38.56 kg/m . Vital signs reviewed by this provider. APPEARANCE Well appearing, alert, in no acute distress, well-hydrated, well nourished. RSV Vaccine(1 - 1-dose 60+ series) Never done Colorectal Cancer Screening due on 12/10/2022 Advance Directive Discussion Never done Covid-19 Vaccine( season) due on 12/15/2024 Influenza Vaccine(Season Ended) due on 05/22/2024 Diabetes Screening due on 04/28/2026 Lipid Screening due on 07/09/2027 DTaP,Tdap,Td Vaccine(4 - Td or Tdap) due on 09/04/2030 Abdominal Aortic Aneurysm Screening Completed Hepatitis C Screening Completed Shingrix Vaccine Completed Pneumococcal Vaccine: 65+ Completed ASSESSMENT/PLAN: 1. ALONSO (obstructive sleep apnea) - ICD9: 327.23, ICD10: G47.33 - will initiate therapy as recommended- patient agreeable - follow-up with sleep medicine as scheduled - CPAP DEVICE, WITH HUMIDIFIER - CPAP DEVICE Kacie Rodriguez APRN.JYOTI Prescription instructions reviewed with patient as applicable. Patient advised if symptoms do not improve or if symptoms worsen sooner, to contact their primary care physician. Potential red flag symptoms discussed with the patient. Reviewed appropriate action plan to take if red flag symptoms occur. Patient agreeable to treatment plan. Medical Decision Making: Problems: Moderate: New problem with uncertain prognosis Risk: Low: Low risk from testing/treatment Medical Decision Making Level: 3 - Low documented in this encounter [facility] 02-08-2024 Telephone encounter Note The following approved medication requests have been transmitted electronically. Requested Prescriptions Pending Prescriptions Disp Refills citalopram (CELEXA) 20 mg tablet 90 tablet 0 Sig: Take 1 tablet by mouth once daily. Ayo Fang APRN.CNP [facility] Work Phone: 02-08-2024 Miscellaneous Notes The following approved medication requests have been transmitted electronically. Requested Prescriptions Pending Prescriptions Disp Refills citalopram (CELEXA) 20 mg tablet 90 tablet 0 Sig: Take 1 tablet by mouth once daily. Ayo Fang APRN.CNP Patient has been identified by name and date of : Yes Patient phones for refill(s): Requested Prescriptions Pending Prescriptions Disp Refills citalopram (CELEXA) 20 mg tablet 90 tablet 0 Sig: Take 1 tablet by mouth once daily. Date of last office visit in primary care: 12/28/2023 Date of next office visit in primary care: 12/26/2024 Please advise. Thank you. Luh Palma MA. documented in this encounter [facility] 02-08-2024 Telephone encounter Note Patient has been identified by name and date of : Yes Patient phones for refill(s): Requested Prescriptions Pending Prescriptions Disp Refills citalopram (CELEXA) 20 mg tablet 90 tablet 0 Sig: Take 1 tablet by mouth once daily. Date of last office visit in primary care: 12/28/2023 Date of next office visit in primary care: 12/26/2024 Please advise. Thank you. Luh Palma MA. [facility] 02-02-2024 Telephone encounter Note Pts called over and reports they have the sleep study set up for next week at [facility]. Transferred to scheduled to set up appt with Sleep Medicine. Iraida Hess RN [facility] 02-02-2024 Miscellaneous Notes Pts called over and reports they have the sleep study set up for next week at [facility]. Transferred to scheduled to set up appt with Sleep Medicine. Iraida Hess RN Order, HSAT results, demographics and last office note faxed to [facility] sleep lab. Leesa Gil LPN Please fax order for pap titration to [facility]. Consul to sleep medicine placed- patient may call for appointment. Kacie Rodriguez APRN.JYOTI , Melissa, phoned, asking provider to fax order for sleep study titration to [facility] Sleep lab - fax # [phone] Called patient, handed phone to for update. Spoke with Melissa regarding results, orders and consult below. Melissa is going to check elsewhere to see if they do in lab sleep tests and will reach back out to office. Leesa Gil LPN ----- Message from Kacie Rodriguez APRN.CNP sent at 01/25/2024 1:42 PM EDT ----- Home sleep study shows severe obstructive sleep apnea. Would like to send for in lab sleep study for pap titration. Will also refer to sleep medicine Kacie Rodriguez APRN.BOARD FILLER documented in this encounter [facility] 01-26-2024 Telephone encounter Note Order, HSAT results, demographics and last office note faxed to [facility] sleep lab. Leesa Gil LPN [facility] 01-26-2024 Telephone encounter Note Please fax order for pap titration to [facility]. Consul to sleep medicine placed- patient may call for appointment. Kacie Rodriguez APRN.BOARD FILLER [facility] 01-26-2024 Telephone encounter Note , Melissa, phoned, asking provider to fax order for sleep study titration to [facility] Sleep lab - fax # [phone] [facility] 01-26-2024 Telephone encounter Note Called patient, handed phone to for update. Spoke with Melissa regarding results, orders and consult below. Melissa is going to check elsewhere to see if they do in lab sleep tests and will reach back out to office. Leesa Gil LPN [facility] 01-26-2024 Telephone encounter Note ----- Message from Kacie Rodriguez APRN.CNP sent at 01/25/2024 1:42 PM EDT ----- Home sleep study shows severe obstructive sleep apnea. Would like to send for in lab sleep study for pap titration. Will also refer to sleep medicine Kacie Rodriguez APRN.BOARD FILLER [facility] 01-21-2024 History of Presen t illness Narrative Sleep Study Check-In Documentation Date: January 21, 2024 Name: Jean Carlos Neville Comments: HST was returned in working order with all sleep questionnaires Regan Parsons Nomad# [id number] , Date shipped out: 01/18/24 SENT FEDEX DELIVERY - FEDEX RETURN Tracking mailout: [id number] Tracking return: [id number] [phone] January 11, 2024 Standing PSG Orders signed in the last 90 days None Future PSG Orders signed in the last 90 days Ordered Auth. provider HOME SLEEP APNEA TEST (HSAT) [[id number]] 12/28/23 Kacie Rodriguez APRN.BOARD FILLER Assoc. diagnoses: Snoring [R06.83], Hypersomnia, unspecified [G47.10] Q: Indications: A: Obstructive sleep apnea Q: STOP-BANG conditions - Select All That Apply: A: GENDER = male A2: BMI > 35 kg/m2 A3: AGE > 50 Q: Current use of supplemental oxygen during sleep period?: A: No All Prior Sleep Studies (past 365 days) 12/28/2023 11:48 Sleep Studies HOME SLEEP APNEA TEST (HSAT) HOME SLEEP APNEA TEST (HSAT) Order Status: Ordered, Future Expires: 12/27/24 BMI Readings from Last 2 Encounters: 12/28/23 : 38.26 kg/m 12/16/23 : 37.92 kg/m PAST MEDICAL HISTORY Diagnosis Date Anxiety with depression Class 1 obesity due to excess calories without serious comorbidity with body mass index (BMI) of 33.0 to 33.9 in adult Diarrhea Diverticulosis of colon (without mention of hemorrhage) Diverticulosis ED (erectile dysfunction) 09/04/2011 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 Rodriguez Unspecified hemorrhoids without mention of complication Hemorrhoids The medical record was reviewed to determine if the proposed sleep study conforms to the AASM Practice Parameters for the Indications for Polysomnography and Related Procedures, or if the sleep study is indicated for other reasons. Indications for study: ALONSO suspected without comorbid medical or sleep disorders Sleep study to be performed: Home Sleep Apnea Test (HSAT) Special instructions: None-follow laboratory protocol Maria Luz Griggs - Sleep Medicine Staff Note: I have read the above protocol, edited as needed, and agree to the plan. Earl Barahona III, PhD 5:46 PM, 01/12/2024 January 11, 2024 An order has been received for Home Sleep Apnea Test (HSAT) from Kacie Hoang APRN.brielle MONTES. [facility] Staff. Visit prep complete. Comments :No The sleep study is scheduled for 01/18. Insurance: Payor: MEDICARE / Plan: MEDICARE A AND B / Product Type: Medicare / Payer/Plan Subscr Sex Relation Sub. Ins. ID Effective Group Num 1. MEDICARE - ME* YENNY NEVILLEHAN 1950 Male Self [id number] 10/22/17 [address] [facility]* IZABELLA NEVILLENATHAN 1950 Male Self [id number] [birth year] [address] Kaylah Charlton documented in this encounter [facility] 12-28-2023 History of Presen t illness Narrative 12/28/2023 Patient presents with: discuss sleep apnea SUBJECTIVE: This is a 73 year old, accompanied by ,hat is here today for Above Complaints.. Thursday morning sat up and coughed and then felt like he couldn't take air in for a few seconds. witnessed the event. reports she took his pulse ox and pulse and listened to his lungs after and everything was normal. Has never happened before. Patient denies he was choking on anything. Does not wake up gasping for air. Denies difficulty swallowing, wheezing, SOB, hx of asthma or COPD, chest pain, palpitations or acid reflux. Patient and concerned he may have sleep apnea. 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 Rodriguez Unspecified hemorrhoids without mention of complication Hemorrhoids ALLERGIES Patient has no known allergies. MEDICATIONS Current Outpatient Medications Medication Sig simvastatin (ZOCOR) 10 mg tablet Take 1 tablet by mouth daily at bedtime. For cholesterols. citalopram (CELEXA) 20 mg tablet Take 1 tablet by mouth once daily. cholecalciferol (VITAMIN D) 1,000 unit tab tablet Take 1,000 Units by mouth once daily. lutein 10 mg tab Take 10 mg by mouth once daily. No current facility-administered medications for this visit. Medications and allergies reviewed by this provider. SOCIAL HISTORY Social History Tobacco Use Smoking status: Former Smokeless tobacco: Never Tobacco comments: quit 1979 after 2 years of smoking Substance Use Topics Alcohol use: Yes Comment: 1-2 beers per month Drug use: No REVIEW OF SYSTEMS All other reviewed and negative other than HPI. OBJECTIVE: BP 126/74 Pulse 86 Resp 16 Ht 180.9 cm (5' 11.22) Wt 125.2 kg (276 lb) SpO2 96% BMI 38.26 kg/m . Vital signs reviewed by this provider. APPEARANCE Well appearing, alert, in no acute distress, well-hydrated, well nourished. HEART RRR with normal S1 and S2, no murmurs, no gallops, no JVD appreciated LUNG clear to auscultation. No wheezes, rhonchi or rales SKIN Skin color, texture, turgor normal, no suspicious rashes or lesions to exposed skin RSV Vaccine(1 - 1-dose 60+ series) Never done Colorectal Cancer Screening due on 12/10/2022 Advance Directive Discussion Never done Covid-19 Vaccine( season) due on 12/15/2024 Influenza Vaccine(Season Ended) due on 05/22/2024 Diabetes Screening due on 04/28/2026 Lipid Screening due on 07/09/2027 DTaP,Tdap,Td Vaccine(4 - Td or Tdap) due on 09/04/2030 Abdominal Aortic Aneurysm Screening Completed Hepatitis C Screening Completed Shingrix Vaccine Completed Pneumococcal Vaccine: 65+ Completed ASSESSMENT/PLAN: 1. Difficulty breathing - ICD9: 786.09, ICD10: R06.89 - do not think this event was related to sleep apnea - consider laryngospasm - no red flag symptoms or exam findings - red flag symptoms discussed, verbalizes understanding 2. Snoring - ICD9: 786.09, ICD10: R06.83 (primary diagnosis) - HOME SLEEP APNEA TEST (HSAT) 3. Hypersomnia, unspecified - ICD9: 780.54, ICD10: G47.10 - HOME SLEEP APNEA TEST (HSAT) Kacie Rodriguez APRN.BOARD FILLER Prescription instructions reviewed with patient as applicable. Patient advised if symptoms do not improve or if symptoms worsen sooner, to contact their primary care physician. Potential red flag symptoms discussed with the patient. Reviewed appropriate action plan to take if red flag symptoms occur. Patient agreeable to treatment plan. Medical Decision Making: Problems: Moderate: New problem with uncertain prognosis Data: Unique test(s) ordered: 1 Risk: Low: Low risk from testing/treatment Medical Decision Making Level: 3 - Low documented in this encounter [facility] 12-28-2023 Miscellaneous Notes Reviewed. Kacie Rodriguez APRN.JYOTI Patient's Melissa calling to make appt for patient sx's. states patient has been experiencing episodes where he wakes up in the morning with shortness of breath and would like to have this evaluated. They are concerned that pt may have sleep apnea. Patient did not discuss this at his recent appt with Kacie last week. states this morning patient had difficulty catching his breath again. This resolved and pt without any sx's at this time. Per , pt without chest pain, no current SOB, no cold sx' and does not feel unwell. Appt made with Kacie Rodriguez CNP for 12/28/23. verbalizes understanding that pt should seek ER for any severe sx's as dicussed. Kimberli Lozada RN documented in this encounter [facility] 12-16-2023 History of Presen t illness Narrative Images from the original note were not included. Jean Carlos Neville is a 73 year old male here for a Medicare wellness visit. Medicare Health Risk Assessment General Health 5 Exercise: Minutes/Day 30 Exercise: Days/Week 1 Alcohol: Daily Use Monthly or less Alcohol: Drinks/Day One monthly or less Alcohol: 6 or more drinks no Feel off balance no Concerns: Teeth/Dentures no Concerns: Sexual function no Troubled by feelings Occasionally irritable Frequency: Eating healthy diet More than half ADLs requiring help no Safety precautions in home/vehicle Advised to not use throw rugs Smoke, vape, chews tobacco no Difficulty hearing no Difficulty seeing no Current Providers Specialists: I have reviewed specialist-related care of the patient in the medical record. Current care team: Patient Care Team: Ada Velasco MD as PCP - General (Family Medicine) Medical/Family history review Reviewed and updated problem list, medical/surgical/family/social history, medications, and allergies. Opioid use review Opioid Medications (last 90 days) No data to display Depression screening Depression Screening PHQ-2 Score 03/25/2021 0 Depression screening tool completed and reviewed. Based on score and interview, patient is already diagnosed with depression. Screening tool discussed with patient, and I recommended no further intervention at this time and continuing current plan of care. Cognitive screening Cognitive screening reviewed and no further action needed (score 3-5) Functional Observation Was the patient's Timed Up & Go test unsteady or ? 12 seconds? No Advance Care Planning Patient did not wish or was not able to name a surrogate decision maker or provide an advance care plan Measurements BP 112/68 Pulse 76 Resp 18 Ht 5' 11.22 (1.81m) Wt 273 lb 9.6 oz (124.1kg) SpO2 97% BMI 37.92 kg/(m^2). Vision Screening: Follows with optometry/ophthalmology; See them every 6 months. Declined vision screening today due to forgetting glasses that he uses to see long distance. Assessment/Plan 1. Medicare annual wellness visit, subsequent - ICD9: V70.0, ICD10: Z00.00 - Counseled on healthy diet and regular exercise - Fall avoidance information provided - Personalized prevention plan provided - Discussed need for and benefit of weight loss. BMI 37.92 kg/(m^2) Kacie Rodriguez APRN.JYOTI Prescription instructions reviewed with patient as applicable. Patient advised if symptoms do not improve or if symptoms worsen sooner, to contact their primary care physician. Potential red flag symptoms discussed with the patient. Reviewed appropriate action plan to take if red flag symptoms occur. Patient agreeable to treatment plan. documented in this encounter [facility] 11-04-2023 Miscellaneous Notes Spoke with pt and apt booked. Laura Mckeon LPN 90 day rx sent. Due for regular follow up or medicare wellness visit. Recommend OV in next 3 months. Patient has been identified by name and date of : Yes, Provider Dr Velasco Date 11/04/23 Time 10:41 am Patient phones for refill(s): Requested Prescriptions Pending Prescriptions Disp Refills citalopram (CELEXA) 20 mg tablet 90 tablet 0 Sig: Take 1 tablet by mouth once daily. Date of last office visit in primary care: 04/28/2023 Date of next office visit in primary care: Visit date not found Please advise. Thank you. Max Caballero LPN. documented in this encounter [facility] 08-06-2023 Miscellaneous Notes MARGAUX-04/28/23 Labs-04/28/23 NOV-none Ofelia Neumann LPN documented in this encounter [facility] 05-12-2023 Miscellaneous Notes Patient has been identified by name and date of : Yes Patient phones for refill(s): Requested Prescriptions Pending Prescriptions Disp Refills simvastatin (ZOCOR) 10 mg tablet 90 tablet 1 Sig: Take 1 tablet by mouth daily at bedtime. For cholesterols. citalopram (CELEXA) 20 mg tablet 90 tablet 0 Sig: Take 1 tablet by mouth once daily. Date of last office visit in primary care: 04/28/2023 Please advise. Thank you. Eula Jung LPN documented in this encounter [facility] 04-29-2023 Miscellaneous Notes Paperwork faxed to number below. Patient telephoned and notified. Leesa Gil LPN Please fax surgical clearance forms, last office note and labs to [phone]. All papers in my outbox. Let patient know labs normal and he is cleared and forms have been faxed. Kacie Rodriguez APRN.JYOTI Type of form: Request for surgery clearance Form received via fax When form is completed, Fax form to [phone] Form has been forwarded to Nurse Practitioner Kacie Rodriguez for completion. Leesa Gil LPN documented in this encounter [facility] 04-28-2023 History of Presen t illness Narrative CC: Patient presents with: Pre-Op Exam: Left knee surgery 05/26/2023 JUAN R Neville is a 72 year old male who presents today for pre-op evaluation. Surgical Procedure: left knee replacement Date of Procedure: 05/30/2023 Surgeon: Dr. Storm CONTI date: note sure when it is Did test for COVID-19 Thursday and was positive. Symptoms started Thursday. No symptoms at this time. METS: Walk indoors, such as around the house (1.75 METs): YES Do light work around the house, such as dusting or washing dishes (2.70 METs): YES Take care of self; that is eating, dressing, bathing, using the toilet (2.75 METs): YES Walk a block or two on level ground (2.75 METs): YES Do moderate work around the house such as vacuuming, sweeping floors, or carrying in groceries (3.50 METs): YES Do yardwork, such as raking leaves, weeding,or pushing a power mower (4.50 METs): YES Climb a flight of stairs or walk up a hill (5.50 METs): YES Participate in moderate recreational activities, such as golf, bowling, dancing, doubles tennis, or throwing a baseball or football (6.00 METs): YES Participate in strenuous sport, such as swimming, singles tennis, football, basketball, or skiing (7.50 METs): NO Do heavy work around the house, such as scrubbing floors, lifting or moving heavy furniture (8.00 METs): YES Run a short distance (8.00 METs): YES Total: 41.95 Patient denies any chest pain or undue shortness of breath with the above physical activity. 1. Diabetes: None 2. Hypertension requiring medication: No 3. Congestive Heart Failure: No 4. Current Smoker within 1 Year: No 5. History of COPD: No 6. History of ALONSO: No 7. Dialysis: No REVIEW OF SYSTEMS General: no fevers, no chills, no night sweats, no recurrent infections, no change in appetite, no change in energy, and no significant changes in weight HEENT: no frequent or significant headaches, no changes in hearing, no visual changes, no nose bleeds, no sinus or nasal problems Neck: no lumps, no pain , and no swelling Respiratory: no cough, no wheezing, no shortness of breath, no hemoptysis Cardiovascular: no chest pain, no chest pressure, no palpitations, and no swelling GI: No nausea, vomiting, or diarrhea : No history of dysuria, frequency or incontinence Neurologic: PAST MEDICAL HISTORY Diagnosis Date Anxiety with depression Class 1 obesity due to excess calories without serious comorbidity with body mass index (BMI) of 33.0 to 33.9 in adult Diarrhea Diverticulosis of colon (without mention of hemorrhage) Diverticulosis ED (erectile dysfunction) 09/04/2011 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 Rodriguez Unspecified hemorrhoids without mention of complication Hemorrhoids PAST SURGICAL HISTORY Procedure Laterality Date COLONOSCOPY FLX DX W/COLLJ SPEC WHEN PFRMD 01/12/2008 Repeat in COLONOSCOPY FLX DX W/COLLJ SPEC WHEN PFRMD 10/26/2012 Colonoscopy [facility] outpt COLONOSCOPY FLX DX W/COLLJ SPEC WHEN PFRMD [facility] COLSC FLX W/RMVL OF TUMOR POLYP LESION SNARE TQ 03/21/2004 hyperplastic polp ESOPHAGOGASTRODUODENOSCOPY TRANSORAL DIAGNOSTIC 10/26/2012 EGD [facility] outpt H-pylori negative ESOPHAGOGASTRODUODENOSCOPY TRANSORAL DIAGNOSTIC 12/01/2017 [facility]. [facility] EXCISION PILONIDAL CYST/SINUS SIMPLE Excision pilonidal cyst PAST SURGICAL HISTORY OF Bilateral 2019 corneal transplants PAST SURGICAL HISTORY OF Bilateral hip surgery, childhood ALLERGIES Patient has no known allergies. MEDICATIONS citalopram (CELEXA) 20 mg tablet Take 1 tablet by mouth once daily. simvastatin (ZOCOR) 10 mg tablet Take 1 tablet by mouth daily at bedtime. For cholesterols. cholecalciferol (VITAMIN D) 1,000 unit tab tablet Take 1,000 Units by mouth once daily. lutein 10 mg tab Take 10 mg by mouth once daily. FAMILY HISTORY Problem Relation Age of Onset Hypertension Mother Colon Cancer Father Diabetes Father Cancer Father LUNG Neuropathy Sister Cancer Brother melanoma Hypertension Brother Social History Tobacco Use Smoking status: Former Smokeless tobacco: Never Tobacco comments: quit 1980 after 2 years of smoking Substance Use Topics Alcohol use: Yes Comment: 1-2 beers per month Drug use: No PHYSICAL EXAM BP 132/70 Pulse 75 Resp 18 Wt 116.6 kg (257 lb) SpO2 96% BMI 35.84 kg/m General Appearance: well appearing, in no acute distress, alert Neck: Thyroid normal size and symmetric without palpable nodules, No adenopathy Lungs: Lungs clear to auscultation. No wheezing, rhonchi, rales. Heart: RRR without murmur, gallop, or rubs. No ectopy ADVANCE DIRECTIVE DISCUSSION Never done COLORECTAL CANCER SCREENING due on 12/01/2022 INFLUENZA(1) due on 05/22/2023 DIABETES SCREEN due on 07/09/2025 LIPID SCREEN due on 07/09/2027 DTAP,TDAP,TD(4 - Td or Tdap) due on 09/04/2030 ABDOMINAL AORTIC ANEURYSM SCREENING Completed HEPATITIS C SCREENING Completed SHINGRIX VACCINE Completed COVID-19 VACCINE Completed PNEUMOCOCCAL: 65+ Completed ASSESSMENT/PLAN: 1. Preop examination - ICD9: V72.84, ICD10: Z01.818 - CBC + DIFF - COMP METABOLIC PANEL There is no known pertinent medical condition which may affect teresa-operative course Risk of complications such as PE NJ, ventricular fibrillation, or cardiac arrest 0.4% using Maurizio's Simple Cardiac Risk Index The patient is cleared for surgery pending lab results Kacie Rodriguez APRN.CNP Prescription instructions reviewed with patient as applicable. Patient advised if symptoms do not improve or if symptoms worsen sooner, to contact their primary care physician. Potential red flag symptoms discussed with the patient. Reviewed appropriate action plan to take if red flag symptoms occur. Patient agreeable to treatment plan. I spent a total of 25 minutes on the date of the service which included preparing to see the patient, [id number] patient care, completing clinical documentation, obtaining and/or reviewing separately obtained history, performing a medically appropriate examination, counseling and educating the patient/family/caregiver, and ordering medications, tests, or procedures. documented in this encounter [facility] 12-12-2022 Miscellaneous Notes The following approved medication requests have been transmitted electronically. Requested Prescriptions Pending Prescriptions Disp Refills ketoconazole (NIZORAL) 2 % cream 30 g 3 Sig: Apply 1 application to affected area once daily for 14 days. Ayo Fang APRN.CNP is calling to ask Dr. Velasco to send in the following script to [facility] in [place]. ketoconazole (NIZORAL) 2 % cream (Discontinued) 30 g 3 02/09/2019 12/06/2021 Sig: Apply 1 application to affected area once daily. Sent to pharmacy as: ketoconazole (NIZORAL) 2 % cream documented in this encounter [facility] 12-09-2022 Procedure note [facility] 12-09-2022 Procedure note [facility] 11-07-2022 Miscellaneous Notes Patient phones requesting refills as follows: Requested Prescriptions Pending Prescriptions Disp Refills simvastatin (ZOCOR) 10 mg tablet 90 tablet 1 Sig: Take 1 tablet by mouth daily at bedtime. For cholesterols. MAR[facility]UX 03/21/22 NOV 03/25/2023 Please review and advise. Leesa Gil LPN documented in this encounter [facility] 06-02-2022 Miscellaneous Notes Patient has been identified by name and date of : Yes Requested Prescriptions Pending Prescriptions Disp Refills simvastatin (ZOCOR) 10 mg tablet 90 tablet 1 Sig: Take 1 tablet by mouth daily at bedtime. For cholesterols. RX INSTRUCTIONS: Patient aware RX will be sent to pharmacy. No need to notify patient. Anitra Olivas MA Margaux: 03/2022 (acute issues) No appointment scheduled Last refill: 03/2022 Patient has been identified by name and date of : Yes Requested Prescriptions Pending Prescriptions Disp Refills simvastatin (ZOCOR) 10 mg tablet 1 Sig: Take 1 tablet by mouth daily at bedtime. For cholesterols. RX INSTRUCTIONS: Requesting 90 day supply Patient aware RX will be sent to pharmacy. No need to notify patient. Suzanna Conley documented in this encounter [facility] 04-07-2022 Miscellaneous Notes Pts called and is notified of providers message and instructions. She voices understanding. Iraida Hess RN I have sent low dose cholesterol medication. Recheck labs in 3 months. Thanks, Kacie Rodriguez APRN.JYOTI calls and states pt willing to start on Cholesterol medication. Please send to [facility]. Laura Mckoen LPN Patient returned call and given provider's message below and patient verbalized understanding. Patient states he will call back on 04/07/22 with response about starting cholesterol medication. Piper Lozada RN Called and left a voicemail for the Patient to call back and ask for a nurse to receive the providers message. Iraida Hess RN Please call patient and let him know Based on his age, race, gender, blood pressure, and cholesterol, his 10 year risk for having a cardiovascular event such as a stroke or heart attack is 18.3 %. Current guidelines suggest lipid lowering medication at a risk of 7.5%. Would recommend cholesterol medication. Most common side effect is muscle aches. Also would recommend diet lower in saturated fats and at least 150 minutes of exercise per week. If interested in cholesterol medication let me know and I will send in and recheck blood work in 3 months. Thanks, Kacie Rodriguez APRN.JYOTI documented in this encounter [facility] 03-21-2022 History of Presen t illness Narrative 03/21/2022 Patient presents with: ED Follow-up: [facility] 03/11 post fall Suture Removal SUBJECTIVE: This is a 71 year old, accompanied by , that is here today for Above Complaints.. Was helping clean up in [employer] shop and floor was slippery. Slipped and hit his right abdomen on table and cut left pinky finger. HOSPITAL/ER FOLLOW UP: Reason for visit: slip and fall Which facility: [facility] Date of visit: 03/11/2022 Diagnosis: fall, abdominal wall contusion, finger laceration Testing done: CT ABD/PEL, CXR Treatment given: sutures placed Current symptoms: none Since ER visit has been keeping sutures clean and dry. Denies redness, warmth, or drainage to area. Still a little soreness to right abdomen when lays on that side but improving. Does note some hardness to area bruising is resolving. concerned his CT of ABD/PEL showed some coronary artery calcifications. Patient denies SOB, dyspnea, chest pain or leg swelling ER paperwork reviewed PAST MEDICAL HISTORY Diagnosis Date Anxiety with depression Class 1 obesity due to excess calories without serious comorbidity with body mass index (BMI) of 33.0 to 33.9 in adult Diarrhea Diverticulosis of colon (without mention of hemorrhage) Diverticulosis ED (erectile dysfunction) 09/04/2011 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 Rodriguez Unspecified hemorrhoids without mention of complication Hemorrhoids ALLERGIES Patient has no known allergies. MEDICATIONS Current Outpatient Medications Medication Sig citalopram (CELEXA) 20 mg tablet Take 1 tablet by mouth once daily. cholecalciferol (VITAMIN D) 1,000 unit tab tablet Take 1,000 Units by mouth once daily. lutein 10 mg tab Take 10 mg by mouth once daily. No current facility-administered medications for this visit. Medications and allergies reviewed by this provider. SOCIAL HISTORY Social History Tobacco Use Smoking status: Former Smoker Smokeless tobacco: Never Used Tobacco comment: quit 1979 after 2 years of smoking Substance Use Topics Alcohol use: Yes Comment: 1-2 beers per month Drug use: No REVIEW OF SYSTEMS All other reviewed and negative other than HPI. OBJECTIVE: BP 132/68 Pulse 80 Resp 18 Wt 118.8 kg (261 lb 12.8 oz) SpO2 97% BMI 36.51 kg/m . Vital signs reviewed by this provider. APPEARANCE Well appearing, alert, in no acute distress, well-hydrated, well nourished. EYES PERRLA, conjunctiva and sclera normal. ABDOMEN no tenderness to palpation. Resolving bruising to RUQ with some hematoma formation noted LEFT PINKY: two interrupted sutures observed to ventral aspect. No surrounding erythema, swelling or drainage. Two sutures removed without difficulty ADVANCE DIRECTIVE DISCUSSION Never done INFLUENZA(1) due on 05/22/2022 COLORECTAL CANCER SCREENING due on 12/01/2022 DIABETES SCREEN due on 12/06/2024 LIPID SCREEN due on 03/27/2026 DTAP,TDAP,TD(4 - Td or Tdap) due on 09/04/2030 ABDOMINAL AORTIC ANEURYSM SCREENING Completed HEPATITIS C SCREENING Completed SHINGRIX VACCINE Completed COVID-19 VACCINE Completed PNEUMOCOCCAL: 65+ Completed ASSESSMENT/PLAN: 1. Fall on same level from slipping, tripping and stumbling with subsequent striking against furniture, subsequent encounter - ICD9: E888.1, ICD10: W01.190D (primary diagnosis) - plan as below 2. Class 1 obesity due to excess calories without serious comorbidity with body mass index (BMI) of 33.0 to 33.9 in adult - ICD9: 278.00, V85.33, ICD10: E66.09, Z68.33 Weight increasing - Behavioral intervention - LIPID PANEL BASIC - COMP METABOLIC PANEL - discussed coronary artery calcifications on the CT. Discussed ways to help prevent further heart disease such as diet and exercise. Patient and verbalizes understanding. No symptoms of heart problems at this time 3. Laceration of left little finger without foreign body without damage to nail, subsequent encounter - ICD9: V58.89, ICD10: S61.217D - keep area clean - signs and symptoms or infection discussed, verbalizes understanding - follow-up with signs or symptoms of infection 4. Contusion of abdominal wall, subsequent encounter - ICD9: V58.89, ICD10: S30.1XXD - may use heating pad to cole 15 minutes a day - no red flag symptoms or exam findings - red flag symptoms discussed, verbalizes understanding - discussed the course of hematoma resolution - follow-up as needed to ER with red flag symptoms Kacie Rodriguez APRN.JYOTI Prescription instructions reviewed with patient as applicable. Patient advised if symptoms do not improve or if symptoms worsen sooner, to contact their primary care physician. Potential red flag symptoms discussed with the patient. Reviewed appropriate action plan to take if red flag symptoms occur. Patient agreeable to treatment plan. documented in this encounter [facility] 03-11-2022 History of Presen t illness Narrative Patient triaged at [facility]. Here today with fall/laceration to left hand. Now having bad abdominal pain on right with palpation. I will refer patient to ER, to drive pov to [facility] ER. documented in this encounter [facility] 02-05-2022 Miscellaneous Notes Patient has been identified by name and date of : Yes Patient phones for refill(s): Pending Prescriptions Disp Refills CITALOPRAM 20 MG TABLET 90 tablet 3 Sig: Take 1 tablet by mouth once daily. HERMILO: No Date of last office visit in primary care: 12/06/21 Please advise. Thank you. Eula Jung LPN documented in this encounter [facility] 08-06-2016 History of Past i llness Narrative Problem Noted Date Resolved Date Other forms of migraine 08/06/20 16 Diarrhea 09/29/2014 Unspecified constipation 015 documented as of this encounter (statuses as of 12/30/2021) [facility] History of Past illness Narrative* Problem Noted Date Resolved Date Other forms of migraine 08/06/20 16 Diarrhea 09/29/2014 Unspecified constipation 015 documented as of this encounter (statuses as of 02/05/2022) [facility] History of Past illness Narrative* Problem Noted Date Resolved Date Other forms of migraine 08/06/20 16 Diarrhea 09/29/2014 Unspecified constipation 015 documented as of this encounter (statuses as of 03/11/2022) [facility] History of Past illness Narrative* Problem Noted Date Resolved Date Other forms of migraine 08/06/20 16 Diarrhea 09/29/2014 Unspecified constipation 015 documented as of this encounter (statuses as of 03/21/2022) [facility] History of Past illness Narrative* Problem Noted Date Resolved Date Other forms of migraine 08/06/20 16 Diarrhea 09/29/2014 Unspecified constipation 015 documented as of this encounter (statuses as of 04/07/2022) [facility] History of Past illness Narrative* Problem Noted Date Resolved Date Other forms of migraine 08/06/20 16 Diarrhea 09/29/2014 Unspecified constipation 015 documented as of this encounter (statuses as of 06/02/2022) [place] [id number] History of Past illness Narrative* Problem Noted Date Resolved Date Other forms of migraine 08/06/20 16 Diarrhea 09/29/2014 Unspecified constipation 015 documented as of this encounter (statuses as of 07/12/2022) [place] [id number] History of Past illness Narrative* Problem Noted Date Resolved Date Other forms of migraine 08/06/20 16 Diarrhea 09/29/2014 Unspecified constipation 015 documented as of this encounter (statuses as of 11/07/2022) [address]2016 History of Past illness Narrative* Problem Noted Date Resolved Date Other forms of migraine 08/06/20 16 Diarrhea 09/29/2014 Unspecified constipation 015 documented as of this encounter (statuses as of 12/12/2022) [place] [address]-16-2016 History of Past illness Narrative* Problem Noted Date Diagnosed Date Resolved Date Other forms of migraine 07/22 Diarrhea 09/29/2014 Unspecified constipation 05/2015 documented as of this encounter (statuses as of 04/28/2023) [facility] History of Past illness Narrative* Problem Noted Date Diagnosed Date Resolved Date Other forms of migraine 07/22 Diarrhea 09/29/2014 Unspecified constipation 05/2015 documented as of this encounter (statuses as of 04/29/2023) [facility] History of Past illness Narrative* Problem Noted Date Diagnosed Date Resolved Date Other forms of migraine 07/22 Diarrhea 09/29/2014 Unspecified constipation 05/2015 documented as of this encounter (statuses as of 05/12/2023) [place] [address]-16-2016 History of Past illness Narrative* Problem Noted Date Diagnosed Date Resolved Date Other forms of migraine 07/22 Diarrhea 09/29/2014 Unspecified constipation 05/2015 documented as of this encounter (statuses as of 08/06/2023) [facility] History of Past illness Narrative* Problem Noted Date Diagnosed Date Resolved Date Other forms of migraine 07/22 Diarrhea 09/29/2014 Unspecified constipation 05/2015 documented as of this encounter (statuses as of 11/04/2023) [facility] History of Past illness Narrative* Problem Noted Date Diagnosed Date Resolved Date Other forms of migraine 07/22 Diarrhea 09/29/2014 Unspecified constipation 05/2015 documented as of this encounter (statuses as of 12/17/2023) [facility] History of Past illness Narrative* Problem Noted Date Diagnosed Date Resolved Date Other forms of migraine 07/22 Diarrhea 09/29/2014 Unspecified constipation 05/2015 documented as of this encounter (statuses as of 12/28/2023) [facility] History of Past illness Narrative* Problem Noted Date Diagnosed Date Resolved Date Other forms of migraine 07/22 Diarrhea 09/29/2014 Unspecified constipation 05/2015 documented as of this encounter (statuses as of 12/28/2023) [facility] Future Appointments [facility] Evaluation note* Diagnosis Fall, initial encounter- Primary Abdominal pain, unspecified abdominal location documented [facility] this encounter [facility] noteNo assessment information availableW[facility] Work Phone: evaluation note* Diagnosis Fall on same level from slipping, tripping and stumbling with subsequent striking against furniture, subsequent encounter- Primary Class 1 obesity due to excess calories without serious comorbidity with body mass index (BMI) of 33.0 to 33.9 in adult Laceration of left little finger without foreign body without damage to nail, subsequent encounter Contusion of abdominal wall, subsequent encounter [facility] Diagnosis Hyperlipidemia, mixed- Primary Mixed hyperlipidemia documented [facility]* Diagnosis Onset Date Resolution Status Encounter for screening for malignant neoplasm of colo n [facility] Work Phone: Evaluation note* Diagnosis Preop examination- Primary Preoperative examination, unspecified documented [facility]* Diagnosis Medicare annual wellness visit, subsequent- Primary Routine general medical examination at a health care facility documented [facility] encounter [facility]* Diagnosis Difficulty breathing- Primary Other dyspnea and respiratory abnormality Snoring Other dyspnea and respiratory abnormality Hypersomnia, unspecified documented [facility]* Diagnosis ALONSO (obstructive sleep apnea)- Primary Obstructive sleep apnea (adult) (pediatric) documented in this encounter [facility]* Diagnosis ALONSO (obstructive sleep apnea)- Primary Obstructive sleep apnea (adult) (pediatric) documented [facility] this [facility]* Diagnosis ALONSO (obstructive sleep apnea)- Primary Obstructive sleep apnea (adult) (pediatric) documented in this encounter [facility]* Diagnosis ALONSO (obstructive sleep apnea)- Primary Obstructive sleep apnea (adult) (pediatric) RLS (restless legs syndrome) Restless legs syndrome (RLS) documented in this [facility]* Diagnosis Medicare annual wellness visit, subsequent- Primary Routine general medical examination at a health care facility Decreased visual acuity Unspecified visual loss documented [facility] this encounter [facility]* Diagnosis Medicare annual wellness visit, subsequent- Primary Routine general medical examination at a health care facility documented [facility] this encounter [facility]* Diagnosis Viral URI with cough- Primary Acute upper respiratory infections of unspecified site documented [facility] this [facility] and [facility] Author Dr. Savage [facility] December 09, 2022 6:08am Note Date/Time December 09, 2022 6:0 3am [facility] Medical Records Department [address] [place] [id number] History & Physical Exam 12/09/22 0601 MR#: [id number] Acct: [id number] Name: JEAN CARLOS NEVILLE Rep #:[id number] : 1950 72 From: Leonardo Savage MD PCP: Dr. Sebastian Velasco MD Status :[facility] Location: [address] - General General Date of Service: 12/09/22 Chief Complaint: Surveillance for colon cancer. HPI Narrative JEAN CARLOS NEVILLE, is a 72 M who presents for colonoscopy. I assisted him November 2017 and detected diverticulosis. The patient has a family history with a father who had colon cancer. He presents via open access today. His father developed colon cancer in his 60s. The patient denies any abdominal pain. No bright red blood per rectum or melena. He has had a hip and knee replacement since his previous colonoscopy. He otherwise states that he is enjoying good health [facility] Medical History (Updated 12/05/22 @ 11:58 by Trice Olivo) Acute hemorrhoid Alcohol use Anxiety and depression Arthritis Cancer Constipation Depression Diarrhea Diverticulosis of colon without hemorrhage Erectile dysfunction Family history of colon cancer in father Gastric reflux High cholesterol History of stress test Non-smoker Palpitations Personal history of colonic polyps Home Medications citalopram 20 mg tablet 20 mg PO DAILY 06/27/16 [History Last Taken Unknown] calcium carbonate 200 mg calcium (500 mg) chewable tablet (Tums) 200 mg PO BID PRN reflux 11/06/22 [History Last Taken Unknown] prednisolone acetate 0.12 % eye drops,suspension 1 drp ophthalmic (eye) ONCE 11/06/22 [History Last Taken Unknown] simvastatin 10 mg tablet 10 mg PO DAILY 11/06/22 [History Last Taken Unknown] vitamins A,C,J-uqak-ipgxle 4,296 mcg-226 mg-90 mg capsule (PreserVision AREDS) 1cap PO DAILY 11/06/22 [History Last Taken Unknown] acetaminophen 325 mg capsule 325 mg PO Q6H PRN Pain 12/05/22 [History Last Taken Unknown] ibuprofen 200 mg tablet 200 mg PO Q6H PRN Pain 12/05/22 [History Last Taken Unknown] amoxicillin 500 mg tablet 2,000 mg PO X1 12/09/22 [History Last Taken 12/09/22 05:00] Allergy/AdvReac Type Severity Reaction Status Date / Time No Known Allergies Allergy Verified 12/09/22 05:42 Family History Father Arthritis Colon cancer Diabetes Cancer Lung Hypertension Mother Arthritis Heart disease Hypertension Cancer Skin Surgical History (Updated 12/05/22 @ 11:51 by Trice Olivo) History of esophagogastroduodenoscopy (EGD) History of total hip replacement History of total knee replacement S/P colonoscopy S/P surgical removal of pilonidal cyst Social History Smoking Status: Never smoker second hand exposure: No alcohol intake: never substance use type: does not use caffeine: Yes what type of physical activity do you participate in: none frequency: does not exercise seatbelt use: always ROS Constitutional Constitutional: Reports systems reviewed and no addt'l complaints, except as documented Cardiovascular Cardiovascular: Denies chest pain Respiratory/Chest Respiratory/Chest: Denies shortness of breath at rest Gastrointestinal Gastrointestinal: Denies abdominal pain, change in bowel habits, hematochezia ormelena Vital Signs Vital Signs Vital Signs: 12/09/22 05:43 12/09/22 05:44 Temperature 98.1 F Temperature Source Temporal Pulse Rate 96 Respiratory Rate 18 Respiratory Pattern Normal Blood Pressure 133/75 H Blood Pressure Mean 94 Blood Pressure Source Monitor Blood Pressure Position Semi-Fowlers Blood Pressure Location Left Arm Pulse Ox 98 Oxygen Delivery Method Room Air Weight Weight: 261 lb Body Mass Index (BMI) 35.4 Physical Exam Const alert, oriented x3 and no apparent distress General Appearance: cooperative and comfortable Eyes General Eye: normal appearance of both eyes Neck General: normal visual inspection Chest inspection of chest normal Resp Effort and Inspection: able to speak in complete sentences and symmetric chest movement Auscultation: clear to auscultation bilaterally Cardio regular rate and regular rhythm GI soft to palpation, non-tender and non-distended Extremity no calf tenderness Neuro oriented x3 Psych thought process normal Assessment & Plan Assessment/Plan (1) Encounter for screening for malignant neoplasm of colon: PLAN: The patient presents via open access today for a surveillance colonoscopy based upon family history of colon cancer in his father. He is aware of the technique, benefit, risk, alternatives. He has had an opportunity to ask and have questions answered. We will proceed as noted. Leonardo Savage M.D., F.A.C.S. 12/09/22 0608 <Electronically signed by Leonardo Savage MD> Cosigner Signature (if applicable): CC: Dr. Sebastian Velasco MD; Dr. Leonardo Savage MD~ Signed [facility] Work Phone: Hospital course Narrative No data available for this section [facility] Discharge instructions Additional Instructions Ice to all sore areas especially abdominal wall. Tylenol for pain. Stitches in your left small finger should be out in 10 days. Keep that area clean. Clean daily with soap and water. Dry thoroughly. Do not let it soak in dirty water. Return if any signs of infection in the finger such as pus, red streaks significant swelling or fever. [facility] Work Phone: Hospital Discharge instructions No data available for this section [facility] Progress note No data available for this section [facility] Reason for referral (narrative)* Diagnostic Procedure Only (Routine) - Pending Review Specialty Diagnoses / Procedures Referred By Jayden mancia Referred To [facility] Diagnoses Snoring Hypersomnia, unspecified Procedures HOME SLEEP APNEA TEST (HSAT) SLEEP STD AIRFLOW HRT RATE&O2 SAT EFFORT UNATT Kacie Rodriguez APRN.CNP [address] [place] [address] [facility] [place] [address] [place] [address] Referral ID Status Reason Start Date Expiration Date Visits Requested Visits Authorized [id number] Pending Review Auto-Generat ed Referral 12/28/2023 12/27/2024 1 1 [facility] Chief Complaint and Reason for Visit Chief Complaint FALL Chief Complaint Amb Documentation Reason for Visit Encounter for screen ing for malignant neoplasm of colon Family History No Family History Records Found Relationship Condition Age at Onset Recorded Date/T del father Arthritis Unknown Malignant neoplasm of colon Unknown Diabetes mellitus Unknown Malignant neoplasm Unknown Hypertension Unknown mother Arthritis Unknown Cardiac disease Unknown Advance Directives No Advanced Directives Records Found Advance Directive Response Recorded Date/ Time Living Will No March 11, 2022 9:10pm Power of Coater Operator Insulation Board No March 11 9:10pm Advance Directive Response Recorded Date/ Time Living Will No December 05, 2022 11:51am Power of Coater Operator Insulation Board No December 05 11:51am Summary Purpose Reason for Referral Specialty Diagnoses / Procedures Referred By Jayden mancia Referred To Contact Diagnoses ALONSO (obstructive sleep apnea) Procedures CONSULT TO SLEEP MEDICINE - ADULT OFFICE/OUTPATIENT [facility] 60 MINUTES Kacie Rodriguez APRN.CNP [address] [place] [address] Referral ID Status Reason Start Date Expiration Date Visits Requested Visits Authorized [id number] Authorized PCP Requested Referral 01/26/2024 01/25/2025 1 1 Additional Source Comments Source Comments (unrecognize d section and content) In the event this informatio n is protected by the Federal Confidentiality of Alcohol and Drug Abuse Patient Records regulations: The Federal rules restrict any use of the information to criminally investigate or prosecute any alcohol or drug abuse patient.[facility] the event this information is protected by the Federal Confidentiality of Alcohol and Drug Abuse Patient Records regulations: The Federal rules restrict any use of the information to criminally investigate or prosecute any alcohol or drug abuse patient.[facility] the event this information is protected by the Federal Confidentiality of Alcohol and Drug Abuse Patient Records regulations: The Federal rules restrict any use of the information to criminally investigate or prosecute any alcohol or drug abuse patient.[facility] HospitalIn the event this information is protected by the Federal Confidentiality of Alcohol and Drug Abuse Patient Records regulations: The Federal rules restrict any use of the information to criminally investigate or prosecute any alcohol or drug abuse patient.[facility] HospitalIn the event this information is protected by the Federal Confidentiality of Alcohol and Drug Abuse Patient Records regulations: The Federal rules restrict any use of the information to criminally investigate or prosecute any alcohol or drug abuse patient.[facility] HospitalIn the event this information is protected by the Federal Confidentiality of Alcohol and Drug Abuse Patient Records regulations: The Federal rules restrict any use of the information to criminally investigate or prosecute any alcohol or drug abuse patient.[facility] HospitalIn the event this information is protected by the Federal Confidentiality of Alcohol and Drug Abuse Patient Records regulations: The Federal rules restrict any use of the information to criminally investigate or prosecute any alcohol or drug abuse patient.[facility] HospitalIn the event this information is protected by the Federal Confidentiality of Alcohol and Drug Abuse Patient Records regulations: The Federal rules restrict any use of the information to criminally investigate or prosecute any alcohol or drug abuse patient.[facility]In the event this information is protected by the Federal Confidentiality of Alcohol and Drug Abuse Patient Records regulations: The Federal rules restrict any use of the information to criminally investigate or prosecute any alcohol or drug abuse patient.[facility] HospitalIn the event this information is protected by the Federal Confidentiality of Alcohol and Drug Abuse Patient Records regulations: The Federal rules restrict any use of the information to criminally investigate or prosecute any alcohol or drug abuse patient.[facility] HospitalIn the event this information is protected by the Federal Confidentiality of Alcohol and Drug Abuse Patient Records regulations: The Federal rules restrict any use of the information to criminally investigate or prosecute any alcohol or drug abuse patient.[facility] HospitalIn the event this information is protected by the Federal Confidentiality of Alcohol and Drug Abuse Patient Records regulations: The Federal rules restrict any use of the information to criminally investigate or prosecute any alcohol or drug abuse patient.[facility] HospitalIn the event this information is protected by the Federal Confidentiality of Alcohol and Drug Abuse Patient Records regulations: The Federal rules restrict any use of the information to criminally investigate or prosecute any alcohol or drug abuse patient.[facility] HospitalIn the event this information is protected by the Federal Confidentiality of Alcohol and Drug Abuse Patient Records regulations: The Federal rules restrict any use of the information to criminally investigate or prosecute any alcohol or drug abuse patient.[facility] HospitalIn the event this information is protected by the Federal Confidentiality of Alcohol and Drug Abuse Patient Records regulations: The Federal rules restrict any use of the information to criminally investigate or prosecute any alcohol or drug abuse patient.[facility] HospitalIn the event this information is protected by the Federal Confidentiality of Alcohol and Drug Abuse Patient Records regulations: The Federal rules restrict any use of the information to criminally investigate or prosecute any alcohol or drug abuse patient.[facility] HospitalIn the event this information is protected by the Federal Confidentiality of Alcohol and Drug Abuse Patient Records regulations: The Federal rules restrict any use of the information to criminally investigate or prosecute any alcohol or drug abuse patient.[facility] HospitalIn the event this information is protected by the Federal Confidentiality of Alcohol and Drug Abuse Patient Records regulations: The Federal rules restrict any use of the information to criminally investigate or prosecute any alcohol or drug abuse patient.[facility] HospitalIn the event this information is protected by the Federal Confidentiality of Alcohol and Drug Abuse Patient Records regulations: The Federal rules restrict any use of the information to criminally investigate or prosecute any alcohol or drug abuse patient.[facility] HospitalIn the event this information is protected by the Federal Confidentiality of Alcohol and Drug Abuse Patient Records regulations: The Federal rules restrict any use of the information to criminally investigate or prosecute any alcohol or drug abuse patient.[facility] HospitalIn the event this information is protected by the Federal Confidentiality of Alcohol and Drug Abuse Patient Records regulations: The Federal rules restrict any use of the information to criminally investigate or prosecute any alcohol or drug abuse patient.[facility] HospitalIn the event this information is protected by the Federal Confidentiality of Alcohol and Drug Abuse Patient Records regulations: The Federal rules restrict any use of the information to criminally investigate or prosecute any alcohol or drug abuse patient.[facility] HospitalIn the event this information is protected by the Federal Confidentiality of Alcohol and Drug Abuse Patient Records regulations: The Federal rules restrict any use of the information to criminally investigate or prosecute any alcohol or drug abuse patient.[facility] HospitalIn the event this information is protected by the Federal Confidentiality of Alcohol and Drug Abuse Patient Records regulations: The Federal rules restrict any use of the information to criminally investigate or prosecute any alcohol or drug abuse patient.[facility]In the event this information is protected by the Federal Confidentiality of Alcohol and Drug Abuse Patient Records regulations: The Federal rules restrict any use of the information to criminally investigate or prosecute any alcohol or drug abuse patient.[facility] HospitalIn the event this information is protected by the Federal Confidentiality of Alcohol and Drug Abuse Patient Records regulations: The Federal rules restrict any use of the information to criminally investigate or prosecute any alcohol or drug abuse patient.[facility] HospitalIn the event this information is protected by the Federal Confidentiality of Alcohol and Drug Abuse Patient Records regulations: The Federal rules restrict any use of the information to criminally investigate or prosecute any alcohol or drug abuse patient.[facility] HospitalIn the event this information is protected by the Federal Confidentiality of Alcohol and Drug Abuse Patient Records regulations: The Federal rules restrict any use of the information to criminally investigate or prosecute any alcohol or drug abuse patient.[facility] HospitalIn the event this information is protected by the Federal Confidentiality of Alcohol and Drug Abuse Patient Records regulations: The Federal rules restrict any use of the information to criminally investigate or prosecute any alcohol or drug abuse patient.[facility] HospitalIn the event this information is protected by the Federal Confidentiality of Alcohol and Drug Abuse Patient Records regulations: The Federal rules restrict any use of the information to criminally investigate or prosecute any alcohol or drug abuse patient.[facility] HospitalIn the event this information is protected by the Federal Confidentiality of Alcohol and Drug Abuse Patient Records regulations: The Federal rules restrict any use of the information to criminally investigate or prosecute any alcohol or drug abuse patient.[facility] HospitalIn the event this information is protected by the Federal Confidentiality of Alcohol and Drug Abuse Patient Records regulations: The Federal rules restrict any use of the information to criminally investigate or prosecute any alcohol or drug abuse patient.[facility] HospitalIn the event this information is protected by the Federal Confidentiality of Alcohol and Drug Abuse Patient Records regulations: The Federal rules restrict any use of the information to criminally investigate or prosecute any alcohol or drug abuse patient.[facility] HospitalIn the event this information is protected by the Federal Confidentiality of Alcohol and Drug Abuse Patient Records regulations: The Federal rules restrict any use of the information to criminally investigate or prosecute any alcohol or drug abuse patient.[facility] HospitalIn the event this information is protected by the Federal Confidentiality of Alcohol and Drug Abuse Patient Records regulations: The Federal rules restrict any use of the information to criminally investigate or prosecute any alcohol or drug abuse patient.[facility] HospitalIn the event this information is protected by the Federal Confidentiality of Alcohol and Drug Abuse Patient Records regulations: The Federal rules restrict any use of the information to criminally investigate or prosecute any alcohol or drug abuse patient.[facility] HospitalIn the event this information is protected by the Federal Confidentiality of Alcohol and Drug Abuse Patient Records regulations: The Federal rules restrict any use of the information to criminally investigate or prosecute any alcohol or drug abuse patient.[facility] [facility] Reason for Visit (unrecogniz ed section and content) Reason Comments Opened In Error Reason Onset Date Comments Refill Request 02/05/2022 Reason Comments Rib Injury right, left little f luis manuel injury x 4:30 today, slipped on wet floor Reason Comments ED Follow-up [facility] 03/11 post fall Suture Removal Reason Comments Results Reason Onset Date Comments Refill Request 06/02/2022 Reason Onset Date Comments Refill Request 11/06/2022 Reason Onset Date Comments Refill Request 12/12/2022 Reason Comments Pre-Op Exam Left knee surgery 05/26/2023 Reason Comments Forms Surgery Clearance Reason Onset Date Comments Refill Request 05/12/2023 Reason Onset Date Comments Refill Request 08/05/2023 Reason Onset Date Comments Refill Request 11/04/2023 Reason Comments Medicare Wellness Exam Reason Comments Patient Update Appointment Request Reason Comments discuss sleep apnea Reason Comments Results Reason Onset Date Comments Refill Request 02/07/2024 Reason Comments Results Sleep study Reason Comments [employer] requesting records Reason Comments Patient Question Reason Comments Recheck ALONSO Reason Onset Date Comments Refill Request 05/05/2024 Reason Onset Date Comments Refill Request 06/13/2024 Reason Onset Date Comments Refill Request 07/28/2024 Reason Comments New Patient Specialty Diagnoses / Procedures Referred By Jayden mancia Referred To Contact Diagnoses ALONSO (obstructive sleep apnea) Procedures CONSULT TO SLEEP MEDICINE - ADULT OFFICE/OUTPATIENT [facility] 60 MINUTES Podlogar, HERIBERTO Hester.JYOTI [address] [place] [address] Referral ID Status Reason Start Date Expiration Date V isits Requested Visits Authorized [id number] Closed PCP Requested Referral 01/26/2024 01/25/2025 1 1 Reason Onset Date Comments Refill Request 11/15/2024 Reason Onset Date Comments Refill Request 12/06/2024 Reason Onset Date Comments Results 12/29/2024 Reason Onset Date Comments Refill Request 02/13/2025 Reason Onset Date Comments Refill Request 04/20/2025 Reason Comments URI Cough, fatigue, runn y nose x 1 week Care Teams (unrecognized sec tion and content) Aeronautical Engineering Officer Relationship Specialty Start Date End Date Ada Velasco MD [address] [place], [place] [id number] PCP - General Family Practice 03/27/21 Aeronautical Engineering Officer Relationship Specialty Start Date End Date Ada Velasco MD [address] [place], [place] [id number] PCP - General Family Practice 03/27/21 Aeronautical Engineering Officer Relationship Specialty Start Date End Date Ada Velasco MD [address] [place], [place] [id number] PCP - General Family Practice 03/27/21 Aeronautical Engineering Officer Relationship Specialty Start Date End Date Ada Velasco MD [address] [facility] [place], [place] [id number] PCP - General Family Practice 03/27/21 Aeronautical Engineering Officer Relationship Specialty Start Date End Date Ada Velasco MD [address] [facility] [place], [place] [address] [phone] PCP - General Family Practice 03/27/21 Aeronautical Engineering Officer Relationship Specialty Start Date End Date Ada Velasco MD [address] [facility] [place] [address] PCP - General Family Practice 03/27/21 Aeronautical Engineering Officer Relationship Specialty Start Date End Date Ada Velasco MD [address] [facility] [place] [address] PCP - General Family Medicine 03/27/21 Aeronautical Engineering Officer Relationship Specialty Start Date End Date Ada Velasco MD [address] [facility] [place], [place] [id number] PCP - General Family Medicine 03/27/21 Team Status: Active Member Role Status Dates Dr. Primo Savage III, MD Family Provider Active Dr. Sebastian Velasco MD Primary Care Provider Acti ve Team Status: Active Member Role Status Dates Dr. Sebastian Velasco MD Primary Care Provider Acti ve [facility] Attending Provider Active Team Status: Active Member Role Status Dates Dr. Sebastian Velasco MD Primary Care Provider, Ref erring Provider Active Dr. Leonardo Savage MD Attending Provider, Other Prov ider Active Team Status: Inactive Member Role Status Dates Dr. Sebastian Velasco MD Primary Care Provider, Ref erring Provider Active Dr. Leonardo Savage MD Attending Provider Active Aeronautical Engineering Officer Relationship Specialty Start Date End Date Ada Velasco MD [address] [facility] [place], [place] [address] PCP - General Family Medicine 03/27/21 Team Status: Inactive Member Role Status Dates Dr. Sebastian Velasco MD Primary [facility] Provider [facility] Gorge Inman MD Attending Provider, Referring Jana calderon Active Aeronautical Engineering Officer Relationship Specialty Start Date End Date Ada Velasco MD [address] [facility] [place] [address] PCP - General Family Medicine 03/27/21 Aeronautical Engineering Officer Relationship Specialty Start Date End Date Ada Velasco MD [address] [facility] [place] [address] PCP - General Family Medicine 03/27/21 Aeronautical Engineering Officer Relationship Specialty Start Date End Date Ada Velasco MD [address] [facility] [place] [address] PCP - General Family Medicine 03/27/21 Aeronautical Engineering Officer Relationship Specialty Start Date End Date Ada Velasco MD [address] [facility] [place] [address] PCP - General Family Medicine 03/27/21 Aeronautical Engineering Officer Relationship Specialty Start Date End Date Ada Velasco MD [address] [place] [address] PCP - General Family Medicine 03/27/21 Aeronautical Engineering Officer Relationship Specialty Start Date End Date Ada Velasco MD [address] [place] [address] PCP - General Family Medicine 03/27/21 Aeronautical Engineering Officer Relationship Specialty Start Date End Date Ada Velasco MD [address] [place] [address] PCP - General Family Medicine 03/27/21 Aeronautical Engineering Officer Relationship Specialty Start Date End Date Ada Velasco MD [address] [facility] [place], [place] [address] PCP - General Family Medicine 03/27/21 Aeronautical Engineering Officer Relationship Specialty Start Date End Date Ada Velasco MD [address] [facility] [place], [place] [address] [phone] PCP - General Family Medicine 03/27/21 Podlogar, Kacie, FUNERAL 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.BOARD FILLER [address] [place] [address] [employer] [facility] 08/27/24 Aeronautical Engineering Officer Relationship Specialty Start Date End Date Ada Velasco MD [address] [place] [address] PCP - General Family Medicine 03/27/21 Podlogar, Kacie, FUNERAL 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.BOARD FILLER [address] [facility] [place] [address] [employer] 08/27/24 Sendy Hernandez FUNERAL 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.BOARD FILLER [address] [place], [place] [address] [employer] [facility] 12/02/24 Aeronautical Engineering Officer Relationship Specialty Start Date End Date Ada Velasco MD [address] [facility] [place] [address] PCP - General Family Medicine 03/27/21 Podlogar, Kacie, FUNERAL 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.BOARD FILLER [address] [facility] [place] [address] [employer] [facility] 08/27/24 Sendy Hernandez APRN.BOARD FILLER [address] [place] [address] [employer] [facility] 12/12/24 Aeronautical Engineering Officer Relationship Specialty Start Date End Date Ada Velasco MD [address] [facility] [place] [address] PCP - General Family Medicine 03/27/21 Podlogar, Kacie, FUNERAL 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.BOARD FILLER [address] [place] [address] [employer] 08/27/24 Sendy Hernandez FUNERAL 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.BOARD FILLER [address] [place] [address] [employer] [facility] 12/12/24 Aeronautical Engineering Officer Relationship Specialty Start Date End Date Ada Velasco MD [address] [place] [address] PCP - General Family Medicine 03/27/21 Podlogar, Kacie, FUNERAL 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.BOARD FILLER [address] [place] [address] [employer] [facility] 08/27/24 Sendy Hernandez FUNERAL 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.BOARD FILLER [address] [facility] [place] [address] [employer] [facility] 12/12/24 Aeronautical Engineering Officer Relationship Specialty Start Date End Date Ada Velasco MD [address] [facility] [place] [address] PCP - General Family Medicine 03/27/21 Podlogar, Kacie, FUNERAL 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.BOARD FILLER [address] [place], [place] [address] [facility] 08/27/24 Sendy Hernandez APRN.BOARD FILLER [address] [place], [place] [address] [facility] 03/02/25 Aeronautical Engineering Officer Relationship Specialty Start Date End Date Ada Velasco MD [address] [place], [place] [address] PCP - General Family Medicine 03/27/21 PodlogKacie vazquez APRN.BOARD FILLER [address] [place], [place] [address] [facility] 08/27/24 Sendy Hernandez APRN.BOARD FILLER [address] [place], [place] [id number] [facility] 03/02/25 Goals (unrecognized section and content) Goals may be documented in a n alternate section No data available for this section (unrecognized sect ion and content) No Status Records FoundNo Status Records FoundNo Status Records Found INFORMATION SOURCE (unrecogn ized section and content) DATE CREATED AUTHOR 03/11/2023 [facility] ([place]) DATE CREATED AUTHOR AUTHOR'S ORGANIZ ATION 08/23/2024 [facility] DATE CREATED AUTHOR AUTHOR'S ORGANIZ ATION 05/21/2025 [facility] FOR RECORDS PERTAINING TO PATIENTS WHO ARE OR HAVE BEEN ENROLLED IN A CHEMICAL DEPENDENCY/SUBSTANCEABUSE PROGRAM, SOME INFORMATION MAY BE OMITTED. This clinical summary was aggregated from multiple sources. Caution should be exercised in using it in the provision of clinical care. This summary normalizes information from multiple sources, and as a consequence, information in this document may materially change the coding, format and clinical context of patient data. In addition, data may be omitted in some cases. CLINICAL DECISIONS SHOULD BE BASED ON THE PRIMARY CLINICAL RECORDS. [facility] provides no warranty or guarantee of the accuracy or completeness of information in this document.
[2025-05-22 08:14] LABS: Anion Gap 10 (5-15); BUN 11 mg/dL (4-19); BUN/Creat Ratio 17.4 RATIO (10-20); Calcium,Total 8.8 mg/dL (7.6-11.0); Carbon Dioxide 24.7 mmol/L (21.0-32.0); Chloride 103 mmol/L (98-108); Estimated Creatinine Clearance 109.80 ml/min (50-250); Glucose 112 mg/dL (70-99); Potassium 4.3 mmol/L (3.3-5.1)
[2025-05-22 08:18] LABS: D-Dimer Quantitative (DVT/PE) 1.64 FEU/ug/m (0.27-0.49)
--- NOTE | 2025-05-22 08:24 | CT_ITS ---
PROCEDURE: CTA CHEST W/WO CONTRAST 05/22/2025 REASON FOR EXAM: ELEVATED D-DIMER Cough for 9 days. TECHNIQUE: Procedure Code: [id number] Modality: CT Procedure: CTA CHEST W/WO CONTRAST Multiplanar Sagittal and Coronal images were obtained. 3D post processing was performed CONTRAST: Isovue 370 VOLUME: 100 mL One or more dose reduction techniques were used (e.g., Automated exposure control, adjustment of the mA and/or kV according to patient size, use of iterative reconstruction technique). RADIATION DOSE SUMMARY: CTDlvol: 26 mGy DLP: 516 mGycm COMPARISON: May 22, 2025, March 11, 2022 # of known CTs in the past 12 months: 0 # of known Cardiac Nuclear Medicine Studies in the past 12 months: 0 FINDINGS: Thoracic Aorta: Mild atherosclerotic plaque. No aneurysm. No dissection. Heart: Mildly enlarged. No pericardial effusion. Coronary artery atherosclerosis. Pulmonary Vessels: The timing and quality of the contrast bolus is diagnostic. There is no evidence of acute or chronic pulmonary embolus. Hardware: None Lymph nodes: Calcified subcarinal lymph nodes. Lungs and Airways: Some circumferential thickening, stranding is seen around the subglottic trachea, mainstem bronchi. This is not particularly extend into the segmental bronchi or subsegmental bronchi. Minimal linear scarring posterior right upper lobe. Atelectasis or airspace disease inferior lingula. Linear atelectasis both lung bases. Pleura: No pleural effusion or pneumothorax. Prominent extrapleural fat extends towards the major fissure on the right. This is benign. Upper Abdomen: Fatty liver. Bones: Degenerative changes of the thoracic spine. Thyroid is enlarged with substernal extension on the right. CT/CTA Chest W/WO Contrast IMPRESSION: 1. No evidence of acute or chronic pulmonary embolus. 2. No acute aortic syndrome. 3. Mild cardiac enlargement. Multivessel coronary artery disease. 4. Circumferential thickening, mild stranding around the subglottic trachea ex tending into the mainstem bronchi. No stenosis seen. Findings suggestive of tracheobronchitis. No phlegmon, abscess or lymph adenopathy. 5. Subcarinal granuloma. 6. Fatty liver Reading Location: [id number]
[2025-05-22] MEDS: Acetaminophen/Codeine #3 Tablet 1 TABLET PO (08:33)
== END 2025-05-22 11:46 | disposition home or self-care (01) ==
PROVIDERS: Emergency Provider Emergency Medicine; PCP Family Medicine; Visit Provider Emergency Medicine
DX: J40 Bronchitis, not specified as acute or chronic (principal); E78.00 Pure hypercholesterolemia, unspecified; R05.9 Cough, unspecified; F32.A Depression, unspecified; Z79.899 Other long term (current) drug therapy; Z96.649 Presence of unspecified artificial hip joint; Z96.659 Presence of unspecified artificial knee joint
CPT/HCPCS: 71046; 71275; 80048; 85025; 85379; 87631; 94640; 99285; Q9967; A4216